=== PATIENT | female | born 1970 | race African-American/Black ===

== ENCOUNTER → 2016-10-05 | Outpatient (CLI) | payer MEDICAID ==
[~2016-10-05] MED LIST: ADENOSINE INJ 60 MG/20 ML VIAL IV ONE; REGADENOSON INJ 0.4 MG/5 ML DISP.SYRIN IV ONE
--- NOTE | 2016-10-06 15:03 | RADIOLOGY REPORT ---
STRESS TEST REPORT PAT[facility] NAME[id number] ROOM#: DATE OF SERVICE: 10/05/2016 AGE: 46Y ORDER#: [id number] REFERRING MD: DEA RUBIO M.D. INDICATION: For assessment of chest pains. PROCEDURE PERFORMED: REST/STRESS SINGLE ISOTOPE CARDIOLITE SPECT IMAGING WITH IV LEXISCAN STRES AND GATED SPECT IMAGING CLINICAL HISTORY This is a 46-year-old female with no known coronary artery disease but has two coronary artery risk factors of tobacco use and hypertension. Current symptomatology includes chest pains. PROCEDURE The patient received IV Lexiscan 0.4 mg infused over ten seconds and flushed. The resting heart rate was 77 bpm and increased to 86 bpm at end infusion. The resting BP was 127/71 and increased to 143/88 at end infusion. The patient had symptoms of mild dizziness, no chest pains, some shortness of breath. Resting 12 lead EKG showed normal sinus rhythm at 77 bpm. Anterolateral STT changes were seen. At end infusion, no additional changes were seen in the ST segments in the anterolateral leads. Myocardial perfusion imaging was performed at rest 60 minutes following injection of 13.03 mCi Cardiolite. Ten seconds after the IV Lexiscan injection, patient was injected with 43.0 mCi Cardiolite and flushed. Gated post stress tomographic imaging was performed 60 minutes after stress. FINDINGS The overall quality of the study is fair. The left ventricular cavity was noted to be normal in size on both the rest and stress studies. There was no evidence of abnormal transient ischemic dilatation of the left ventricle. The TID ratio was abnormal at 1.09 and normal. The SPECT images showed no evidence of any IV Lexiscan induced reversible ischemic defect and there was no fixed perfusion defects. The gated SPECT imaging showed no wall motion abnormality in any of the LV segments. The left ventricular ejection fraction was calculated to be 52%. IMPRESSION: 1. MYOCARDIAL PERFUSION IMAGING IS NORMAL. THERE IS NO EVIDENCE OF IV LEXISCAN INDUCED REVERSIBLE ISCHEMIA AND THERE IS NO FIXED PERFUSION DEFECT. OVERALL LEFT VENTRICULAR SYSTOLIC FUNCTION WAS NORMAL WITH NO REGIONAL WALL MOTION ABNORMALITY. LVEF WAS 52% NO PRIOR STUDIES FOR COMPARISON. INTERPRETING PHYSICIAN: DEA RUBIO M.D. /: ANGELA TT: [id number] ID: [id number] /: [id number] TD: [id number] JOB: [id number] cc:DEA RUBIO M.D. [facility]
== END ==
LOC: RAD 07:13
PROVIDERS: ATTEND Internal Medicine Cardiovascular Disease
DX: R07.89 Other chest pain (principal); I10 Essential (primary) hypertension; Z72.0 Tobacco use
CPT/HCPCS: 93017; 78452; A9500; J2785; J0153; Q9969

== ENCOUNTER → 2016-10-11 | Outpatient (CLI) | payer MEDICAID ==
[~2016-10-11] MED LIST changes: -ADENOSINE INJ 60 MG/20 ML VIAL IV ONE; +DIAZEPAM INJ 10 MG/2 ML DISP.SYRIN IV ONE; +HYDROMORPHONE HCL INJ/PF 2 MG/ML AMPULE IV ONE; -REGADENOSON INJ 0.4 MG/5 ML DISP.SYRIN IV ONE
[2016-10-11 12:08] LABS: HEMATOCRIT 35.2 % (36.0-47.0); HEMOGLOBIN 11.5 g/dL (12.0-15.5); HGB HCT DIFFERENCE -0.7; MEAN CORPUSCULAR HEMOGLOBIN 28.3 pg (27.0-33.4); MEAN CORPUSCULAR HGB CONC 32.7 g/dL (32.0-36.0); MEAN CORPUSCULAR VOLUME 87 fl (80-97); RED BLOOD COUNT 4.06 10^6/uL (3.72-5.28); RED CELL DISTRIBUTION WIDTH 14.1 % (11.5-14.0); WHITE BLOOD COUNT 3.9 10^3/uL (4.0-10.5)
[2016-10-11 12:33] LABS: ALANINE AMINOTRANSFERASE 35 U/L (9-52); ALBUMIN 4.4 g/dL (3.5-5.0); ALKALINE PHOSPHATASE 70 U/L (38-126); ANION GAP 14 (5-19); ASPARTATE AMINO TRANSFERASE 30 U/L (14-36); BILIRUBIN,TOTAL 0.7 mg/dL (0.2-1.3); BLOOD UREA NITROGEN 17 mg/dL (7-20); CALCIUM 10.1 mg/dL (8.4-10.2); CARBON DIOXIDE 25 mmol/L (22-30); CHLORIDE 101 mmol/L (98-107); CREATININE RESULT 1.22 mg/dL (0.52-1.25); Direct HDL 56 mg/dL (>40); GLUCOSE 82 mg/dL (75-110); POTASSIUM 4.6 mmol/L (3.6-5.0); SODIUM 140.3 mmol/L (137-145); TOTAL PROTEIN 7.9 g/dL (6.3-8.2); TRIGLYCERIDES 95 mg/dL (<150)
[2016-10-11 12:45] LABS: DIRECT LDL 224 mg/dL (<100)
[2016-10-11 12:46] LABS: CHOLESTEROL 341.43 mg/dL (0-200)
== END ==
LOC: OD 10:27
PROVIDERS: ATTEND Internal Medicine Cardiovascular Disease
DX: Z79.899 Other long term (current) drug therapy (principal); E66.9 Obesity, unspecified
CPT/HCPCS: 36415; 80048; 80061; 80076; 83036; 84443; 85027

== ENCOUNTER 2016-10-12 19:54 | Emergency (ER) | payer MEDICAID ==
--- NOTE | 2016-10-12 21:02 | ER Document Report ---
ED General - General Chief Complaint: Fall Injury Stated Complaint: FALL/BACK PAIN Mode of Arrival: Medic Information source: Patient Notes: 46-year-old female presents with complaints of left shoulder left hip pain. Patient notes she has a history of chronic intermittent numbness. States she was going to take a step and discharged her step. Patient fell on the left side. Patient admits to pain with ambulation movement of the left shoulder. Denies any loss of bowel or bladder function denies any cauda equina concerns TRAVEL OUTSIDE OF THE [place] IN LAST 30 DAYS: No - HPI Onset: Just prior to arrival Onset/Duration: Sudden Quality of pain: Achy Severity: Mild Pain Level: 1 Associated symptoms: Body/muscle aches Exacerbated by: Movement Relieved by: Denies Similar symptoms previously: Yes Recently seen / treated by doctor: Yes - Related Data Allergies/Adverse Reactions: aspirin [Aspirin] Allergy (Intermediate, Verified 02/10/16 21:44) rash strawberry [[place]] Allergy (Mild, Verified 02/10/16 21:44) Hives Past Medical History - Social History Smoking Status: Never Smoker Cigarette use (# per day): No Chew tobacco use (# tins/day): No Smoking Education Provided: No Family History: Reviewed & Not Pertinent Patient has suicidal ideation: No Patient has homicidal ideation: No - Past Medical History Cardiac Medical History: Reports: Hx Hypertension Pulmonary Medical History: Reports: Hx Asthma Neurological Medical History: Reports: Hx Cerebrovascular Accident - mild 2009, Hx Seizures Endocrine Medical History: Reports: Hx Hypothyroidism Renal/ Medical History: Denies: Hx Peritoneal Dialysis Musculoskeltal Medical History: Denies Hx Arthritis Past Surgical History: Reports: Hx Orthopedic Surgery - back; March 15 2016. Denies: Hx Hysterectomy - Immunizations Hx Diphtheria, Pertussis, Tetanus Vaccination: No Review of Systems - Review of Systems Notes: REVIEW OF SYSTEMS: CONSTITUTIONAL : Denies fever, chills, or sweats. Denies recent illness. EENT: Denies eye, ear, throat, or mouth pain or symptoms. Denies nasal or sinus congestion or discharge. Denies throat, tongue, or mouth swelling or difficulty swallowing. CARDIOVASCULAR: Denies chest pain. Denies palpitations or racing or irregular heart beat. Denies ankle edema. RESPIRATORY: Denies cough, cold, or chest congestion. Denies shortness of breath, difficulty breathing, or wheezing. GASTROINTESTINAL: Denies abdominal pain or distention. Denies nausea, vomiting , or diarrhea. Denies blood in vomitus, stools, or per rectum. Denies black, tarry stools. Denies constipation. GENITOURINARY: Denies difficulty urinating, painful urination, burning, frequency, blood in urine, or discharge. FEMALE GENITOURINARY: Denies vaginal bleeding, heavy or abnormal periods, irregular periods. Denies vaginal discharge or odor. MUSCULOSKELETAL: Admits to left shoulder left hip pain SKIN: Denies rash, lesions or sores. HEMATOLOGIC : Denies easy bruising or bleeding. LYMPHATIC: Denies swollen, enlarged glands. NEUROLOGICAL: Denies confusion or altered mental status. Denies passing out or loss of consciousness. Denies dizziness or lightheadedness. Denies headache. Denies weakness or paralysis or loss of use of either side. Denies problems with gait or speech. Denies sensory loss, numbness, or tingling. Denies seizures. PSYCHIATRIC: Denies anxiety or stress. Denies depression, suicidal ideation, or homicidal ideation. ALL OTHER SYSTEMS REVIEWED AND NEGATIVE. Dictation was performed using [employer] voice recognition software PHYSICAL EXAMINATION: GENERAL: Well-appearing, well-nourished and in no acute distress. HEAD: Atraumatic, normocephalic. EYES: Pupils equal round and reactive to light, extraocular movements intact, conjunctiva are normal. ENT: Nares patent, oropharynx clear without exudates. Moist mucous membranes. NECK: Normal range of motion, supple without lymphadenopathy LUNGS: Breath sounds clear to auscultation bilaterally and equal. No wheezes rales or rhonchi. HEART: Regular rate and rhythm without murmurs ABDOMEN: Soft, nontender, nondistended abdomen. No guarding, no rebound. No masses appreciated. Female : deferred Musculoskeletal: Normal range of motion, no pitting or edema. No cyanosis. NEUROLOGICAL: Cranial nerves grossly intact. Normal speech, normal gait. Normal sensory, motor exams pulses are intact PSYCH: Normal mood, normal affect. SKIN: Warm, Dry, normal turgor, no rashes or lesions noted. Course - Re-evaluation Re-evalutation: 10/12/16 21:46 Patient does have tenderness of the left shoulder and left hip. X-rays noted no significant abnormality and I expect any traumatic injuries. Patient notes she takes 15 of oxycodone for her chronic back pain. Is noted in multiple previous charts the patient has numbness of the left lower extremity Patient has no cauda equina concerns 10/12/16 22:09 Patient requests a sling for comfort this will be provided to her. Family member wish to take patient home I will discharge at this time After performing a Medical Screening Examination, I estimate there is LOW risk for EXPANDING OR RUPTURED ABDOMINAL AORTIC ANEURYSM, CAUDA EQUINA SYNDROME, EPIDURAL MASS LESION, or HERNIATED DISK CAUSING SEVERE SPINAL STENOSIS, thus I consider the discharge disposition reasonable. The patient and I have discussed the diagnosis and risks, and we agree with discharging home and close follow-up. We also discussed returning to the Emergency Department immediately if new or worsening symptoms occur with the understanding that symptoms and presentations can change. We have discussed the symptoms which are most concerning (e.g., saddle anesthesia, urinary or bowel incontinence or retention , changing or worsening pain) that necessitate immediate return. - Diagnostic Test Radiology reviewed: Image reviewed, Reports reviewed - Reports and images given to family Discharge - Discharge Clinical Impression: Left hip pain Left shoulder pain Qualifiers: Chronicity: acute Qualified Code(s): M25.512 - Pain in left shoulder Fall Qualifiers: Encounter type: initial encounter Qualified Code(s): W19.XXXA - Unspecified fall, initial encounter Condition: Stable Disposition: HOME, SELF-CARE Instructions: Contusion ([facility]), Shoulder Injury ([facility]) Prescriptions: Morphine Sulfate [Morphine Ir 15 Mg Tablet] 15 mg PO Q8 #10 tablet Referrals: DONNA SCHREIBER MD [Primary Care Provider] - Follow up as needed JONATHAN HINSON MD [ACTIVE STAFF] - Follow up tomorrow
[2016-10-12] MEDS ORDERED: DIAZEPAM INJ 10 MG/2 ML DISP.SYRIN IV ONE (21:43)
[2016-10-12] MEDS ORDERED: HYDROMORPHONE HCL INJ/PF 2 MG/ML AMPULE IV ONE (21:43)
[2016-10-12 22:42] VITALS: BP 143/85
== END 2016-10-12 22:42 | disposition home or self-care (01) ==
LOC: ER 19:54
DX: M25.512 Pain in left shoulder (principal); M25.552 Pain in left hip; W10.9XXA Fall (on) (from) unspecified stairs and steps, initial encounter; R20.0 Anesthesia of skin; M54.9 Dorsalgia, unspecified; G89.29 Other chronic pain; J45.909 Unspecified asthma, uncomplicated; I10 Essential (primary) hypertension; Z79.891 Long term (current) use of opiate analgesic; Z86.73 Personal history of transient ischemic attack (TIA), and cerebral infarction without residual deficits; Z88.6 Allergy status to analgesic agent; Z91.018 Allergy to other foods
CPT/HCPCS: 99283; 96374; 96375; 73502; 73030; J3360; J1170

== ENCOUNTER → 2016-10-20 | Outpatient (CLI) | payer MEDICAID | LOC: RAD 12:57 | PROVIDERS: ATTEND Family Medicine | DX: S20.212A Contusion of left front wall of thorax, initial encounter (principal); Z98.1 Arthrodesis status | CPT/HCPCS: 72110 ==

== ENCOUNTER 2016-12-22 16:15 | Emergency (ER) | payer MEDICAID ==
[2016-12-23 11:03] LABS: ABSOLUTE BASOPHILS # (AUTO) 0.1 10^3/uL (0.0-0.2); ABSOLUTE EOSINOPHILS # (AUTO) 0.1 10^3/uL (0.0-0.6); ABSOLUTE MONOCYTES (AUTO) 0.4 10^3/uL (0.1-1.4); ABSOLUTE NEUT (AUTO) 2.7 10^3/uL (1.7-8.2); BASOPHILS % (AUTO) 1.1 % (0-2); EOSINOPHILS % (AUTO) 1.7 % (0-6); HEMATOCRIT 39.5 % (36.0-47.0); HEMOGLOBIN 12.9 g/dL (12.0-15.5); HGB HCT DIFFERENCE -0.8; LYMPHOCYTES % (AUTO) 38.5 % (13-45); MEAN CORPUSCULAR HEMOGLOBIN 28.8 pg (27.0-33.4); MEAN CORPUSCULAR HGB CONC 32.7 g/dL (32.0-36.0); MEAN CORPUSCULAR VOLUME 88 fl (80-97); MONOCYTES % (AUTO) 7.3 % (3-13); RED CELL DISTRIBUTION WIDTH 15.8 % (11.5-14.0); SEGMENTED NEUTROPHILS % (AUTO) 51.4 % (42-78); WHITE BLOOD COUNT 5.3 10^3/uL (4.0-10.5)
[2016-12-23 11:45] LABS: CALCIUM 10.1 mg/dL (8.4-10.2); GLUCOSE 102 mg/dL (75-110)
[2016-12-23 11:46] LABS: ANION GAP 12 (5-19); BLOOD UREA NITROGEN 24 mg/dL (7-20); CARBON DIOXIDE 26 mmol/L (22-30); CHLORIDE 104 mmol/L (98-107); CREATININE RESULT 1.35 mg/dL (0.52-1.25); POTASSIUM 4.4 mmol/L (3.6-5.0); SODIUM 142.2 mmol/L (137-145)
[2016-12-23 11:47] LABS: ALANINE AMINOTRANSFERASE 26 U/L (9-52); ALBUMIN 4.3 g/dL (3.5-5.0); ALKALINE PHOSPHATASE 65 U/L (38-126); ASPARTATE AMINO TRANSFERASE 42 U/L (14-36); BILIRUBIN,DIRECT 0.3 mg/dL (0.0-0.4); BILIRUBIN,TOTAL 0.3 mg/dL (0.2-1.3); TOTAL PROTEIN 8.4 g/dL (6.3-8.2)
[2016-12-23 14:12] LABS: APPEARANCE,URINE CLEAR; BILIRUBIN,URINE NEGATIVE (NEGATIVE); GLUCOSE, URINE NEGATIVE (NEGATIVE); KETONES,URINE NEGATIVE (NEGATIVE); LEUKOCYTE ESTERASE,URINE NEGATIVE (NEGATIVE); NITRITE,URINE NEGATIVE (NEGATIVE); PROTEIN,URINE NEGATIVE (NEGATIVE); URINE SPECIFIC GRAVITY 1.011; UROBILINOGEN,URINE NEGATIVE mg/dL (<2.0)
== END 2016-12-22 19:30 | disposition left against medical advice (07) ==
LOC: ER 16:15
DX: Z53.9 Procedure and treatment not carried out, unspecified reason (principal)
CPT/HCPCS: 36415; 80053; 81001; 84703; 85025

== ENCOUNTER → 2016-12-27 | Outpatient (CLI) | payer MEDICARE, MEDICAID ==
--- NOTE | 2016-12-28 11:11 | RADIOLOGY REPORT (SQ) ---
EXAM DESCRIPTION: MRI HEAD COMBO COMPLETED DATE/TIME: 12/27/2016 5:09 pm REASON FOR STUDY: SEIZURES G40.89 OTHER SEIZURES COMPARISON: None. TECHNIQUE: Multiplanar imaging includes noncontrasted T1, T2, FLAIR, diffusion with ADC map and post gadolinium contrast T1 sequences. Images stored on PACS. CONTRAST TYPE AND DOSE: 20 mL Multihance. RENAL FUNCTION: GFR 51 LIMITATIONS: Motion. FINDINGS: ANATOMY: No anomalies. Normal vascular flow voids. Pituitary fossa normal. CSF SPACES: Normal in size and contour. No hemorrhage. CEREBRUM: Sulci and gyri normal in size and contour. Normal white matter signal on FLAIR imaging. No evidence of hemorrhage, mass, or extraaxial fluid collection. No abnormal enhancement post contrast. POSTERIOR FOSSA: No signal alteration. No hemorrhage. No edema, masses, or mass effect. Internal tiffanie tory canals, cerebellopontine angles, mastoids normal. No enhancing lesions. No abnormal enhancement post contrast. DIFFUSION IMAGING: Negative for acute or subacute infarction. ORBITS: No masses. Globes normal. PARANASAL SINUSES: No fluid levels. Mucosa normal. OTHER: No other significant finding. IMPRESSION: Normal brain. TECHNICAL DOCUMENTATION: JOB ID: [id number] [employer]- All Rights Reserved
== END ==
LOC: RAD 13:52
PROVIDERS: ATTEND Specialist
DX: G40.89 Other seizures (principal)
CPT/HCPCS: 70553; A9577

== ENCOUNTER 2017-01-25 16:04 | Emergency (ER) | payer MEDICARE, MEDICAID ==
--- NOTE | 2017-01-25 16:34 | ER Document Report ---
ED Seizure - General Chief Complaint: Probable Seizure Stated Complaint: POSSIBLE SEIZURE Time Seen by Provider: 01/25/17 16:21 Information source: Patient Notes: 47-year-old female who presents today with EMS from her pain management physician's office at the patient supposedly had a witnessed tonic-clonic seizure. Patient states she has had a history of seizure disorders since she was 14[address] seals of the neurologist. Patient supposedly had a recent change of medications, being taken off Topamax and started on Zonegran. Patient states she normally has around 1-2 seizures a month. Patient denied any symptoms prior to or after the seizure other than just feeling "tired now". It was a witnessed seizure with no head trauma. Patient denies any headache, neck pain, chest pain, abdominal pain, or weakness or numbness. Patient takes seizure medication, oxycodone 10 mg, Valium 5 mg, and alprazolam. Patient states she does not drive a car. Patient denies missing any seizure medications. Patient's last seizure she states was 3 weeks ago. TRAVEL OUTSIDE OF THE [place] IN LAST 30 DAYS: No - HPI Patient complains to provider of: History of seizures Quality of pain: No pain Severity: Moderate Pain Level: Denies Continued on arrival to ED: No Can details of seizure be obtained/verified: Yes Episode witnessed (by whom): Yes Current seizure medications: Other - See above Preceding symptoms/context: Changed meds or dosage - See above. denies: Recent illness/fever, Sleep deprivation, Missed dose of meds Character of seizure: Complete loss/conscious, Generalized shaking Post-ictal symptoms: Confusion, Other - See above Injuries: None - Related Data Allergies/Adverse Reactions: aspirin [Aspirin] Allergy (Intermediate, Verified 02/10/16 21:44) rash strawberry [[place]] Allergy (Mild, Verified 02/10/16 21:44) Hives Home Medications: Current Home Medications Citalopram Hydrobromide [Celexa] 1 tab PO DAILY 01/25/17 [History] Diazepam 5 mg PO DAILY 01/25/17 [History] Levothyroxine Sodium 100 mcg PO DAILY 01/25/17 [History] Metoprolol Tartrate 100 mg PO BID 01/25/17 [History] Oxycodone HCl 15 mg PO DAILY PRN 01/25/17 [History] Zonisamide 100 mg PO DAILY 01/25/17 [History] Past Medical History - General Information source: Patient - Social History Smoking Status: Unknown if Ever Smoked Cigarette use (# per day): No Chew tobacco use (# tins/day): No Smoking Education Provided: No Frequency of alcohol use: None Drug Abuse: None Family History: Reviewed & Not Pertinent - Past Medical History Cardiac Medical History: Reports: Hx Hypertension Pulmonary Medical History: Reports: Hx Asthma Neurological Medical History: Reports: Hx Cerebrovascular Accident - mild 2009, Hx Seizures Endocrine Medical History: Reports: Hx Hypothyroidism Renal/ Medical History: Denies: Hx Peritoneal Dialysis Musculoskeltal Medical History: Denies Hx Arthritis Past Surgical History: Reports: Hx Orthopedic Surgery - back; March 15 2016. Denies: Hx Hysterectomy - Immunizations Hx Diphtheria, Pertussis, Tetanus Vaccination: No Review of Systems - Review of Systems Constitutional: denies: Fever EENT: denies: Eye discharge, Nose discharge Cardiovascular: denies: Chest pain, Palpitations Respiratory: denies: Short of breath Gastrointestinal: denies: Vomiting Genitourinary: denies: Dysuria Musculoskeletal: denies: Leg swelling Skin: Other - no hives. denies: Rash Neurological/Psychological: Other - no slurred speech -: Yes All other systems reviewed and negative Physical Exam - Vital signs Vitals: Temp Resp 98.1 F 20 01/25/17 16:05 01/25/17 16:05 Notes: Reviewed vital signs and nursing note as charted by RN. CONSTITUTIONAL: Alert and oriented and responds appropriately to questions. Well -appearing; well-nourished HEAD: Normocephalic; atraumatic EYES: PERRL; no nystagmus NECK: Supple without meningismus; no carotid bruits; non-tender; no cervical lymphadenopathy, no masses CARD: Regular rate and rhythm; no murmurs, no clicks, no rubs, no gallops; symmetric distal pulses RESP: Normal chest excursion without splinting or tachypnea; breath sounds clear and equal bilaterally ABD/GI: Normal bowel sounds; non-distended; soft, non-tender BACK: The back appears normal and is non-tender to palpation EXT: Normal ROM in all joints; non-tender to palpation; no cyanosis, no effusions, no edema SKIN: Normal color for age and race; warm; dry; good turgor; capillary refill < 2 seconds; no acute lesions noted NEURO: CN II through XII are intact. Patient has 5 out of 5 bilateral upper and lower extremity strength or sensation intact to light touch PSYCH: The patient's mood and manner are appropriate. Grooming and personal hygiene are appropriate. Course - Re-evaluation Re-evalutation: 01/25/17 16:37 Given the above history and physical examination, with stable vital signs, witnessed seizure with no trauma, history of seizures as well as being on multiple other medications including pain medication and antianxiety medications , I do not believe that a CT scan of the head is necessary. Given that the patient normally has around one seizure per month, with this being the first seizure after 3 weeks, I do not believe we need to adjust medications at this time. 01/25/17 18:28 Chemistry as recorded. Creatinine is baseline. Patient is tolerating p.o. fluids. Patient still has no headache or focal neurological deficits. - Vital Signs Vital signs: Temp Pulse Resp BP Pulse Ox 98.1 F 16 134/74 H 100 01/25/17 16:05 01/25/17 16:18 01/25/17 16:18 01/25/17 16:18 - Laboratory Result Diagrams: 01/25/17 16:50 01/25/17 16:50 Laboratory results interpreted by me: 01/25/17 16:50 BUN 22 H Creatinine 1.32 H Est GFR ( Amer) 52 L Est GFR (Non-Af Amer) 43 L Discharge - Discharge Clinical Impression: Seizure Condition: Good Disposition: HOME, SELF-CARE Additional Instructions: Come back immediately with any weakness or numbness, fever, pain, repeat seizures, or any other acute problems. Please do not drive a car, take a bath, go swimming, or engage in any other activities that may cause serious harm or if you should have a repeat seizure episode. Please follow-up with your neurologist
[2017-01-25 17:36] LABS: ALANINE AMINOTRANSFERASE 27 U/L (9-52); ALBUMIN 4.2 g/dL (3.5-5.0); ALKALINE PHOSPHATASE 57 U/L (38-126); ANION GAP 11 (5-19); ASPARTATE AMINO TRANSFERASE 30 U/L (14-36); BILIRUBIN,DIRECT 0.3 mg/dL (0.0-0.4); BILIRUBIN,TOTAL 0.3 mg/dL (0.2-1.3); BLOOD UREA NITROGEN 22 mg/dL (7-20); CALCIUM 9.9 mg/dL (8.4-10.2); CARBON DIOXIDE 22 mmol/L (22-30); CHLORIDE 105 mmol/L (98-107); CREATININE RESULT 1.32 mg/dL (0.52-1.25); GLUCOSE 89 mg/dL (75-110); POTASSIUM 4.1 mmol/L (3.6-5.0); SODIUM 137.5 mmol/L (137-145); TOTAL PROTEIN 7.8 g/dL (6.3-8.2)
[2017-01-25] MEDS ORDERED: NORMAL SALINE 1000 ML 1,000 ML IV ONE (18:27)
[2017-01-25 18:36] LABS: ABSOLUTE EOSINOPHILS # (AUTO) 0.2 10^3/uL (0.0-0.6); ABSOLUTE LYMPHOCYTES (AUTO) 1.6 10^3/uL (0.5-4.7); ABSOLUTE MONOCYTES (AUTO) 0.4 10^3/uL (0.1-1.4); ABSOLUTE NEUT (AUTO) 2.3 10^3/uL (1.7-8.2); BASOPHILS % (AUTO) 0.9 % (0-2); EOSINOPHILS % (AUTO) 3.6 % (0-6); HEMATOCRIT 36.5 % (36.0-47.0); HEMOGLOBIN 11.9 g/dL (12.0-15.5); HGB HCT DIFFERENCE -0.8; LYMPHOCYTES % (AUTO) 35.1 % (13-45); MEAN CORPUSCULAR HEMOGLOBIN 29.2 pg (27.0-33.4); MEAN CORPUSCULAR HGB CONC 32.6 g/dL (32.0-36.0); MEAN CORPUSCULAR VOLUME 90 fl (80-97); MONOCYTES % (AUTO) 9.7 % (3-13); RED BLOOD COUNT 4.07 10^6/uL (3.72-5.28); SEGMENTED NEUTROPHILS % (AUTO) 50.7 % (42-78); WHITE BLOOD COUNT 4.5 10^3/uL (4.0-10.5)
[2017-01-25 18:48] VITALS: BP 126/87
== END 2017-01-25 18:57 | disposition home or self-care (01) ==
LOC: ER 16:04
DX: G40.909 Epilepsy, unspecified, not intractable, without status epilepticus (principal); I10 Essential (primary) hypertension; J45.909 Unspecified asthma, uncomplicated; Z79.899 Other long term (current) drug therapy; Z79.891 Long term (current) use of opiate analgesic; Z88.6 Allergy status to analgesic agent; Z91.013 Allergy to seafood; Z86.73 Personal history of transient ischemic attack (TIA), and cerebral infarction without residual deficits
CPT/HCPCS: 36415; 80053; 84703; 85025; 99284

== ENCOUNTER 2017-02-23 19:34 | Emergency (ER) | payer MEDICARE, MEDICAID ==
--- NOTE | 2017-02-23 21:05 | ER Document Report ---
ED Dizziness/Weakness - General Chief Complaint: Dizziness Stated Complaint: DIZZY, HEAD PAIN, METALLIC TASTE IN MOUTH Time Seen by Provider: 02/23/17 20:36 Mode of Arrival: Ambulatory Information source: Patient Notes: No female presents to ED for dizziness headaches since Tuesday. She states she was diagnosed by Dr. Sauceda with vertigo 3 months ago and she has a history of seizures and is on diazepam for my Vimpat seizures she was started on a vertigo medicine today but she did not pick it up Komal's office today for an hour and he agreed to increase her zonisamide 200 mg twice daily but the prescription was not at the pharmacy. Also hypothyroid high blood pressure anxiety depression arthritis and herniated and shattered disc. TRAVEL OUTSIDE OF THE [place] IN LAST 30 DAYS: No - HPI Patient complains to provider of: Dizziness, Vertigo Onset: Last week Onset/Duration: Intermittent Quality of pain: Achy Severity: Moderate Pain Level: 3 Associated symptoms: Dizzy, Vertigo Exacerbated by: Change in position Baseline gait: Walks w/o assistance - Related Data Allergies/Adverse Reactions: aspirin [Aspirin] Allergy (Intermediate, Verified 02/23/17 19:56) rash strawberry [[place]] Allergy (Mild, Verified 02/23/17 19:56) Hives Past Medical History - General Information source: Patient - Social History Smoking Status: Never Smoker Cigarette use (# per day): No Chew tobacco use (# tins/day): No Smoking Education Provided: No Frequency of alcohol use: None Drug Abuse: None Lives with: Parents Family History: Arthritis, DM, Hyperlipidemia. denies: CAD, COPD, CVA, Hypertension, Malignancy, Thyroid Disfunction Patient has suicidal ideation: No Patient has homicidal ideation: No - Past Medical History Cardiac Medical History: Reports: Hx Hypertension Pulmonary Medical History: Reports: Hx Asthma EENT Medical History: Reports: None Neurological Medical History: Reports: Hx Cerebrovascular Accident - mild 2009, Hx Seizures Endocrine Medical History: Reports: Hx Hypothyroidism Renal/ Medical History: Reports: None Malignancy Medical History: Reports: None GI Medical History: Reports: None Musculoskeltal Medical History: Reports Hx Arthritis, Reports Hx Musculoskeletal Deformity, Reports Hx Musculoskeletal Trauma Skin Medical History: Reports None Psychiatric Medical History: Reports: Hx Anxiety, Hx Depression Traumatic Medical History: Reports: None Infectious Medical History: Reports: None Past Surgical History: Reports: Hx Orthopedic Surgery - back; March 15 2016 - Immunizations Immunizations up to date: No Hx Diphtheria, Pertussis, Tetanus Vaccination: No Review of Systems - Review of Systems Constitutional: No symptoms reported EENT: No symptoms reported Cardiovascular: Dizziness Respiratory: No symptoms reported Gastrointestinal: No symptoms reported Genitourinary: No symptoms reported Female Genitourinary: No symptoms reported Musculoskeletal: No symptoms reported Skin: No symptoms reported Hematologic/Lymphatic: No symptoms reported Neurological/Psychological: Headaches -: Yes All other systems reviewed and negative Physical Exam - Vital signs Vitals: Temp Pulse Resp BP Pulse Ox 98.6 F 65 16 148/83 H 100 02/23/17 19:47 02/23/17 19:47 02/23/17 19:47 02/23/17 19:47 02/23/17 19:47 Interpretation: Normal - General General appearance: Appears well, Alert - HEENT Head: Normocephalic, Atraumatic Eyes: Normal Pupils: PERRL - Respiratory Respiratory status: No respiratory distress Chest status: Nontender Breath sounds: Normal Chest palpation: Normal - Cardiovascular Rhythm: Regular Heart sounds: Normal auscultation Murmur: No - Abdominal Inspection: Normal Distension: No distension Bowel sounds: Normal Tenderness: Nontender Organomegaly: No organomegaly - Back Back: Normal, Nontender - Extremities General upper extremity: Normal inspection, Nontender, Normal color, Normal ROM , Normal temperature General lower extremity: Normal inspection, Nontender, Normal color, Normal ROM , Normal temperature, Normal weight bearing. No: Teri's sign - Neurological Neuro grossly intact: Yes Cognition: Normal Orientation: AAOx4 Nely Coma Scale Eye Opening: Spontaneous Nely Coma Scale Verbal: Oriented Nely Coma Scale Motor: Obeys Commands Nely Coma Scale Total: 15 Speech: Normal Motor strength normal: LUE, RUE, LLE, RLE Sensory: Normal - Psychological Associated symptoms: Normal affect, Normal mood - Skin Skin Temperature: Warm Skin Moisture: Dry Skin Color: Normal Course - Re-evaluation Re-evalutation: 02/23/17 23:47 Dr. Sauceda earlier this evening and spoke with his who stated that she will be prescribed a prescription for this patient's zonisamide she was given a dose tonight. The patient is now stable she is able to get up and down she has had no seizures during her stay here in the emergency room. Her labs are stable and I have given her copy of the labs to follow-up with her primary doctor. To continue all medications as prescribed. - Vital Signs Vital signs: Temp Pulse Resp BP Pulse Ox 98.6 F 69 16 161/95 H 100 02/23/17 19:47 02/23/17 23:42 02/23/17 23:42 02/23/17 23:42 02/23/17 23:01 - Laboratory Result Diagrams: 02/23/17 21:49 02/23/17 21:49 Laboratory results interpreted by me: 02/23/17 02/23/17 02/23/17 21:49 21:49 21:49 RDW 15.6 H Creatinine 1.44 H Est GFR ( Amer) 47 L Est GFR (Non-Af Amer) 39 L Total Protein 8.3 H Ur Leukocyte Esterase TRACE H Discharge - Discharge Clinical Impression: Dizziness, Vertigo Condition: Stable Disposition: HOME, SELF-CARE Additional Instructions: DIZZINESS: Under normal circumstances, your sense of balance is controlled by a number of signals that your brain receives from several locations: Eyes. No matter what your position, visual signals help you determine where your body is in space and how it's moving. Sensory nerves. These are in your skin, muscles and joints. Sensory nerves send messages to your brain about body movements and positions. Inner ear. The organ of balance in your inner ear is the vestibular labyrinth. It includes loop-shaped structures (semicircular canals) that contain fluid and fine, hair-like sensors that monitor the rotation of your head. Near the semicircular canals are the utricle and saccule, which contain tiny particles called otoconia (o-nci-KAW-nee-uh). These particles are attached to sensors that help detect gravity and gsay-ygp-cdngm motion. Good balance depends on at least two of these three sensory systems working well. For instance, closing your eyes while washing your hair in the shower doesn't mean you'll lose your balance. Signals from your inner ear and sensory nerves help keep you upright. However, if your central nervous system can't process signals from all of these locations, if the messages are contradictory, or if the sensory systems aren't functioning properly, you may experience loss of balance. Dizziness may have a number of potential causes. These may include: Vertigo Vertigo - the false sense of motion or spinning - is the most common symptom of dizziness. Sitting up or moving around may make it worse. Sometimes vertigo is severe enough to cause nausea and vomiting. Vertigo usually results from a problem with the nerves and the structures of the balance mechanism in your inner ear (vestibular system), which sense movement and changes in your head position. Abnormal rhythmic eye movements ( nystagmus) almost always accompany vertigo. Causes of vertigo may include: Benign paroxysmal positional vertigo (BPPV). BPPV involves intense, brief episodes of vertigo associated with a change in the position of your head, often when you turn over in bed or sit up in the morning. It occurs when normal calcium carbonate crystals (otoconia) break loose and fall into the wrong part of the canals in your inner ear. When these particles shift, they stimulate sensors in your ear, producing an episode of vertigo. Doctors don't know what causes BPPV, but it may be a natural result of aging. Trauma to your head also may lead to BPPV. Inflammation in the inner ear. Signs and symptoms of inflammation of the inner ear (acute vestibular neuronitis or labyrinthitis) include sudden, intense vertigo that may persist for several days, with nausea and vomiting. It can be incapacitating, requiring bed rest to minimize the signs and symptoms. Fortunately, vestibular neuronitis generally subsides and clears up on its own. Recovery time may be shorter with vestibular rehabilitation exercises. Although the cause of this condition is unknown, it may be a viral infection. Meniere's disease. This disease involves the excessive buildup of fluid in your inner ear. It may affect adults at any age and is characterized by sudden episodes of vertigo lasting 30 minutes to an hour or longer. Other signs and symptoms include the feeling of fullness in your ear, buzzing or ringing in your ear (tinnitus), and fluctuating hearing loss. The cause of Meniere's disease is unknown. Vestibular migraine. People who experience a vestibular migraine are very sensitive to motion. Dizziness and vertigo caused by a vestibular migraine may be triggered by turning your head quickly, being in a crowded or confusing place , driving or riding in a vehicle, or even watching movement on TV. A vestibular migraine may cause feelings of imbalance or unsteadiness, hearing loss, "muffled " hearing, or ringing in your ears (tinnitus). For most people with a vestibular migraine, vertigo doesn't necessarily happen at the same time as the headache. Instead, typical migraine triggers may lead to vertigo without an actual migraine. Attacks of migrainous vertigo can last from a few minutes to several days. Acoustic neuroma. An acoustic neuroma (schwannoma) is a noncancerous (benign ) growth on the acoustic nerve, which connects the inner ear to your brain. Signs and symptoms of an acoustic neuroma may include dizziness, loss of balance , hearing loss and tinnitus. Rapid changes in motion. Riding on roller coasters or in boats, cars or even airplanes may on occasion make you dizzy. Other causes. Rarely, vertigo can be a symptom of a more serious neurological problem such as a stroke, brain hemorrhage or multiple sclerosis. Feeling of faintness (presyncope) "Presyncope" is the medical term for feeling faint and lightheaded without losing consciousness. Sometimes nausea, pale skin and a sense of dizziness accompany a feeling of faintness. Causes of presyncope include: Drop in blood pressure (orthostatic hypotension). A dramatic drop in your systolic blood pressure - the higher number in your blood pressure reading - may result in lightheadedness or a feeling of faintness. It can occur after sitting up or standing too quickly. Inadequate output of blood from the heart. Conditions such as partially blocked arteries (atherosclerosis), disease of the heart muscle (cardiomyopathy) , abnormal heart rhythm (arrhythmia) or a decrease in blood volume may cause inadequate blood flow from your heart. Loss of balance (disequilibrium) Disequilibrium is the loss of balance or the feeling of unsteadiness when you walk. Causes may include: Inner ear (vestibular) problems. Abnormalities with your inner ear can cause you to feel like you are floating, have a heavy head or are unsteady in the dark. Sensory disorders. Failing vision and nerve damage in your legs (peripheral neuropathy) are common in older adultsand may result in difficulty maintaining your balance. Joint and muscle problems. Muscle weakness and osteoarthritis - the type of arthritis that involves wear and tear of your joints - can contribute to loss of balance when it involves your weight-bearing joints. Medications. Loss of balance can be a side effect of certain medications, such as anti-seizure drugs, sedatives and tranquilizers. Lightheadedness and other kinds of dizziness Feeling lightheaded is the feeling of being "spaced out" or having the sensation of spinning inside your head. It can also give you the sensation that if your lightheadedness worsens, you might lose consciousness. Causes may include: Inner ear disorders. These abnormalities of your inner ear can lead to illusions of motion and make you feel like you're floating. Anxiety disorders. Certain anxiety disorders, such as panic attacks and a fear of leaving home or being in large, open spaces (agoraphobia), may cause lightheadedness. Hyperventilation. Abnormally rapid breathing that often accompanies anxiety disorders may make you feel lightheaded. NORMAL EXAM AND WORKUP: At this time, your examination and workup show no significant abnormality. No significant abnormal physical findings were noted. All laboratory, EKG, and imaging (x-ray, CT scans, ultrasound) studies that were ordered show no significant abnormality. Although your examination and all studies that were ordered showed no significant abnormal finding, there are no examinations and no studies that are 100% accurate. There is always the possibility that some abnormality could exist and not be detected with physical examination or within the limits and capabilities of laboratory and other studies. You should return or follow up as you were instructed on your visit today for further evaluation if your symptoms do not resolve. ANTINAUSEA MEDICATION: You have been given a medication to suppress nausea and vomiting. This type of medication can be given as a shot, pill, or suppository. It will usually last for many hours. Pills and shots usually last six to eight hours, suppositories last about 12 hours. For the typical illness, only one or two doses of the medication may be necessary. Mild lightheadedness may occur. This type of medicine can cause drowsiness. Do not drive or operate dangerous machinery while under its influence. Do not mix with alcohol. See your doctor at once if you have muscle spasms or tightness, or uncontrollable motions (particularly of the neck, mouth, or jaw). Persistent vomiting or severe lightheadedness should also be evaluated by the physician. FOLLOW-UP CARE: If you have been referred to a physician for follow-up care, call the physician s office for an appointment as you were instructed or within the next two days. If you experience worsening or a significant change in your symptoms, notify the physician immediately or return to the Emergency Department at any time for re-evaluation. Your labs have been provided to you to follow-up with your primary doctor. Please make take medications as prescribed. Your prescription for zonisamide been E prescribed by Dr. Sauceda. Forms: Elevated Blood Pressure Referrals: DONNA SCHREIBER MD [Primary Care Provider] - Follow up as needed VIVIANE SAUCEDA MD [EMERITUS] - Follow up as needed
[2017-02-23] MEDS ORDERED: ZONISAMIDE 100 MG CAPSULE PO ONE (21:11)
[2017-02-23 21:58] LABS: ABSOLUTE EOSINOPHILS # (AUTO) 0.1 10^3/uL (0.0-0.6); ABSOLUTE LYMPHOCYTES (AUTO) 1.8 10^3/uL (0.5-4.7); ABSOLUTE MONOCYTES (AUTO) 0.3 10^3/uL (0.1-1.4); ABSOLUTE NEUT (AUTO) 2.3 10^3/uL (1.7-8.2); BASOPHILS % (AUTO) 0.9 % (0-2); EOSINOPHILS % (AUTO) 2.8 % (0-6); HEMATOCRIT 40.8 % (36.0-47.0); HEMOGLOBIN 13.3 g/dL (12.0-15.5); HGB HCT DIFFERENCE -0.9; LYMPHOCYTES % (AUTO) 38.7 % (13-45); MEAN CORPUSCULAR HEMOGLOBIN 29.9 pg (27.0-33.4); MEAN CORPUSCULAR HGB CONC 32.6 g/dL (32.0-36.0); MEAN CORPUSCULAR VOLUME 92 fl (80-97); MONOCYTES % (AUTO) 7.3 % (3-13); RED BLOOD COUNT 4.45 10^6/uL (3.72-5.28); RED CELL DISTRIBUTION WIDTH 15.6 % (11.5-14.0); SEGMENTED NEUTROPHILS % (AUTO) 50.3 % (42-78); WHITE BLOOD COUNT 4.7 10^3/uL (4.0-10.5)
[2017-02-23 22:13] LABS: ALANINE AMINOTRANSFERASE 39 U/L (9-52); ALBUMIN 4.6 g/dL (3.5-5.0); ALKALINE PHOSPHATASE 61 U/L (38-126); ANION GAP 11 (5-19); ASPARTATE AMINO TRANSFERASE 26 U/L (14-36); BILIRUBIN,DIRECT 0.3 mg/dL (0.0-0.4); BILIRUBIN,TOTAL 0.4 mg/dL (0.2-1.3); BLOOD UREA NITROGEN 18 mg/dL (7-20); CALCIUM 9.8 mg/dL (8.4-10.2); CARBON DIOXIDE 24 mmol/L (22-30); CHLORIDE 106 mmol/L (98-107); CREATININE RESULT 1.44 mg/dL (0.52-1.25); GLUCOSE 91 mg/dL (75-110); POTASSIUM 4.4 mmol/L (3.6-5.0); SODIUM 140.6 mmol/L (137-145); TOTAL PROTEIN 8.3 g/dL (6.3-8.2)
[2017-02-23 22:40] LABS: APPEARANCE,URINE SLIGHTLY-CLOUDY; BILIRUBIN,URINE NEGATIVE (NEGATIVE); GLUCOSE, URINE NEGATIVE (NEGATIVE); KETONES,URINE NEGATIVE (NEGATIVE); LEUKOCYTE ESTERASE,URINE TRACE (NEGATIVE); NITRITE,URINE NEGATIVE (NEGATIVE); PROTEIN,URINE NEGATIVE (NEGATIVE); URINE SPECIFIC GRAVITY 1.024; UROBILINOGEN,URINE NEGATIVE mg/dL (<2.0)
[2017-02-23 23:43] VITALS: BP 161/95
== END 2017-02-23 23:59 | disposition home or self-care (01) ==
LOC: ER 19:34
DX: R42 Dizziness and giddiness (principal); R51 Headache; R43.9 Unspecified disturbances of smell and taste; Z79.899 Other long term (current) drug therapy
CPT/HCPCS: 99284; 36415; 85025; 80053; 81001; A9270; J3490

== ENCOUNTER → 2017-06-24 | Outpatient (CLI) | payer MEDICARE, MEDICAID ==
--- NOTE | 2017-06-27 09:03 | RADIOLOGY REPORT (SQ) ---
EXAM DESCRIPTION: MRI LUMBAR SPINE COMBO COMPLETED DATE/TIME: 06/24/2017 6:13 pm REASON FOR STUDY: SCIATICA LEFT SIDE M54.32 SCIATICA, LEFT SIDE COMPARISON: MRI lumbar spine 03/06/2012, 02/10/2016, 02/27/2016 TECHNIQUE: Sagittal and Axial imaging includes T1, T1 post gadolinium, T2, STIR and gradient echo se quences. Coronal T2/HASTE imaging. CONTRAST TYPE AND DOSE: 15 mL Prohance. RENAL FUNCTION: Estimated GFR 57 LIMITATIONS: Mild metallic artifact from lower lumbar fusion FINDINGS: VISUALIZED UPPER ABDOMEN: Limited evaluation. No acute or suspicious findings suggested. SEGMENTATION: No transitional anatomy. The lowest well-developed disc space is labeled L5-S1. ALIGNMENT: Anatomic. VERTEBRAE: Intact. No fractures. BONE MARROW: Normal. No marrow replacement or reactive changes. DISC SIGNAL: Normal. No significant abnormal signal or loss of height. POSTERIOR ELEMENTS: Old left micro laminectomy at L5 HARDWARE: Anterior and posterior fusion hardware L4 through S1 CORD AND CONUS: Normal in size and signal intensity. Conus at the L1-2 level. SOFT TISSUES: No aortic aneurysm seen. No bulky retroperitoneal adenopathy or mass. No paraspinal mas s or fluid. T11-12: Mild bilateral facet hypertrophy. No significant central or foraminal encroachment T12-L1: Mild bilateral facet hypertrophy. No significant central or foraminal encroachment L1-L2: Moderate bilateral facet hypertrophy. No posterior disc bulging. No significant central or f oraminal encroachment. L2-L3: Moderate bilateral facet hypertrophy. No posterior disc bulging. No significant central or f oraminal encroachment. L3-L4: Moderate bilateral facet hypertrophy. No posterior disc bulging. No significant central or f oraminal encroachment. L4-L5: Post anterior and posterior fusion. There is an ossified or calcified central annular tear an d bone spur. Mild bilateral facet hypertrophy. No central stenosis. Mild right foraminal narrowing without exiting L4 nerve root impingement or abnormal nerve root enhancement. On the left side, the re is mild left foraminal narrowing without definite exiting left L4 nerve root impingement or abnorm al nerve root enhancement. L5-S1: Post anterior and posterior fusion. Old calcified/ossified central annular tear and small grayson tral disc protrusion. Moderate bilateral facet hypertrophy. No central stenosis. Although there is moderate right foraminal narrowing, there is no definite right exiting L5 nerve root impingement or abnormal enhancement. On the left side, there is moderate foraminal narrowing without definite exiti ng left L5 nerve root impingement or abnormal enhancement SACRUM: Visualized upper sacrum intact. ENHANCEMENT: No abnormal conus or nerve root enhancement. OTHER: No other significant findings. IMPRESSION: Post fusion at L4-5 and L5-S1 without significant central canal stenosis. No gross MR e vidence of exiting nerve root impingement. TECHNICAL DOCUMENTATION: JOB ID: [id number] [employer]- All Rights Reserved
== END ==
LOC: RAD 16:12
PROVIDERS: ATTEND Orthopaedic Surgery
DX: M54.32 Sciatica, left side (principal)
CPT/HCPCS: 72158; A9576; 82565

== ENCOUNTER → 2017-06-24 | Outpatient (CLI) | payer MEDICARE, MEDICAID | LOC: OD 16:43 | PROVIDERS: ATTEND Orthopaedic Surgery | DX: M54.32 Sciatica, left side (principal) ==

== ENCOUNTER → 2017-08-05 | Outpatient (CLI) | payer MEDICARE, MEDICAID ==
[2017-08-05 11:34] LABS: TRIGLYCERIDES 251 mg/dL (<150)
[2017-08-05 11:45] LABS: DIRECT LDL 236 mg/dL (<100)
[2017-08-05 11:53] LABS: CHOLESTEROL 338.13 mg/dL (0-200); VLDL CHOLESTEROL 50.2 mg/dL (10-31)
== END ==
LOC: OD 10:15
PROVIDERS: ATTEND Internal Medicine Cardiovascular Disease
DX: E78.5 Hyperlipidemia, unspecified (principal)
CPT/HCPCS: 36415; 80061

== ENCOUNTER → 2017-09-22 | Outpatient (CLI) | payer MEDICARE, MEDICAID ==
[2017-09-22 16:48] LABS: ALANINE AMINOTRANSFERASE 52 U/L (9-52); ALBUMIN 4.5 g/dL (3.5-5.0); ALKALINE PHOSPHATASE 59 U/L (38-126); ANION GAP 10 (5-19); ASPARTATE AMINO TRANSFERASE 43 U/L (14-36); BILIRUBIN,DIRECT 0.4 mg/dL (0.0-0.4); BILIRUBIN,TOTAL 0.4 mg/dL (0.2-1.3); BLOOD UREA NITROGEN 19 mg/dL (7-20); CALCIUM 10.6 mg/dL (8.4-10.2); CARBON DIOXIDE 28 mmol/L (22-30); CHLORIDE 101 mmol/L (98-107); GLUCOSE 95 mg/dL (75-110); POTASSIUM 4.5 mmol/L (3.6-5.0); SODIUM 138.8 mmol/L (137-145); TOTAL PROTEIN 7.7 g/dL (6.3-8.2)
== END ==
LOC: OD 15:25
PROVIDERS: ATTEND Physician Assistant Medical
DX: R06.02 Shortness of breath (principal); R53.83 Other fatigue
CPT/HCPCS: 36415; 80053; 83880; 84443

== ENCOUNTER → 2017-10-11 | Outpatient (CLI) | payer MEDICARE, MEDICAID ==
[2017-10-11 13:20] LABS: HEMATOCRIT 37.9 % (36.0-47.0); HEMOGLOBIN 12.6 g/dL (12.0-15.5); MEAN CORPUSCULAR HEMOGLOBIN 32.1 pg (27.0-33.4); MEAN CORPUSCULAR HGB CONC 33.3 g/dL (32.0-36.0); MEAN CORPUSCULAR VOLUME 96 fl (80-97); RED BLOOD COUNT 3.93 10^6/uL (3.72-5.28); RED CELL DISTRIBUTION WIDTH 16.3 % (11.5-14.0); WHITE BLOOD COUNT 5.9 10^3/uL (4.0-10.5)
[2017-10-11 13:41] LABS: ALANINE AMINOTRANSFERASE 42 U/L (9-52); ALBUMIN 4.1 g/dL (3.5-5.0); ALKALINE PHOSPHATASE 61 U/L (38-126); ANION GAP 7 (5-19); ASPARTATE AMINO TRANSFERASE 34 U/L (14-36); BILIRUBIN,DIRECT 0.3 mg/dL (0.0-0.4); BILIRUBIN,TOTAL 0.3 mg/dL (0.2-1.3); BLOOD UREA NITROGEN 16 mg/dL (7-20); CALCIUM 9.4 mg/dL (8.4-10.2); CARBON DIOXIDE 27 mmol/L (22-30); CHLORIDE 106 mmol/L (98-107); GLUCOSE 99 mg/dL (75-110); POTASSIUM 4.2 mmol/L (3.6-5.0); SODIUM 140.4 mmol/L (137-145); TOTAL PROTEIN 7.3 g/dL (6.3-8.2)
[2017-10-11 13:53] LABS: FREE T3 3.6 pg/mL (2.77-5.27); FREE T4 (FREE THYROXINE) 0.85 ng/dL (0.78-2.19)
[2017-10-11 14:07] LABS: THYROID STIMULATING HORMONE 1.01 uIU/mL (0.47-4.68)
[2017-10-11 14:17] LABS: PLATELET COUNT 145 10^3/uL (150-450)
== END ==
LOC: OD 12:32
PROVIDERS: ATTEND Physician Assistant Medical
DX: R06.02 Shortness of breath (principal); R53.83 Other fatigue; R60.0 Localized edema
CPT/HCPCS: 36415; 80053; 82024; 82533; 83880; 84439; 84443; 84481; 85027

== ENCOUNTER 2017-11-04 15:30 | Emergency (ER) | payer MEDICARE, MEDICAID ==
[2017-11-04] MEDS ORDERED: OXYCODONE-ACETAMINOPHEN 5-325 MG TABLET PO ONE (17:22)
--- NOTE | 2017-11-04 17:26 | ER Document Report ---
ED Medical Screen (RME) - General Chief Complaint: Seizure Stated Complaint: HEAD INJURY Time Seen by Provider: 11/04/17 17:09 Mode of Arrival: Wheelchair Information source: Patient Notes: 47-year-old female history of seizures presents with family with concerns of 3 seizures in the past 24 hours. Patient admits to right shoulder pain neck back pain and headache I have greeted and performed a rapid initial assessment of this patient. A comprehensive ED assessment and evaluation of the patient, analysis of test results and completion of the medical decision making process will be conducted by additional ED providers. PHYSICAL EXAMINATION: GENERAL: Well-appearing, well-nourished and in no acute distress. HEAD: Atraumatic, normocephalic. EYES: Pupils equal round extraocular movements intact, conjunctiva are normal. ENT: Nares patent NECK: Normal range of motion LUNGS: No respiratory distress Musculoskeletal: Normal range of motion NEUROLOGICAL: Normal speech, normal gait. PSYCH: Normal mood, normal affect. SKIN: Warm, Dry, normal turgor, no rashes or lesions noted. TRAVEL OUTSIDE OF THE [place] IN LAST 30 DAYS: No - Related Data Allergies/Adverse Reactions: aspirin [Aspirin] Allergy (Intermediate, Verified 02/23/17 19:56) rash strawberry [[place]] Allergy (Mild, Verified 02/23/17 19:56) Hives Past Medical History - Social History Chew tobacco use (# tins/day): No Family history: DM, Hypertension - Past Medical History Cardiac Medical History: Reports: Hx Hypertension Pulmonary Medical History: Reports: Hx Asthma Neurological Medical History: Reports: Hx Cerebrovascular Accident - mild 2009, Hx Seizures Endocrine Medical History: Reports: Hx Hypothyroidism Renal/ Medical History: Denies: Hx Peritoneal Dialysis Musculoskeltal Medical History: Reports Hx Arthritis, Reports Hx Musculoskeletal Deformity, Reports Hx Musculoskeletal Trauma Psychiatric Medical History: Reports: Hx Anxiety, Hx Depression Past Surgical History: Reports: Hx Orthopedic Surgery - back; March 15 2016. Denies: Hx Hysterectomy - Immunizations Immunizations up to date: No Hx Diphtheria, Pertussis, Tetanus Vaccination: No Physical Exam - Vital signs Vitals: Temp Pulse Resp BP Pulse Ox 98.6 F 74 18 128/80 H 95 11/04/17 16:00 11/04/17 16:00 11/04/17 16:00 11/04/17 16:00 11/04/17 16:00 Course - Vital Signs Vital signs: Temp Pulse Resp BP Pulse Ox 98.6 F 74 18 128/80 H 95 11/04/17 16:00 11/04/17 16:00 11/04/17 16:00 11/04/17 16:00 11/04/17 16:00
[2017-11-04 17:50] LABS: ABSOLUTE EOSINOPHILS # (AUTO) 0.1 10^3/uL (0.0-0.6); ABSOLUTE LYMPHOCYTES (AUTO) 1.4 10^3/uL (0.5-4.7); ABSOLUTE MONOCYTES (AUTO) 0.4 10^3/uL (0.1-1.4); BASOPHILS % (AUTO) 1.1 % (0-2); EOSINOPHILS % (AUTO) 3.1 % (0-6); HEMATOCRIT 37.8 % (36.0-47.0); HEMOGLOBIN 12.5 g/dL (12.0-15.5); LYMPHOCYTES % (AUTO) 35.6 % (13-45); MEAN CORPUSCULAR HEMOGLOBIN 32.1 pg (27.0-33.4); MEAN CORPUSCULAR VOLUME 97 fl (80-97); MONOCYTES % (AUTO) 9.1 % (3-13); PLATELET COUNT 204 10^3/uL (150-450); RED BLOOD COUNT 3.89 10^6/uL (3.72-5.28); RED CELL DISTRIBUTION WIDTH 15.9 % (11.5-14.0); SEGMENTED NEUTROPHILS % (AUTO) 51.1 % (42-78); TOTAL CELLS COUNTED % (AUTO) 100 %
[2017-11-04 18:07] LABS: ALANINE AMINOTRANSFERASE 55 U/L (9-52); ALBUMIN 4.1 g/dL (3.5-5.0); ALKALINE PHOSPHATASE 56 U/L (38-126); ANION GAP 8 (5-19); ASPARTATE AMINO TRANSFERASE 51 U/L (14-36); BILIRUBIN,DIRECT 0.1 mg/dL (0.0-0.4); BILIRUBIN,TOTAL 0.2 mg/dL (0.2-1.3); BLOOD UREA NITROGEN 15 mg/dL (7-20); CALCIUM 10.1 mg/dL (8.4-10.2); CARBON DIOXIDE 33 mmol/L (22-30); CHLORIDE 97 mmol/L (98-107); GLUCOSE 86 mg/dL (75-110); POTASSIUM 4.4 mmol/L (3.6-5.0); SODIUM 137.8 mmol/L (137-145); TOTAL PROTEIN 7.1 g/dL (6.3-8.2)
--- NOTE | 2017-11-04 18:11 | RADIOLOGY REPORT (SQ) ---
EXAM DESCRIPTION: CT HEAD WITHOUT COMPLETED DATE/TIME: 11/04/2017 5:57 pm REASON FOR STUDY: seizure COMPARISON: MR 12/27/2016 CT 03/16/2011 TECHNIQUE: Axial images acquired through the brain without intravenous contrast. Images reviewed wi th bone, brain and subdural windows. Additional sagittal and coronal reconstructions were generated. Images stored on PACS. All CT scanners at this facility use dose modulation, iterative reconstruction, and/or weight based d osing when appropriate to reduce radiation dose to as low as reasonably achievable (ALARA). [facility]: Dose Right [facility]: CareDose [facility]: Dose Right [facility]: Teradose 4D [facility]: [employer] RADIATION DOSE: CT Rad equipment meets quality standard of care and radiation dose reduction techniq ues were employed. CTDIvol: 53.2 mGy. DLP: 991 mGy-cm. mGy. LIMITATIONS: None. FINDINGS: VENTRICLES: Normal size and contour. CEREBRUM: No masses. No hemorrhage. No midline shift. No evidence for acute infarction. Normal gra y/white matter differentiation. No areas of low density in the white matter. CEREBELLUM: No masses. No hemorrhage. No alteration of density. No evidence for acute infarction. EXTRAAXIAL SPACES: No fluid collections. No masses. ORBITS AND GLOBE: No intra- or extraconal masses. Normal contour of globe without masses. CALVARIUM: No fracture. PARANASAL SINUSES: No fluid or mucosal thickening. SOFT TISSUES: No mass or hematoma. OTHER: No other significant finding. IMPRESSION: NORMAL BRAIN CT WITHOUT CONTRAST. EVIDENCE OF ACUTE STROKE: NO. COMMENT: Quality ID # [id number]: Final reports with documentation of one or more dose reduction techniques (e.g., Automated exposure control, adjustment of the mA and/or kV according to patient size, use of iterative reconstruction technique) TECHNICAL DOCUMENTATION: JOB ID: [id number] [employer]- All Rights Reserved Reading location - IP/workstation name: [email or web address]
--- NOTE | 2017-11-04 18:17 | RADIOLOGY REPORT (SQ) ---
EXAM DESCRIPTION: SHOULDER RIGHT 2 OR MORE VIEWS COMPLETED DATE/TIME: 11/04/2017 6:04 pm REASON FOR STUDY: shoulder pain COMPARISON: None. NUMBER OF VIEWS: Three views. TECHNIQUE: Internal rotation, external rotation, and Y view images acquired of the right shoulder. LIMITATIONS: None. FINDINGS: MINERALIZATION: Normal. BONES: No acute fracture or dislocation. No worrisome bone lesions. JOINTS: No dislocation. VISUALIZED LUNGS AND RIBS: No pneumothorax. No rib fracture. SOFT TISSUES: No radiopaque foreign body. OTHER: No other significant finding. IMPRESSION: NEGATIVE STUDY OF THE RIGHT SHOULDER. NO RADIOGRAPHIC EVIDENCE OF ACUTE INJURY. TECHNICAL DOCUMENTATION: JOB ID: [id number] [employer]- All Rights Reserved Reading location - IP/workstation name: [email or web address]
--- NOTE | 2017-11-04 18:39 | RADIOLOGY REPORT (SQ) ---
EXAM DESCRIPTION: L SPINE WHOLE COMPLETED DATE/TIME: 11/04/2017 6:22 pm REASON FOR STUDY: post seizure pain COMPARISON: 10/20/2016 NUMBER OF VIEWS: Five views including obliques. TECHNIQUE: AP, lateral, oblique, and sacral radiographic images acquired of the lumbar spine. LIMITATIONS: None. FINDINGS: MINERALIZATION: Normal. SEGMENTATION: Normal. No transitional anatomy. ALIGNMENT: Normal. VERTEBRAE: Maintained height. No fracture or worrisome bone lesion. DISCS: Surgical changes L4-S1 with disc implants and anterior and posterior hardware. POSTERIOR ELEMENTS: Pedicles and facets are intact. No pars defect or posterior arch defects. HARDWARE: None in the spine. PARASPINAL SOFT TISSUES: Normal. PELVIS: Intact as visualized. No fractures or worrisome bone lesions. SI joints intact. OTHER: No other significant finding. IMPRESSION: Surgical changes with no acute abnormality. TECHNICAL DOCUMENTATION: JOB ID: [id number] [employer]- All Rights Reserved Reading location - IP/workstation name: [email or web address]
--- NOTE | 2017-11-04 18:40 | RADIOLOGY REPORT (SQ) ---
EXAM DESCRIPTION: T SPINE AP/LAT COMPLETED DATE/TIME: 11/04/2017 6:22 pm REASON FOR STUDY: post seizure pain COMPARISON: 09/04/2015 NUMBER OF VIEWS: Two views. TECHNIQUE: AP and lateral radiographic images acquired of the thoracic spine. LIMITATIONS: None. FINDINGS: MINERALIZATION: Normal. ALIGNMENT: Normal. No scoliosis. VERTEBRAE: No fracture or bone lesion. Maintained height, normal segmentation. DISCS: Disc spaces are maintained. There are bridging osteophytes at multiple levels and smaller mar ginal osteophytes. HARDWARE: None in the spine. MEDIASTINUM AND SOFT TISSUES: Normal heart size and aortic contour. No soft tissue abnormality. VISUALIZED LUNG CURTIS: Clear. OTHER: No other significant finding. IMPRESSION: Thoracic spondylosis with no acute abnormality. TECHNICAL DOCUMENTATION: JOB ID: [id number] [employer]- All Rights Reserved Reading location - IP/workstation name: [email or web address]
[2017-11-04] MEDS ORDERED: LEVETIRACETAM 1000 MG/NACL-ISO 1,000 MG/100 ML RTUPB IV ONE (19:18)
--- NOTE | 2017-11-04 19:26 | ER Document Report ---
ED Seizure - General Chief Complaint: Seizure Stated Complaint: POSSIBLE SEIZURE Time Seen by Provider: 11/04/17 17:09 Mode of Arrival: Wheelchair Notes: History of present illness-47 years old female with a history of seizure disorder, hypertension CHF, presents today with 3 episodes of seizures. She has been taking her seizure medication according to her. To apparently last night point this morning. She fell off the bed and hurt her right shoulder during that time. It was witnessed seizure according to the mother. Mother noticed the grand mal type of seizure activity. She is very compliant with medication. Currently having right shoulder pain. No headache no focal weakness numbness tingling sensation. REVIEW OF SYSTEMS: CONSTITUTIONAL : Denies fever, chills, or sweats. Denies recent illness. EENT: Denies eye, ear, throat, or mouth pain or symptoms. Denies nasal or sinus congestion or discharge. Denies throat, tongue, or mouth swelling or difficulty swallowing. CARDIOVASCULAR: Denies chest pain. Denies palpitations or racing or irregular heart beat. Denies ankle edema. RESPIRATORY: Denies cough, cold, or chest congestion. Denies shortness of breath, difficulty breathing, or wheezing. GASTROINTESTINAL: Denies abdominal pain or distention. Denies nausea, vomiting , or diarrhea. Denies blood in vomitus, stools, or per rectum. Denies black, tarry stools. Denies constipation. GENITOURINARY: Denies difficulty urinating, painful urination, burning, frequency, blood in urine, or discharge. FEMALE GENITOURINARY: Denies vaginal bleeding, heavy or abnormal periods, irregular periods. Denies vaginal discharge or odor. MUSCULOSKELETAL: Denies back or neck pain or stiffness. Denies joint pain or swelling. SKIN: Denies rash, lesions or sores. HEMATOLOGIC : Denies easy bruising or bleeding. LYMPHATIC: Denies swollen, enlarged glands. NEUROLOGICAL: Denies confusion or altered mental status. Denies passing out or loss of consciousness. Denies dizziness or lightheadedness. Denies headache. Denies weakness or paralysis or loss of use of either side. Denies problems with gait or speech. Denies sensory loss, numbness, or tingling. Denies seizures. PSYCHIATRIC: Denies anxiety or stress. Denies depression, suicidal ideation, or homicidal ideation. ALL OTHER SYSTEMS REVIEWED AND NEGATIVE. PHYSICAL EXAMINATION: GENERAL: Well-appearing, well-nourished and in no acute distress. Morbidly obese HEAD: Atraumatic, normocephalic. EYES: Pupils equal round and reactive to light, extraocular movements intact, conjunctiva are normal. ENT: Nares patent, oropharynx clear without exudates. Moist mucous membranes. NECK: Normal range of motion, supple without lymphadenopathy LUNGS: Breath sounds clear to auscultation bilaterally and equal. No wheezes rales or rhonchi. HEART: Regular rate and rhythm without murmurs ABDOMEN: Soft, nontender, nondistended abdomen. No guarding, no rebound. No masses appreciated. Female : deferred Musculoskeletal: Normal range of motion, no pitting or edema. No cyanosis. NEUROLOGICAL: Cranial nerves grossly intact. Normal speech, normal gait. Normal sensory, motor exams PSYCH: Normal mood, normal affect. SKIN: Warm, Dry, normal turgor, no rashes or lesions noted. Dictation was performed using [employer] voice recognition software - Related Data Allergies/Adverse Reactions: aspirin [Aspirin] Allergy (Intermediate, Verified 02/23/17 19:56) rash strawberry [[place]] Allergy (Mild, Verified 02/23/17 19:56) Hives Past Medical History - General Information source: Patient - Social History Smoking Status: Unknown if Ever Smoked Chew tobacco use (# tins/day): No Family History: Reviewed & Not Pertinent, Arthritis, DM, Hyperlipidemia. denies : CAD, COPD, CVA, Hypertension, Malignancy, Thyroid Disfunction Patient has suicidal ideation: No Patient has homicidal ideation: No - Past Medical History Cardiac Medical History: Reports: Hx Hypertension Pulmonary Medical History: Reports: Hx Asthma Neurological Medical History: Reports: Hx Cerebrovascular Accident - mild 2009, Hx Seizures Endocrine Medical History: Reports: Hx Hypothyroidism Renal/ Medical History: Denies: Hx Peritoneal Dialysis Musculoskeltal Medical History: Reports Hx Arthritis, Reports Hx Musculoskeletal Deformity, Reports Hx Musculoskeletal Trauma Psychiatric Medical History: Reports: Hx Anxiety, Hx Depression Past Surgical History: Reports: Hx Orthopedic Surgery - back; March 15 2016. Denies: Hx Hysterectomy - Immunizations Immunizations up to date: No Hx Diphtheria, Pertussis, Tetanus Vaccination: No Review of Systems - Review of Systems Notes: As per history of complain Physical Exam - Vital signs Vitals: Temp Pulse Resp BP Pulse Ox 98.6 F 74 18 128/80 H 95 11/04/17 16:00 11/04/17 16:00 11/04/17 16:00 11/04/17 16:00 11/04/17 16:00 Course - Re-evaluation Re-evalutation: 11/05/17 00:15 Give was given Keppra IV 11/05/17 00:15 No further seizure activity noted - Vital Signs Vital signs: Temp Pulse Resp BP Pulse Ox 98.7 F 70 14 119/64 97 11/04/17 21:13 11/04/17 21:13 11/04/17 21:13 11/04/17 21:13 11/04/17 21:13 - Laboratory Result Diagrams: 11/04/17 17:34 11/04/17 17:34 Laboratory results interpreted by me: 11/04/17 11/04/17 17:34 17:34 RDW 15.9 H Chloride 97 L Carbon Dioxide 33 H Creatinine 1.28 H Est GFR ( Amer) 54 L Est GFR (Non-Af Amer) 45 L AST 51 H ALT 55 H - Diagnostic Test Radiology reviewed: Reports reviewed - CT of the head reported by radiologist as normal 2. X-ray of the thoracolumbar region reported by radiologist as no fractures 3. X-ray of the elbow reported by radiologist as no fracture Discharge - Discharge Clinical Impression: Seizure disorder Condition: Fair Disposition: HOME, SELF-CARE Instructions: Seizure, Known Epileptic ([facility]) Prescriptions: Levetiracetam [Keppra 500 mg Tablet] 1,000 mg PO Q12 #120 tablet
[2017-11-05 00:55] VITALS: BP 115/70
== END 2017-11-05 01:08 | disposition home or self-care (01) ==
LOC: ER 15:30
DX: G40.909 Epilepsy, unspecified, not intractable, without status epilepticus (principal); I10 Essential (primary) hypertension; Z79.899 Other long term (current) drug therapy; J45.909 Unspecified asthma, uncomplicated
CPT/HCPCS: 99285; 96374; 36415; 83735; 85025; 80053; 72110; 73030; 72070; 70450; J1953

== ENCOUNTER 2017-11-08 15:41 | Emergency (ER) | payer MEDICARE, MEDICAID ==
--- NOTE | 2017-11-08 16:12 | ER Document Report ---
ED Seizure - General Stated Complaint: SEIZURE Time Seen by Provider: 11/08/17 15:44 Mode of Arrival: Medic Information source: Patient, [facility] Records Notes: 47-year-old female to emergency department chief complaint of seizure. Patient was at the sleep lab getting a sleep study when she had a seizure. On multiple medications. Has not stopped any of her medications for the sleep study. States that she does have a previous history of seizures since the age of 14. Followed by neurologist. On medications for his seizures. No recent changes in medication. No fever, chills, sweats. Patient does state she has a headache at this time but denies any other symptoms. States that she is a little sleepy. Not fall and did not have any other injuries. [place] like she was about to have a seizure and so they advised her to lay down on the floor which she did. Had a witnessed seizure at that time. - Related Data Allergies/Adverse Reactions: aspirin [Aspirin] Allergy (Intermediate, Verified 02/23/17 19:56) rash strawberry [[place]] Allergy (Mild, Verified 02/23/17 19:56) Hives Past Medical History - General Information source: Patient, Emergency Med Personnel, [facility] Records - Social History Smoking Status: Never Smoker Frequency of alcohol use: None Drug Abuse: None Lives with: Family Family History: Reviewed & Not Pertinent, Arthritis, DM, Hyperlipidemia. denies : CAD, COPD, CVA, Hypertension, Malignancy, Thyroid Disfunction - Past Medical History Cardiac Medical History: Reports: Hx Hypertension Pulmonary Medical History: Reports: Hx Asthma Neurological Medical History: Reports: Hx Cerebrovascular Accident - mild 2009, Hx Seizures Endocrine Medical History: Reports: Hx Hypothyroidism Renal/ Medical History: Denies: Hx Peritoneal Dialysis Musculoskeltal Medical History: Reports Hx Arthritis, Reports Hx Musculoskeletal Deformity, Reports Hx Musculoskeletal Trauma Psychiatric Medical History: Reports: Hx Anxiety, Hx Depression Past Surgical History: Reports: Hx Orthopedic Surgery - back; March 15 2016. Denies: Hx Hysterectomy - Immunizations Immunizations up to date: No Hx Diphtheria, Pertussis, Tetanus Vaccination: No Review of Systems - Review of Systems Constitutional: No symptoms reported EENT: No symptoms reported Cardiovascular: No symptoms reported Respiratory: No symptoms reported Gastrointestinal: No symptoms reported Genitourinary: No symptoms reported Female Genitourinary: No symptoms reported Musculoskeletal: No symptoms reported Skin: No symptoms reported Hematologic/Lymphatic: No symptoms reported Neurological/Psychological: Seizure, Headaches. denies: Confusion, Weakness, Speech impairment, Numbness Physical Exam - Vital signs Vitals: Resp BP Pulse Ox 13 131/91 H 99 11/08/17 15:52 11/08/17 15:52 11/08/17 15:52 Interpretation: Hypertensive - General General appearance: Appears well, Alert - HEENT Head: Normocephalic, Atraumatic Eyes: Normal Pupils: PERRL - Respiratory Respiratory status: No respiratory distress Chest status: Nontender Breath sounds: Normal Chest palpation: Normal - Cardiovascular Rhythm: Regular Heart sounds: Normal auscultation Murmur: No - Abdominal Inspection: Normal Distension: No distension Bowel sounds: Normal Tenderness: Nontender Organomegaly: No organomegaly - Back Back: Normal, Nontender - Extremities General upper extremity: Normal inspection, Nontender, Normal color, Normal ROM , Normal temperature General lower extremity: Normal inspection, Nontender, Normal color, Normal ROM , Normal temperature. No: Teri's sign - Neurological Neuro grossly intact: Yes Cognition: Normal Orientation: AAOx4 Nely Coma Scale Eye Opening: Spontaneous [place] Coma Scale Verbal: Oriented N[place] Coma Scale Motor: Obeys Commands [place] Coma Scale Total: 15 Speech: Normal Motor strength normal: LUE, RUE, LLE, RLE Sensory: Normal - Psychological Associated symptoms: Normal affect, Normal mood - Skin Skin Temperature: Warm Skin Moisture: Dry Skin Color: Normal Course - Re-evaluation Re-evalutation: 11/08/17 19:15 Laboratory 11/08/17 11/08/17 11/08/17 16:35 16:35 16:35 WBC 4.8 RBC 3.92 Hgb 12.4 Hct 38.0 MCV 97 MCH 31.6 MCHC 32.6 RDW 15.9 H Plt Count 193 Seg Neutrophils % 56.7 Lymphocytes % 31.6 Monocytes % 7.6 Eosinophils % 3.1 Basophils % 1.0 Absolute Neutrophils 2.7 Absolute Lymphocytes 1.5 Absolute Monocytes 0.4 Absolute Eosinophils 0.1 Absolute Basophils 0.0 Sodium 137.5 Potassium 4.6 Chloride 98 Carbon Dioxide 34 H Anion Gap 6 BUN 18 Creatinine 1.32 H Est GFR ( Amer) 52 L Est GFR (Non-Af Amer) 43 L Glucose 98 Calcium 9.9 Total Bilirubin 0.2 Direct Bilirubin 0.1 Neonat Total Bilirubin Not Reportable Neonat Direct Bilirubin Not Reportable Neonat Indirect Bili Not Reportable AST 37 H ALT 42 Alkaline Phosphatase 52 Total Protein 6.9 Albumin 4.1 Serum HCG, Qual NEGATIVE Urine Color Urine Appearance Urine pH Ur Specific [place] Urine Protein Urine Glucose (UA) Urine Ketones Urine Blood Urine Nitrite Urine Bilirubin Urine Urobilinogen Ur Leukocyte Esterase Urine WBC (Auto) Squamous Epi Cells Auto Urine Mucus (Auto) Urine Ascorbic Acid 11/08/17 17:15 WBC RBC Hgb Hct MCV MCH MCHC RDW Plt Count Seg Neutrophils % Lymphocytes % Monocytes % Eosinophils % Basophils % Absolute Neutrophils Absolute Lymphocytes Absolute Monocytes Absolute Eosinophils Absolute Basophils Sodium Potassium Chloride Carbon Dioxide Anion Gap BUN Creatinine Est GFR ( Amer) Est GFR (Non-Af Amer) Glucose Calcium Total Bilirubin Direct Bilirubin Neonat Total Bilirubin Neonat Direct Bilirubin Neonat Indirect Bili AST ALT Alkaline Phosphatase Total Protein Albumin Serum HCG, Qual Urine Color YELLOW Urine Appearance CLEAR Urine pH 7.0 Ur Specific [place] 1.012 Urine Protein NEGATIVE Urine Glucose (UA) NEGATIVE Urine Ketones NEGATIVE Urine Blood NEGATIVE Urine Nitrite NEGATIVE Urine Bilirubin NEGATIVE Urine Urobilinogen NEGATIVE Ur Leukocyte Esterase NEGATIVE Urine WBC (Auto) 0 Squamous Epi Cells Auto <1 Urine Mucus (Auto) RARE Urine Ascorbic Acid NEGATIVE Head CT 11/08/17 17:59 IMPRESSION: NORMAL BRAIN CT WITHOUT CONTRAST. EVIDENCE OF ACUTE STROKE: NO. Patient with no acute laboratory abnormalities. CT head negative. Feeling better. Comfortable discharging shortly if she continues to have no further seizures. - Vital Signs Vital signs: Temp Pulse Resp BP Pulse Ox 97.9 F 76 10 L 110/67 98 11/08/17 16:25 11/08/17 16:25 11/08/17 19:01 11/08/17 19:00 11/08/17 19:01 - Laboratory Result Diagrams: 11/08/17 16:35 11/08/17 16:35 Laboratory results interpreted by me: 11/08/17 11/08/17 16:35 16:35 RDW 15.9 H Carbon Dioxide 34 H Creatinine 1.32 H Est GFR ( Amer) 52 L Est GFR (Non-Af Amer) 43 L AST 37 H Discharge - Discharge Clinical Impression: Seizures Condition: Good Disposition: HOME, SELF-CARE Instructions: Seizure, Known Epileptic ([facility])
[2017-11-08 16:54] LABS: ABSOLUTE EOSINOPHILS # (AUTO) 0.1 10^3/uL (0.0-0.6); ABSOLUTE LYMPHOCYTES (AUTO) 1.5 10^3/uL (0.5-4.7); ABSOLUTE MONOCYTES (AUTO) 0.4 10^3/uL (0.1-1.4); ABSOLUTE NEUT (AUTO) 2.7 10^3/uL (1.7-8.2); EOSINOPHILS % (AUTO) 3.1 % (0-6); HEMOGLOBIN 12.4 g/dL (12.0-15.5); LYMPHOCYTES % (AUTO) 31.6 % (13-45); MEAN CORPUSCULAR HEMOGLOBIN 31.6 pg (27.0-33.4); MEAN CORPUSCULAR HGB CONC 32.6 g/dL (32.0-36.0); MEAN CORPUSCULAR VOLUME 97 fl (80-97); MONOCYTES % (AUTO) 7.6 % (3-13); PLATELET COUNT 193 10^3/uL (150-450); RED BLOOD COUNT 3.92 10^6/uL (3.72-5.28); RED CELL DISTRIBUTION WIDTH 15.9 % (11.5-14.0); SEGMENTED NEUTROPHILS % (AUTO) 56.7 % (42-78); TOTAL CELLS COUNTED % (AUTO) 100 %; WHITE BLOOD COUNT 4.8 10^3/uL (4.0-10.5)
[2017-11-08 17:19] LABS: ALANINE AMINOTRANSFERASE 42 U/L (9-52); ALBUMIN 4.1 g/dL (3.5-5.0); ALKALINE PHOSPHATASE 52 U/L (38-126); ANION GAP 6 (5-19); ASPARTATE AMINO TRANSFERASE 37 U/L (14-36); BILIRUBIN,DIRECT 0.1 mg/dL (0.0-0.4); BILIRUBIN,TOTAL 0.2 mg/dL (0.2-1.3); BLOOD UREA NITROGEN 18 mg/dL (7-20); CALCIUM 9.9 mg/dL (8.4-10.2); CARBON DIOXIDE 34 mmol/L (22-30); CHLORIDE 98 mmol/L (98-107); GLUCOSE 98 mg/dL (75-110); POTASSIUM 4.6 mmol/L (3.6-5.0); SODIUM 137.5 mmol/L (137-145); TOTAL PROTEIN 6.9 g/dL (6.3-8.2)
[2017-11-08 17:36] LABS: APPEARANCE,URINE CLEAR; BILIRUBIN,URINE NEGATIVE (NEGATIVE); COLOR,URINE YELLOW; GLUCOSE, URINE NEGATIVE (NEGATIVE); KETONES,URINE NEGATIVE (NEGATIVE); LEUKOCYTE ESTERASE,URINE NEGATIVE (NEGATIVE); NITRITE,URINE NEGATIVE (NEGATIVE); PROTEIN,URINE NEGATIVE (NEGATIVE); URINE SPECIFIC GRAVITY 1.012; UROBILINOGEN,URINE NEGATIVE mg/dL (<2.0)
--- NOTE | 2017-11-08 18:32 | RADIOLOGY REPORT (SQ) ---
EXAM DESCRIPTION: CT HEAD WITHOUT COMPLETED DATE/TIME: 11/08/2017 6:22 pm REASON FOR STUDY: Headache and seizure COMPARISON: 11/04/2017 TECHNIQUE: Axial images acquired through the brain without intravenous contrast. Images reviewed wi th bone, brain and subdural windows. Additional sagittal and coronal reconstructions were generated. Images stored on PACS. All CT scanners at this facility use dose modulation, iterative reconstruction, and/or weight based d osing when appropriate to reduce radiation dose to as low as reasonably achievable (ALARA). [facility]: Dose Right [facility]: CareDose [facility]: Dose Right [facility]: Teradose 4D [facility]: [employer] RADIATION DOSE: CT Rad equipment meets quality standard of care and radiation dose reduction techniq ues were employed. CTDIvol: 53.2 mGy. DLP: 1017 mGy-cm. mGy. LIMITATIONS: None. FINDINGS: VENTRICLES: Normal size and contour. CEREBRUM: No masses. No hemorrhage. No midline shift. No evidence for acute infarction. Normal gra y/white matter differentiation. No areas of low density in the white matter. CEREBELLUM: No masses. No hemorrhage. No alteration of density. No evidence for acute infarction. EXTRAAXIAL SPACES: No fluid collections. No masses. ORBITS AND GLOBE: No intra- or extraconal masses. Normal contour of globe without masses. CALVARIUM: No fracture. PARANASAL SINUSES: No fluid or mucosal thickening. SOFT TISSUES: No mass or hematoma. OTHER: No other significant finding. IMPRESSION: NORMAL BRAIN CT WITHOUT CONTRAST. EVIDENCE OF ACUTE STROKE: NO. COMMENT: Quality ID # [id number]: Final reports with documentation of one or more dose reduction techniques (e.g., Automated exposure control, adjustment of the mA and/or kV according to patient size, use of iterative reconstruction technique) TECHNICAL DOCUMENTATION: JOB ID: [id number] [facility]- All Rights Reserved Reading location - IP/workstation name: [email or web address]
[2017-11-08] MEDS ORDERED: KETOROLAC TROMETHAMINE INJ/PF 30 MG/1 ML SDV IV ONE (19:14)
[2017-11-08] MEDS ORDERED: LORAZEPAM 1 MG TABLET PO ONE (19:14)
[2017-11-08 20:16] VITALS: BP 126/84
--- NOTE | 2017-11-08 22:34 | EKG REPORT ---
SEVERITY:- BORDERLINE ECG - SINUS RHYTHM BORDERLINE T ABNORMALITIES, DIFFUSE LEADS BORDERLINE PROLONGED QT INTERVAL : Confirmed by: Pascual Balderas 08-Nov-2017 22:34:12
== END 2017-11-08 20:17 | disposition home or self-care (01) ==
LOC: ER 15:41
DX: R56.9 Unspecified convulsions (principal); Z79.899 Other long term (current) drug therapy; I10 Essential (primary) hypertension; J45.909 Unspecified asthma, uncomplicated
CPT/HCPCS: 93005; 99285; 96374; 36415; 84703; 85025; 80053; 81001; 70450; 93010; J1885; A9270

== ENCOUNTER 2017-12-01 17:19 | Emergency (ER) | payer MEDICARE, MEDICAID ==
[2017-12-01] MEDS ORDERED: HYDROMORPHONE HCL INJ/PF 2 MG/ML AMPULE IM ONE (17:29)
--- NOTE | 2017-12-01 18:48 | RADIOLOGY REPORT (SQ) ---
EXAM DESCRIPTION: ANKLE LEFT COMPLETE COMPLETED DATE/TIME: 12/01/2017 6:16 pm REASON FOR STUDY: ER HASSAN 3 FALL COMPARISON: None. NUMBER OF VIEWS: Three views. TECHNIQUE: AP, lateral, and oblique radiographic images acquired of the left ankle. LIMITATIONS: None. FINDINGS: MINERALIZATION: Normal. BONES: No acute fracture or dislocation. No worrisome bone lesions. JOINTS: No effusions. SOFT TISSUES: No soft tissue swelling. No foreign body. OTHER: No other significant finding. IMPRESSION: NEGATIVE STUDY OF THE LEFT ANKLE. NO RADIOGRAPHIC EVIDENCE OF ACUTE INJURY. TECHNICAL DOCUMENTATION: JOB ID: [id number] [employer] All Rights Reserved Reading location - IP/workstation name: [email or web address]
--- NOTE | 2017-12-01 18:56 | RADIOLOGY REPORT (SQ) ---
EXAM DESCRIPTION: CT CERVICAL SPINE WITHOUT COMPLETED DATE/TIME: 12/01/2017 6:20 pm REASON FOR STUDY: fall COMPARISON: None. TECHNIQUE: Axial images acquired through the cervical spine without intravenous contrast. Images re viewed with lung, soft tissue and bone windows. Reconstructed coronal and sagittal MPR images review ed. Images stored on PACS. All CT scanners at this facility use dose modulation, iterative reconstruction, and/or weight based d osing when appropriate to reduce radiation dose to as low as reasonably achievable (ALARA). [facility]: Dose Right [facility]: CareDose [facility]: Dose Right [facility]: Teradose 4D [facility]: [employer] RADIATION DOSE: CT Rad equipment meets quality standard of care and radiation dose reduction techniq ues were employed. CTDIvol: 26.8 mGy. DLP: 576 mGy-cm. mGy. LIMITATIONS: None. FINDINGS: ALIGNMENT: Anatomic. MINERALIZATION: Normal. VERTEBRAL BODIES: No fractures or dislocation. DISCS: No significant disc disease. FACETS, LATERAL MASSES, POSTERIOR ELEMENTS: No fractures. No dislocation. No acute findings. HARDWARE: None in the spine. VISUALIZED RIBS: No fractures. LUNG APICES AND SOFT TISSUES: No significant or acute findings. OTHER: No other significant finding. IMPRESSION: NO ACUTE OR SIGNIFICANT FINDINGS IN THE CERVICAL SPINE. TECHNICAL DOCUMENTATION: JOB ID: [id number] Quality ID # [id number]: Final reports with documentation of one or more dose reduction techniques (e.g., Au tomated exposure control, adjustment of the mA and/or kV according to patient size, use of iterative reconstruction technique) 2010 [employer]- All Rights Reserved Reading location - IP/workstation name: [email or web address]
--- NOTE | 2017-12-01 18:59 | RADIOLOGY REPORT (SQ) ---
EXAM DESCRIPTION: CT THORACIC SPINE WITHOUT COMPLETED DATE/TIME: 12/01/2017 6:20 pm REASON FOR STUDY: fall COMPARISON: None. TECHNIQUE: Axial images acquired through the thoracic spine without intravenous contrast. Images re viewed with lung, soft tissue and bone windows. Reconstructed coronal and sagittal MPR images review ed. Images stored on PACS. All CT scanners at this facility use dose modulation, iterative reconstruction, and/or weight based d osing when appropriate to reduce radiation dose to as low as reasonably achievable (ALARA). [facility]: Dose Right [facility]: CareDose [facility]: Dose Right [facility]: Teradose 4D [facility]: [employer] RADIATION DOSE: CT Rad equipment meets quality standard of care and radiation dose reduction techniq ues were employed. CTDIvol: 100.9 mGy. DLP: 3215 mGy-cm. mGy. LIMITATIONS: None. FINDINGS: VISUALIZED LUNGS: No acute opacities. No pneumothorax. SOFT TISSUES: No soft tissue swelling. No masses. VERTEBRAL BODIES: No fractures. No dislocation. No acute findings. DISCS: No significant disc space narrowing. ALIGNMENT: Normal. TRANSVERSE PROCESSES, POSTERIOR ELEMENTS: No fractures. No dislocation. No acute findings. HARDWARE: Neurostimulator electrodes. VISUALIZED RIBS: No fractures. OTHER: No other significant finding. IMPRESSION: NORMAL CT OF THE THORACIC SPINE. TECHNICAL DOCUMENTATION: JOB ID: [id number] Quality ID # [id number]: Final reports with documentation of one or more dose reduction techniques (e.g., Au tomated exposure control, adjustment of the mA and/or kV according to patient size, use of iterative reconstruction technique) 2010 [employer]- All Rights Reserved Reading location - IP/workstation name: [email or web address]
--- NOTE | 2017-12-01 19:18 | RADIOLOGY REPORT (SQ) ---
EXAM DESCRIPTION: CT LUMBAR SPINE WITHOUT COMPLETED DATE/TIME: 12/01/2017 6:20 pm REASON FOR STUDY: fall COMPARISON: Radiograph 11/04/2017 TECHNIQUE: Axial images acquired through the lumbar spine without intravenous contrast. Images revi ewed with lung, soft tissue and bone windows. Reconstructed coronal and sagittal MPR images reviewed . All images stored on PACS. All CT scanners at this facility use dose modulation, iterative reconstruction, and/or weight based d osing when appropriate to reduce radiation dose to as low as reasonably achievable (ALARA). [facility]: Dose Right [facility]: CareDose [facility]: Dose Right [facility]: Teradose 4D [facility]: [employer] RADIATION DOSE: mGy. LIMITATIONS: None. FINDINGS: SEGMENTATION: Normal. No transitional anatomy. ALIGNMENT: Normal. VERTEBRAL BODIES: No fractures. No dislocation. No acute findings. DISCS: Disc implants are present at L4-5 and L5-S1. Mild concentric disc bulging is present at L3-4. There is no central canal or foraminal stenosis. Evaluation L4-5 and L5-S1 is very limited because of artifact. PEDICLES, TRANSVERSE PROCESSES: No fractures. No dislocation. No acute findings. FACETS, POSTERIOR ELEMENTS: No fractures. No dislocation. No spinal stenosis. HARDWARE: Anterior and posterior hardware is present from L4-S1. VISUALIZED RIBS: No fractures. SOFT TISSUES: No significant or acute finding in adjacent soft tissues. OTHER: No other significant finding. IMPRESSION: Surgical changes. No acute findings are seen in the lumbar spine. TECHNICAL DOCUMENTATION: JOB ID: [id number] Quality ID # [id number]: Final reports with documentation of one or more dose reduction techniques (e.g., Au tomated exposure control, adjustment of the mA and/or kV according to patient size, use of iterative reconstruction technique) 2010 [employer]- All Rights Reserved Reading location - IP/workstation name: [email or web address]
[2017-12-01] MEDS ORDERED: ONDANSETRON 4 MG TAB.RAPDIS PO ONE (20:12)
[2017-12-01] MEDS ORDERED: DIAZEPAM 2 MG TABLET PO ONE (20:28)
[2017-12-01] MEDS ORDERED: HYDROMORPHONE HCL INJ/PF 2 MG/ML AMPULE IV ONE (22:42)
[2017-12-01 23:35] LABS: HEMATOCRIT 34.7 % (36.0-47.0); HEMOGLOBIN 11.8 g/dL (12.0-15.5); MEAN CORPUSCULAR HEMOGLOBIN 32.2 pg (27.0-33.4); MEAN CORPUSCULAR HGB CONC 33.9 g/dL (32.0-36.0); MEAN CORPUSCULAR VOLUME 95 fl (80-97); PLATELET COUNT 337 10^3/uL (150-450); RED BLOOD COUNT 3.66 10^6/uL (3.72-5.28); RED CELL DISTRIBUTION WIDTH 16.1 % (11.5-14.0); WHITE BLOOD COUNT 5.3 10^3/uL (4.0-10.5)
[2017-12-02 00:02] LABS: ABSOLUTE LYMPHOCYTES# (MANUAL) 2.2 10^3/uL (0.5-4.7); ABSOLUTE MONOCYTES # (MANUAL) 0.4 10^3/uL (0.1-1.4); ABSOLUTE NEUTROPHILS# (MANUAL) 2.6 10^3/uL (1.7-8.2); BAND NEUTROPHILS % (MANUAL) 1 % (3-5); BASOPHILS % (MANUAL) 0 % (0-2); EOSINOPHILS % (MANUAL) 2 % (0-6); LYMPHOCYTES % (MANUAL) 41 % (13-45); MONOCYTES % (MANUAL) 8 % (3-13); SEGMENTED NEUTROPHILS % (MAN) 48 % (42-78); TOTAL CELLS COUNTED 100
--- NOTE | 2017-12-02 00:02 | ER Document Report ---
ED Fall - General Chief Complaint: Fall Stated Complaint: FALL,BACK PAIN Time Seen by Provider: 12/01/17 17:30 Mode of Arrival: Stretcher Notes: Patient is a 47-year-old female who comes in complaining of back pain after a fall. Received signout on this patient from Dr. Hopson. There is no chart available to addend. Patient apparently fell today. States that she had a neurostimulator placed in [place] on 11/[address] Enriquez. States that since she had a neurostimulator placed she has been having paresthesias and also feeling of weakness in the leg. She was instructed to set it off. Patient states that today it felt like her right leg went weak and gave out and she fell. She is complaining of back pain and left ankle pain and swelling. States that her feet are numb at the bottom. States that she has called her doctor's office but has not been seen in follow-up yet. Denies any fever. Denies incontinence of bowel or bladder. TRAVEL OUTSIDE OF THE [place] IN LAST 30 DAYS: No - HPI Occurred: Just prior to arrival Where: Home Quality of pain: Throbbing Severity: Severe - Related data Allergies/Adverse Reactions: aspirin [Aspirin] Allergy (Intermediate, Verified 02/23/17 19:56) rash strawberry [[place]] Allergy (Mild, Verified 02/23/17 19:56) Hives Past Medical History - General Information source: Patient - Social History Smoking Status: Unknown if Ever Smoked Family History: Reviewed & Not Pertinent, Arthritis, DM, Hyperlipidemia. denies : CAD, COPD, CVA, Hypertension, Malignancy, Thyroid Disfunction Patient has suicidal ideation: No Patient has homicidal ideation: No - Past Medical History Cardiac Medical History: Reports: Hx Hypertension Pulmonary Medical History: Reports: Hx Asthma Neurological Medical History: Reports: Hx Cerebrovascular Accident - mild 2009, Hx Seizures Endocrine Medical History: Reports: Hx Hypothyroidism Renal/ Medical History: Denies: Hx Peritoneal Dialysis Musculoskeltal Medical History: Reports Hx Arthritis, Reports Hx Musculoskeletal Deformity, Reports Hx Musculoskeletal Trauma Psychiatric Medical History: Reports: Hx Anxiety, Hx Depression Past Surgical History: Reports: Hx Orthopedic Surgery - back; March 15 2016. Denies: Hx Hysterectomy - Immunizations Immunizations up to date: No Hx Diphtheria, Pertussis, Tetanus Vaccination: No Review of Systems - Review of Systems Constitutional: No symptoms reported EENT: No symptoms reported Cardiovascular: No symptoms reported Respiratory: No symptoms reported Gastrointestinal: No symptoms reported Genitourinary: No symptoms reported Female Genitourinary: No symptoms reported Musculoskeletal: See HPI Skin: No symptoms reported Hematologic/Lymphatic: No symptoms reported Neurological/Psychological: No symptoms reported Physical Exam - Vital signs Vitals: Temp Pulse Resp BP Pulse Ox 98 F 72 16 137/77 H 100 12/01/17 17:33 12/01/17 17:33 12/01/17 17:33 12/01/17 17:33 12/01/17 17:33 Interpretation: Normal - General General appearance: Appears well, Alert - HEENT Head: Normocephalic, Atraumatic Eyes: Normal Pupils: PERRL - Respiratory Respiratory status: No respiratory distress Chest status: Nontender Breath sounds: Normal Chest palpation: Normal - Cardiovascular Rhythm: Regular Heart sounds: Normal auscultation Murmur: No - Abdominal Inspection: Normal Distension: No distension Bowel sounds: Normal Tenderness: Nontender Organomegaly: No organomegaly - Back Back: Normal, Tender - Diffuse tenderness to palpation - Extremities General upper extremity: Normal inspection, Nontender, Normal color, Normal ROM , Normal temperature General lower extremity: Normal inspection, Tender, Normal color, Normal temperature. No: Teri's sign Shoulder: Normal Arm: Normal Elbow: Normal Forearm: Normal Wrist: Normal Hand: Normal Calf: Normal Ankle: Tender - L Foot: Other - Neurological Neuro grossly intact: Yes Cognition: Normal Orientation: AAOx4 Mcintosh Coma Scale Eye Opening: Spontaneous Nely Coma Scale Verbal: Oriented Mcintosh Coma Scale Motor: Obeys Commands Nely Coma Scale Total: 15 Speech: Normal Motor strength normal: LUE, RUE, LLE - Patient states pain with movement, RLE - Patient states pain with movement Sensory: Altered light touch - b/l plantar aspect of feet - Psychological Associated symptoms: Normal affect, Normal mood - Skin Skin Temperature: Warm Skin Moisture: Dry Skin Color: Normal Course - Re-evaluation Re-evalutation: 12/01/17 23:00 Patient is a 47-year-old female who had a fall today and a recent neurostimulator implanted. Initially was going to do MRI but technical support technician is uncomfortable because the patient is concerned that the stimulator has moved. Patient was discussed with Dr. Silverman at [facility]. Patient states that her legs feel weak and she has had paresthesias. No bowel or bladder incontinence. Patient has had these symptoms since the neurostimulator was placed on November 21. He will accept her to the emergency department at [facility] for further evaluation. Patient is requesting transfer and agreeable to this plan. 12/02/17 00:01 Transport is here for patient. Stable for transport. - Vital Signs Vital signs: Temp Pulse Resp BP Pulse Ox 99.0 F 68 20 126/69 H 97 12/01/17 23:53 12/01/17 23:53 12/01/17 23:53 12/01/17 23:53 12/01/17 23:53 - Laboratory Result Diagrams: 12/01/17 23:25 12/01/17 21:00 Laboratory results interpreted by me: 12/01/17 23:25 RBC 3.66 L Hgb 11.8 L Hct 34.7 L RDW 16.1 H Band Neutrophils % 1 L Critical Care Note - Critical Care Note Total time excluding time spent on procedures (mins): 35 - Evaluation and management of fall, back pain, multiple re-evaluations, coordination of transfer , counseling of patient and family Discharge - Discharge Clinical Impression: Back injury Qualifiers: Encounter type: initial encounter Qualified Code(s): S39.92XA - Unspecified injury of lower back, initial encounter Complication of implanted electronic neurostimulator of spinal cord Qualifiers: Encounter type: initial encounter Qualified Code(s): T85.9XXA - Unspecified complication of internal prosthetic device, implant and graft, initial encounter Condition: Stable Disposition: [facility] Referrals: DONNA SCHREIBER MD [Primary Care Provider] - Follow up as needed Scribe Attestation: 12/02/17 02:33 I personally performed the services described in the documentation, reviewed and edited the documentation which was dictated to the scribe in my presence, and it accurately records my words and actions.
[2017-12-02 00:03] VITALS: BP 126/69
[2017-12-02 00:05] LABS: ANISOCYTOSIS 1+; PLATELET COMMENT ADEQUATE; PLATELET LARGE PRESENT; POIKILOCYTOSIS SLIGHT; SCHISTOCYTES SLIGHT; TEAR DROP CELLS SLIGHT; TOXIC GRANULATION SLIGHT
== END 2017-12-02 00:10 | disposition short-term general hospital (02) ==
LOC: ER 17:19
DX: S39.92XA Unspecified injury of lower back, initial encounter (principal); T85.9XXA Unspecified complication of internal prosthetic device, implant and graft, initial encounter; M54.9 Dorsalgia, unspecified; M25.572 Pain in left ankle and joints of left foot; M79.89 Other specified soft tissue disorders; M62.81 Muscle weakness (generalized); R20.0 Anesthesia of skin; W19.XXXA Unspecified fall, initial encounter; I10 Essential (primary) hypertension; J45.909 Unspecified asthma, uncomplicated
CPT/HCPCS: 99291; 96372; 96374; 36415; 84702; 85025; 73610; 72125; 72128; 72131; A9270 ×2; J1170; J3490; S0119

== ENCOUNTER 2017-12-31 20:31 | Emergency (ER) | payer MEDICARE, MEDICAID ==
--- NOTE | 2017-12-31 21:32 | ER Document Report ---
ED General - General Chief Complaint: Back Pain Stated Complaint: POSSIBLE SEIZURES Time Seen by Provider: 12/31/17 20:34 Mode of Arrival: Medic Information source: Patient Notes: Patient is a 47-year-old female patient who presents with chief complaint of seizure via EMS. Patient is a known epileptic. EMS reports the patient was alert and oriented on their arrival. Patient was not incontinent of urine. Patient is complaining of back pain which is chronic for her as well as low abdominal pain that she states has been present for 1 day. Patient denies any nausea, vomiting, fever or diarrhea. Patient denies any urinary frequency or dysuria. TRAVEL OUTSIDE OF THE [place] IN LAST 30 DAYS: No - Related Data Allergies/Adverse Reactions: aspirin [Aspirin] Allergy (Intermediate, Verified 02/23/17 19:56) rash strawberry [[place]] Allergy (Mild, Verified 02/23/17 19:56) Hives Past Medical History - General Information source: Patient - Social History Smoking Status: Current Every Day Smoker Cigarette use (# per day): No Chew tobacco use (# tins/day): No Smoking Education Provided: No Frequency of alcohol use: None Drug Abuse: None Family History: Reviewed & Not Pertinent, Arthritis, DM, Hyperlipidemia. denies : CAD, COPD, CVA, Hypertension, Malignancy, Thyroid Disfunction Patient has suicidal ideation: No Patient has homicidal ideation: No - Past Medical History Cardiac Medical History: Reports: Hx Hypertension Pulmonary Medical History: Reports: Hx Asthma Neurological Medical History: Reports: Hx Cerebrovascular Accident - mild 2009, Hx Seizures Endocrine Medical History: Reports: Hx Hypothyroidism Renal/ Medical History: Denies: Hx Peritoneal Dialysis Musculoskeltal Medical History: Reports Hx Arthritis, Reports Hx Musculoskeletal Deformity, Reports Hx Musculoskeletal Trauma Psychiatric Medical History: Reports: Hx Anxiety, Hx Depression Past Surgical History: Reports: Hx Orthopedic Surgery - back; March 15 2016. Denies: Hx Hysterectomy - Immunizations Immunizations up to date: No Hx Diphtheria, Pertussis, Tetanus Vaccination: No Review of Systems - Review of Systems Constitutional: No symptoms reported EENT: No symptoms reported Cardiovascular: No symptoms reported Respiratory: No symptoms reported Gastrointestinal: See HPI Genitourinary: No symptoms reported Female Genitourinary: No symptoms reported Musculoskeletal: No symptoms reported Skin: No symptoms reported Hematologic/Lymphatic: No symptoms reported Neurological/Psychological: See HPI Physical Exam - Vital signs Vitals: Temp Pulse Resp BP Pulse Ox 98.2 F 74 16 127/70 H 100 12/31/17 20:44 12/31/17 20:44 12/31/17 20:44 12/31/17 20:44 12/31/17 20:44 - Notes Notes: PHYSICAL EXAMINATION: GENERAL: Well-appearing, well-nourished and in no acute distress. HEAD: Atraumatic, normocephalic. EYES: Pupils equal round and reactive to light, extraocular movements intact, conjunctiva are normal. ENT: Nares patent, oropharynx clear without exudates. Moist mucous membranes. NECK: Normal range of motion, supple without lymphadenopathy LUNGS: Breath sounds clear to auscultation bilaterally and equal. No wheezes rales or rhonchi. HEART: Regular rate and rhythm without murmurs ABDOMEN: Soft, nondistended with mild tenderness on palpation to low abdomen. Pain with palpation to RUQ that radiates to patients right thoracic back. No guarding, no rebound. No peritoneal signs. No masses appreciated. Female : deferred Musculoskeletal: Normal range of motion, no pitting or edema. No cyanosis. NEUROLOGICAL: Cranial nerves grossly intact. Normal speech. Normal sensory, motor exams PSYCH: Normal mood, normal affect. SKIN: Warm, Dry, normal turgor, no rashes or lesions noted. Course - Re-evaluation Re-evalutation: 47-year-old female, known epileptic who presents with complaint of seizure. Patient is completely alert and oriented on arrival. Patient and family member report that she is compliant with her antiseizure medications. Patient is also complaining of low abdominal pain as well as right upper quadrant pain that wraps around her side right under her rib cage and into her upper back 1 month since they removed her spinal stimulator for pain. Comprehensive metabolic panel and lipase are both unremarkable. A urine was sent down to the lab however it was apparently misplaced. Patient did not complain of any urinary symptoms. Patient was offered to send another sample down however patient states that she does not have any symptoms and she does not want to wait for a urinalysis. Patient reports that her all of her pain has resolved after administration of the muscle relaxer. Patient reports that she has an appointment already set up with [facility] for Tuesday for a women routine women's health appointment so she will follow-up with them if symptoms persist. - Vital Signs Vital signs: Temp Pulse Resp BP Pulse Ox 98.2 F 74 17 134/87 H 99 12/31/17 20:44 12/31/17 20:44 01/01/18 00:02 01/01/18 00:02 01/01/18 00:02 - Laboratory Result Diagrams: 12/31/17 21:51 Laboratory results interpreted by me: 12/31/17 21:51 Creatinine 1.28 H Est GFR ( Amer) 54 L Est GFR (Non-Af Amer) 45 L Glucose 114 H AST 68 H ALT 62 H Discharge - Discharge Clinical Impression: Seizure, epileptic Qualifiers: Epilepsy type: unspecified Intractability: not intractable Status epilepticus: without status epilepticus Qualified Code(s): G40.909 - Epilepsy, unspecified, not intractable, without status epilepticus Back pain Qualifiers: Back pain location: thoracic back pain Chronicity: unspecified Back pain laterality: right Qualified Code(s): M54.6 - Pain in thoracic spine Condition: Stable Disposition: HOME, SELF-CARE Additional Instructions: Seizure, Known Epileptic You have had a seizure. Seizures may "break through" in an epileptic due to stress of infection or injury, a change in blood chemistry, or drug and alcohol use. Another common cause is failure to take medication as prescribed. Your doctor has evaluated your situation for the likely cause of this seizure. It is important that you follow his advice concerning any medication changes and follow-up care. Further testing of anti-seizure medication levels in your blood may be necessary. If you have a drive away driver's license, it's important that you DO NOT DRIVE until given permission by your physician. This seizure must be reported to the drive away driver 's license bureau. Call the doctor or return if seizures recur, or if new or unusual symptoms arise -- such as severe headache, confusion, excessive sleepiness, local weakness or numbness, neck stiffness, or fever. Muscle Strain You have strained a muscle -- torn the fibers within the muscle. This often occurs with strenuous exertion, or during an injury that suddenly stretches the muscle. The seriousness of a strain varies. Some strains heal within days, others cause problems for months. X-rays cannot show a muscle strain. X-rays are taken only if symptoms suggest that a fracture could be present. The usual treatment of a muscle strain is rest and ice packs. Sometimes, a sling, splint, or crutches may be necessary to rest the muscle. The muscle can be used again once pain subsides. Severe strains require a special exercise and stretching program to prevent permanent stiffness and disability. Your doctor will advise you if this will be necessary. Call the doctor immediately if pain or swelling becomes severe, or if numbness or discoloration develop. Prescriptions: Methocarbamol [Robaxin 750 mg Tablet] 750 mg PO ASDIR PRN #40 tablet PRN Reason:
--- NOTE | 2017-12-31 22:29 | RADIOLOGY REPORT (SQ) ---
EXAM DESCRIPTION: CHEST SINGLE VIEW COMPLETED DATE/TIME: 12/31/2017 10:12 pm REASON FOR STUDY: SOB COMPARISON: None. EXAM PARAMETERS: NUMBER OF VIEWS: One view. TECHNIQUE: Single frontal radiographic view of the chest acquired. RADIATION DOSE: NA LIMITATIONS: None. FINDINGS: LUNGS AND PLEURA: Low lung volumes results in bronchovascular crowding. No opacities, mas ses or pneumothorax. No pleural effusion. MEDIASTINUM AND HILAR STRUCTURES: No masses. Contour normal. HEART AND VASCULAR STRUCTURES: Heart normal in size. Normal vasculature. BONES: No acute findings. HARDWARE: None in the chest. OTHER: No other significant finding. IMPRESSION: NO ACUTE RADIOGRAPHIC FINDING IN THE CHEST. TECHNICAL DOCUMENTATION: JOB ID: [id number] [employer]- All Rights Reserved Reading location - IP/workstation name: [email or web address]
[2017-12-31 22:52] LABS: ALANINE AMINOTRANSFERASE 62 U/L (9-52); ALBUMIN 4.4 g/dL (3.5-5.0); ALKALINE PHOSPHATASE 77 U/L (38-126); ANION GAP 11 (5-19); ASPARTATE AMINO TRANSFERASE 68 U/L (14-36); BILIRUBIN,DIRECT 0.4 mg/dL (0.0-0.4); BILIRUBIN,TOTAL 0.4 mg/dL (0.2-1.3); BLOOD UREA NITROGEN 20 mg/dL (7-20); CALCIUM 9.8 mg/dL (8.4-10.2); CARBON DIOXIDE 30 mmol/L (22-30); CHLORIDE 101 mmol/L (98-107); GLUCOSE 114 mg/dL (75-110); LIPASE 253.7 U/L (23-300); POTASSIUM 4.3 mmol/L (3.6-5.0); SODIUM 142.2 mmol/L (137-145); TOTAL PROTEIN 7.9 g/dL (6.3-8.2)
[2017-12-31] MEDS ORDERED: METHOCARBAMOL 750 MG TABLET PO ONE (23:21)
[2018-01-01 00:55] VITALS: BP 134/87
== END 2018-01-01 00:52 | disposition home or self-care (01) ==
LOC: ER 20:31
DX: G40.909 Epilepsy, unspecified, not intractable, without status epilepticus (principal); Z79.899 Other long term (current) drug therapy; R10.30 Lower abdominal pain, unspecified; R10.11 Right upper quadrant pain; M54.6 Pain in thoracic spine; G89.29 Other chronic pain; Z98.890 Other specified postprocedural states; F17.200 Nicotine dependence, unspecified, uncomplicated; I10 Essential (primary) hypertension; J45.909 Unspecified asthma, uncomplicated; Z88.6 Allergy status to analgesic agent; Z91.018 Allergy to other foods
CPT/HCPCS: 99284; 51701; 36415; 83690; 80053; 71045; A9270; J3490

== ENCOUNTER 2018-02-23 20:28 | Emergency (ER) | payer MEDICARE, MEDICAID ==
--- NOTE | 2018-02-23 21:21 | RADIOLOGY REPORT (SQ) ---
EXAM DESCRIPTION: ANKLE LEFT AP/LATERAL COMPLETED DATE/TIME: 02/23/2018 9:07 pm REASON FOR STUDY: fall COMPARISON: 12/01/2017 NUMBER OF VIEWS: Two views. TECHNIQUE: AP and lateral radiographic images acquired of the left ankle. LIMITATIONS: None. FINDINGS: MINERALIZATION: Normal. BONES: No acute fracture or dislocation. No worrisome bone lesions. JOINTS: No effusions. SOFT TISSUES: No soft tissue swelling. No foreign body. OTHER: No other significant finding. IMPRESSION: No fracture. TECHNICAL DOCUMENTATION: JOB ID: [id number] [place]-72 2010 [employer]- All Rights Reserved Reading location - IP/workstation name: [email or web address]
--- NOTE | 2018-02-23 21:50 | RADIOLOGY REPORT (SQ) ---
EXAM DESCRIPTION: CT HEAD WITHOUT COMPLETED DATE/TIME: 02/23/2018 9:26 pm REASON FOR STUDY: fall COMPARISON: 11/08/2017 TECHNIQUE: Axial images acquired through the brain without intravenous contrast. Images reviewed wi th bone, brain and subdural windows. Images stored on PACS. All CT scanners at this facility use dose modulation, iterative reconstruction, and/or weight based d osing when appropriate to reduce radiation dose to as low as reasonably achievable (ALARA). [facility]: Dose Right [facility]: CareDose [facility]: Dose Right [facility]: Teradose 4D [facility]: Smart [employer] RADIATION DOSE: CT Rad equipment meets quality standard of care and radiation dose reduction techniq ues were employed. CTDIvol: 53.2 mGy. DLP: 991 mGy-cm. mGy. LIMITATIONS: None. FINDINGS: VENTRICLES: Normal size and contour. CEREBRUM: No masses. No hemorrhage. No midline shift. No evidence for acute infarction. Normal gra y/white matter differentiation. No areas of low density in the white matter. CEREBELLUM: No masses. No hemorrhage. No alteration of density. No evidence for acute infarction. EXTRAAXIAL SPACES: No fluid collections. No masses. ORBITS AND GLOBE: No intra- or extraconal masses. Normal contour of globe without masses. CALVARIUM: No fracture. PARANASAL SINUSES: No fluid or mucosal thickening. SOFT TISSUES: No mass or hematoma. OTHER: No other significant finding. IMPRESSION: No acute intracranial findings. EVIDENCE OF ACUTE STROKE: NO. COMMENT: Quality ID # [id number]: Final reports with documentation of one or more dose reduction techniques (e.g., Automated exposure control, adjustment of the mA and/or kV according to patient size, use of iterative reconstruction technique) TECHNICAL DOCUMENTATION: JOB ID: [id number] [place]-72 2010 [employer]- All Rights Reserved Reading location - IP/workstation name: [email or web address]
--- NOTE | 2018-02-23 21:52 | RADIOLOGY REPORT (SQ) ---
EXAM DESCRIPTION: CT CERVICAL SPINE WITHOUT COMPLETED DATE/TIME: 02/23/2018 9:26 pm REASON FOR STUDY: fall COMPARISON: None. TECHNIQUE: Axial images acquired through the cervical spine without intravenous contrast. Images re viewed with lung, soft tissue and bone windows. Reconstructed coronal and sagittal MPR images review ed. Images stored on PACS. All CT scanners at this facility use dose modulation, iterative reconstruction, and/or weight based d osing when appropriate to reduce radiation dose to as low as reasonably achievable (ALARA). [facility]: Dose Right [facility]: CareDose [facility]: Dose Right [facility]: Teradose 4D [facility]: [email or web address] RADIATION DOSE: CT Rad equipment meets quality standard of care and radiation dose reduction techniq ues were employed. CTDIvol: 32.0 mGy. DLP: 651 mGy-cm. mGy. LIMITATIONS: None. FINDINGS: ALIGNMENT: Anatomic. MINERALIZATION: Normal. VERTEBRAL BODIES: No fractures or dislocation. DISCS: No significant disc disease. FACETS, LATERAL MASSES, POSTERIOR ELEMENTS: No fractures. No dislocation. No acute findings. HARDWARE: None in the spine. VISUALIZED RIBS: No fractures. LUNG APICES AND SOFT TISSUES: No significant or acute findings. OTHER: No other significant finding. IMPRESSION: NO ACUTE FINDINGS IN THE CERVICAL SPINE. TECHNICAL DOCUMENTATION: JOB ID: [id number] [place]-72 Quality ID # [id number]: Final reports with documentation of one or more dose reduction techniques (e.g., Au tomated exposure control, adjustment of the mA and/or kV according to patient size, use of iterative reconstruction technique) 2010 [employer]- All Rights Reserved Reading location - IP/workstation name: [employer]
[2018-02-23] MEDS ORDERED: MORPHINE SULFATE 10 MG/ML INJ IV ONE (21:59)
[2018-02-23] MEDS ORDERED: METOCLOPRAMIDE HCL INJ/PF 10 MG/2 ML SDV IV ONE (21:59)
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
[2018-02-23 22:40] LABS: ABSOLUTE EOSINOPHILS # (AUTO) 0.2 10^3/uL (0.0-0.6); ABSOLUTE LYMPHOCYTES (AUTO) 1.6 10^3/uL (0.5-4.7); ABSOLUTE MONOCYTES (AUTO) 0.3 10^3/uL (0.1-1.4); ABSOLUTE NEUT (AUTO) 2.1 10^3/uL (1.7-8.2); BASOPHILS % (AUTO) 0.5 % (0-2); EOSINOPHILS % (AUTO) 3.8 % (0-6); HEMOGLOBIN 13.1 g/dL (12.0-15.5); LYMPHOCYTES % (AUTO) 38.6 % (13-45); MEAN CORPUSCULAR HEMOGLOBIN 31.8 pg (27.0-33.4); MEAN CORPUSCULAR HGB CONC 33.6 g/dL (32.0-36.0); MEAN CORPUSCULAR VOLUME 95 fl (80-97); MONOCYTES % (AUTO) 7.2 % (3-13); PLATELET COUNT 231 10^3/uL (150-450); RED BLOOD COUNT 4.12 10^6/uL (3.72-5.28); RED CELL DISTRIBUTION WIDTH 14.9 % (11.5-14.0); SEGMENTED NEUTROPHILS % (AUTO) 49.9 % (42-78); TOTAL CELLS COUNTED % (AUTO) 100 %; WHITE BLOOD COUNT 4.2 10^3/uL (4.0-10.5)
[2018-02-23 22:55] LABS: ANION GAP 11 (5-19); BLOOD UREA NITROGEN 17 mg/dL (7-20); CALCIUM 9.6 mg/dL (8.4-10.2); CARBON DIOXIDE 28 mmol/L (22-30); CHLORIDE 102 mmol/L (98-107); GLUCOSE 109 mg/dL (75-110); POTASSIUM 4.2 mmol/L (3.6-5.0); SODIUM 141.1 mmol/L (137-145)
[2018-02-23 22:57] LABS: ALCOHOL < 10 mg/dL (NONE DETECTED)
[2018-02-23] MEDS ORDERED: HYDROCODONE/ACETAMINOPHEN 5-325 MG (6 TAB/ER DISP) PO PRN (23:22)
[2018-02-23 23:35] VITALS: BP 143/81
--- NOTE | 2018-02-23 23:58 | RADIOLOGY REPORT (SQ) ---
EXAM DESCRIPTION: XR KNEE 4 OR MORE VIEWS COMPLETED DATE/TME: 02/23/2018 22:00 CLINICAL HISTORY: 48 years, Female, fall, pain COMPARISON: None. NUMBER OF VIEWS: 4 TECHNIQUE: Four views of the LEFT knee were obtained in AP, bilateral oblique and crosstable lateral projection. LIMITATIONS: None. FINDINGS: Mild degenerative changes are noted with sharpening of the tibial spines and tricompartmental osteophytes. The joint spaces are within normal limits. No fracture or dislocation. The soft tissues are within normal limits. IMPRESSION: No acute radiographic abnormality. 2011 [employer]- All Rights Reserved
== END 2018-02-23 23:54 | disposition home or self-care (01) ==
LOC: ER 20:28
DX: S09.90XA Unspecified injury of head, initial encounter (principal); S99.912A Unspecified injury of left ankle, initial encounter; M25.572 Pain in left ankle and joints of left foot; M25.562 Pain in left knee; M54.2 Cervicalgia; R51 Headache; W10.9XXA Fall (on) (from) unspecified stairs and steps, initial encounter; Y92.009 Unspecified place in unspecified non-institutional (private) residence as the place of occurrence of the external cause; G40.909 Epilepsy, unspecified, not intractable, without status epilepticus; Z79.899 Other long term (current) drug therapy; I10 Essential (primary) hypertension; J45.909 Unspecified asthma, uncomplicated; Z88.6 Allergy status to analgesic agent; Z91.018 Allergy to other foods
CPT/HCPCS: 99285; 96374; 96375; 36415; 80307; 83735; 84703; 85025; 80048; 73600; 73564; 70450; 72125; L1902; L0120; J2765; J2270; A9270

== ENCOUNTER 2018-04-25 13:54 | Emergency (ER) | payer MEDICARE, MEDICAID ==
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
--- NOTE | 2018-04-25 18:33 | RADIOLOGY REPORT (SQ) ---
EXAM DESCRIPTION: KUB/ABDOMEN (SINGLE VIEW) COMPLETED DATE/TIME: 04/25/2018 6:23 pm REASON FOR STUDY: low back pain, eval pre MRI for stim removal COMPARISON: None. NUMBER OF VIEWS: One view. TECHNIQUE: Supine radiographic image of the abdomen acquired. LIMITATIONS: None. FINDINGS: BOWEL GAS PATTERN: Normal bowel gas pattern. No dilated loops. CALCIFICATIONS: No suspicious calcifications. SOFT TISSUES: No gross mass or suggestion of organomegaly. HARDWARE: Hardware in the lumbar spine. BONES: No acute fracture. No worrisome bone lesions. OTHER: No other significant finding. IMPRESSION: HARDWARE IN THE LUMBAR SPINE. NO RADIOGRAPHIC EVIDENCE FOR ACUTE ABDOMINAL DISEASE. TECHNICAL DOCUMENTATION: JOB ID: [id number]- All Rights Reserved Reading location - IP/workstation name: [email or web address]
--- NOTE | 2018-04-25 19:21 | RADIOLOGY REPORT (SQ) ---
EXAM DESCRIPTION: MRI LUMBAR SPINE WITHOUT COMPLETED DATE/TIME: 04/25/2018 6:54 pm REASON FOR STUDY: back pain, loss of sensation, paralysis COMPARISON: MR 06/19/2017 CT 12/01/2017 TECHNIQUE: Sagittal and Axial imaging includes T1, T2, STIR and gradient echo sequences. Coronal T2/ HASTE imaging. LIMITATIONS: None. FINDINGS: VISUALIZED UPPER ABDOMEN: Limited evaluation. No acute or suspicious findings suggested. SEGMENTATION: No transitional anatomy. The lowest well-developed disc space is labeled L5-S1. ALIGNMENT: Anatomic. VERTEBRAE: Intact. BONE MARROW: Normal. No marrow replacement or reactive changes. DISC SIGNAL: Disc implants are present at L4-5 and L5-S1. POSTERIOR ELEMENTS: Generally intact. No pars defect evident. HARDWARE: Anterior and posterior fusion from L4-S1. There appears to be an anterior plate with screw s into the vertebral bodies. Posterior rods are present with screws through the pedicles. CORD AND CONUS: Normal in size and signal intensity. Conus at the L1 level. SOFT TISSUES: No aortic aneurysm seen. No bulky retroperitoneal adenopathy or mass. No paraspinal mas s or fluid. L1-L2: Mild facet hypertrophy. No central canal or foraminal stenosis. L2-L3: Mild facet hypertrophy. No central canal or foraminal stenosis. L3-L4: Mild facet hypertrophy. No central canal or foraminal stenosis. L4-L5: Central disc/ osteophyte complex. No central canal or foraminal stenosis. Surgical changes. Annular tear. L5-S1: Disc/osteophyte complex. No central canal stenosis. Mild right foraminal narrowing without n erve root entrapment. Moderate left foraminal narrowing. Surgical changes. Annular tear. LOWER THORACIC: Incompletely imaged. No stenosis seen. SACRUM: Visualized upper sacrum intact. OTHER: No other significant findings. IMPRESSION: 1. Mild facet arthropathy throughout the lumbosacral spine. 2. Surgical changes L4-S1. 3. Central disc/ osteophyte complex at L4-5 with no significant central canal or foraminal stenosis. Annular tear. 4. Disc/osteophyte complex. No central canal stenosis. Mild right foraminal narrowing without nerv e root entrapment. Moderate left foraminal narrowing may impinge upon the exiting nerve root. Yue cobb tear. TECHNICAL DOCUMENTATION: JOB ID: [id number]- All Rights Reserved Reading location - IP/workstation name: [email or web address]
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
[2018-04-25 21:58] LABS: APPEARANCE,URINE SLIGHTLY-CLOUDY; BILIRUBIN,URINE NEGATIVE (NEGATIVE); COLOR,URINE YELLOW; GLUCOSE, URINE NEGATIVE (NEGATIVE); KETONES,URINE NEGATIVE (NEGATIVE); LEUKOCYTE ESTERASE,URINE SMALL (NEGATIVE); NITRITE,URINE NEGATIVE (NEGATIVE); PROTEIN,URINE NEGATIVE (NEGATIVE); URINE SPECIFIC GRAVITY 1.021; UROBILINOGEN,URINE NEGATIVE mg/dL (<2.0)
[2018-04-25 22:51] LABS: ABSOLUTE EOSINOPHILS # (AUTO) 0.1 10^3/uL (0.0-0.6); ABSOLUTE LYMPHOCYTES (AUTO) 1.7 10^3/uL (0.5-4.7); ABSOLUTE MONOCYTES (AUTO) 0.3 10^3/uL (0.1-1.4); ABSOLUTE NEUT (AUTO) 2.1 10^3/uL (1.7-8.2); BASOPHILS % (AUTO) 1.1 % (0-2); EOSINOPHILS % (AUTO) 2.6 % (0-6); HEMATOCRIT 38.4 % (36.0-47.0); LYMPHOCYTES % (AUTO) 39.9 % (13-45); MEAN CORPUSCULAR HEMOGLOBIN 31.4 pg (27.0-33.4); MEAN CORPUSCULAR HGB CONC 33.8 g/dL (32.0-36.0); MEAN CORPUSCULAR VOLUME 93 fl (80-97); MONOCYTES % (AUTO) 7.2 % (3-13); PLATELET COUNT 235 10^3/uL (150-450); RED BLOOD COUNT 4.13 10^6/uL (3.72-5.28); RED CELL DISTRIBUTION WIDTH 15.3 % (11.5-14.0); SEGMENTED NEUTROPHILS % (AUTO) 49.2 % (42-78); TOTAL CELLS COUNTED % (AUTO) 100 %; WHITE BLOOD COUNT 4.3 10^3/uL (4.0-10.5)
[2018-04-25 23:10] LABS: ALANINE AMINOTRANSFERASE 48 U/L (9-52); ALBUMIN 4.3 g/dL (3.5-5.0); ALKALINE PHOSPHATASE 58 U/L (38-126); ANION GAP 7 (5-19); ASPARTATE AMINO TRANSFERASE 39 U/L (14-36); BILIRUBIN,DIRECT 0.4 mg/dL (0.0-0.4); BILIRUBIN,TOTAL 0.5 mg/dL (0.2-1.3); BLOOD UREA NITROGEN 19 mg/dL (7-20); CARBON DIOXIDE 29 mmol/L (22-30); CHLORIDE 104 mmol/L (98-107); GLUCOSE 96 mg/dL (75-110); POTASSIUM 3.8 mmol/L (3.6-5.0); SODIUM 139.5 mmol/L (137-145); TOTAL PROTEIN 7.7 g/dL (6.3-8.2)
[2018-04-25 23:12] LABS: C-REACTIVE PROTEIN < 5.0 mg/L (<10.0)
[2018-04-25 23:25] LABS: ERYTHROCYTE SEDIMENTATION RATE 20 mm/hr (0-20)
[2018-04-25 23:33] VITALS: BP 146/88
== END 2018-04-25 23:45 | disposition short-term general hospital (02) ==
LOC: ER 13:54
DX: G83.9 Paralytic syndrome, unspecified (principal); M25.78 Osteophyte, vertebrae; M12.9 Arthropathy, unspecified; M54.5 Low back pain; G89.29 Other chronic pain; I10 Essential (primary) hypertension; J45.909 Unspecified asthma, uncomplicated; Z98.1 Arthrodesis status; Z88.6 Allergy status to analgesic agent; Z91.018 Allergy to other foods; Z86.73 Personal history of transient ischemic attack (TIA), and cerebral infarction without residual deficits; Z87.898 Personal history of other specified conditions
CPT/HCPCS: 36415; 72148; 74018; 80053; 81001; 84702; 85025; 85652; 86140; 99291

== ENCOUNTER 2018-05-17 17:42 | Emergency (ER) | payer MEDICARE, MEDICAID ==
[2018-05-17] MEDS ORDERED: DIAZEPAM 5 MG TABLET PO ONE (18:32)
[2018-05-17 18:53] LABS: ABSOLUTE EOSINOPHILS # (AUTO) 0.1 10^3/uL (0.0-0.6); ABSOLUTE LYMPHOCYTES (AUTO) 1.4 10^3/uL (0.5-4.7); ABSOLUTE MONOCYTES (AUTO) 0.4 10^3/uL (0.1-1.4); ABSOLUTE NEUT (AUTO) 2.2 10^3/uL (1.7-8.2); EOSINOPHILS % (AUTO) 2.5 % (0-6); HEMATOCRIT 36.5 % (36.0-47.0); HEMOGLOBIN 12.5 g/dL (12.0-15.5); LYMPHOCYTES % (AUTO) 34.4 % (13-45); MEAN CORPUSCULAR HEMOGLOBIN 31.8 pg (27.0-33.4); MEAN CORPUSCULAR HGB CONC 34.3 g/dL (32.0-36.0); MEAN CORPUSCULAR VOLUME 93 fl (80-97); MONOCYTES % (AUTO) 8.6 % (3-13); PLATELET COUNT 230 10^3/uL (150-450); RED BLOOD COUNT 3.94 10^6/uL (3.72-5.28); RED CELL DISTRIBUTION WIDTH 14.4 % (11.5-14.0); SEGMENTED NEUTROPHILS % (AUTO) 53.5 % (42-78); TOTAL CELLS COUNTED % (AUTO) 100 %; WHITE BLOOD COUNT 4.1 10^3/uL (4.0-10.5)
[2018-05-17 19:07] LABS: ANION GAP 9 (5-19); BLOOD UREA NITROGEN 12 mg/dL (7-20); CALCIUM 9.7 mg/dL (8.4-10.2); CARBON DIOXIDE 27 mmol/L (22-30); CHLORIDE 100 mmol/L (98-107); GLUCOSE 109 mg/dL (75-110); POTASSIUM 4.4 mmol/L (3.6-5.0); SODIUM 135.5 mmol/L (137-145)
--- NOTE | 2018-05-17 20:09 | ER Document Report ---
ED General - General Chief Complaint: Tremor Stated Complaint: WEAKNESS Time Seen by Provider: 05/17/18 18:19 TRAVEL OUTSIDE OF THE [place] IN LAST 30 DAYS: No - HPI Patient complains to provider of: Tremor Notes: Patient coming in today for evaluation of tremor. Patient states initially tremor started in her left leg down her foot and then proceeded to go to her right leg. Prior to my evaluation patient is lying in stretcher comfortably on her cell phone. no movement of the lower extremities. Upon entrance into the examination room and reduction of myself patient lower extremities to start to shake. Patient was recently seen and evaluated for new onset of lower extremity paralysis. 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 She was seen by neurosurgery did not believe the cord compression was enough to require surgical decompression patient was transferred to local [facility] facility where the patient currently resides at for rehabilitation. Denies any trauma or falls denies any fevers chills nausea vomiting patient is now moving bilateral lower extremities rocking back and forth - Related Data Allergies/Adverse Reactions: aspirin [Aspirin] Allergy (Intermediate, Verified 02/23/17 19:56) rash strawberry [Amoret] Allergy (Mild, Verified 02/23/17 19:56) Hives Past Medical History - Social History Smoking Status: Unknown if Ever Smoked Family History: Reviewed & Not Pertinent, Arthritis, DM, Hyperlipidemia. denies : CAD, COPD, CVA, Hypertension, Malignancy, Thyroid Disfunction Patient has suicidal ideation: No Patient has homicidal ideation: No - Past Medical History Cardiac Medical History: Reports: Hx Hypertension Pulmonary Medical History: Reports: Hx Asthma Neurological Medical History: Reports: Hx Cerebrovascular Accident - mild 2009, Hx Seizures Endocrine Medical History: Reports: Hx Hypothyroidism Renal/ Medical History: Denies: Hx Peritoneal Dialysis Musculoskeletal Medical History: Reports Hx Arthritis, Reports Hx Musculoskeletal Deformity, Reports Hx Musculoskeletal Trauma Psychiatric Medical History: Reports: Hx Anxiety, Hx Depression Past Surgical History: Reports: Hx Orthopedic Surgery - back; March 15 2016. Denies: Hx Hysterectomy - Immunizations Immunizations up to date: No Hx Diphtheria, Pertussis, Tetanus Vaccination: No Review of Systems - Review of Systems Constitutional: No symptoms reported EENT: No symptoms reported Cardiovascular: No symptoms reported Respiratory: No symptoms reported Gastrointestinal: No symptoms reported Genitourinary: No symptoms reported Female Genitourinary: No symptoms reported Musculoskeletal: Muscle pain Skin: No symptoms reported Hematologic/Lymphatic: No symptoms reported Neurological/Psychological: No symptoms reported -: Yes All other systems reviewed and negative Physical Exam - Vital signs Vitals: Temp Pulse Resp BP Pulse Ox 98.3 F 74 16 141/79 H 96 05/17/18 19:27 05/17/18 19:27 05/17/18 19:27 05/17/18 19:27 05/17/18 19:27 Interpretation: Normal - General General appearance: Appears well, Alert - HEENT Head: Normocephalic, Atraumatic Eyes: Normal Pupils: PERRL - Respiratory Respiratory status: No respiratory distress Chest status: Nontender Breath sounds: Normal Chest palpation: Normal - Cardiovascular Rhythm: Regular Heart sounds: Normal auscultation Murmur: No - Abdominal Inspection: Normal Distension: No distension Bowel sounds: Normal Tenderness: Nontender Organomegaly: No organomegaly - Back Back: Normal, Nontender - Extremities General upper extremity: Normal inspection, Nontender, Normal color, Normal ROM , Normal temperature General lower extremity: Normal inspection, Nontender, Normal color, Normal ROM , Normal temperature, Normal weight bearing. No: Teri's sign - Neurological Neuro grossly intact: Yes Cognition: Normal Orientation: AAOx4 [place] Coma Scale Eye Opening: Spontaneous Nely Coma Scale Verbal: Oriented [place] Coma Scale Motor: Obeys Commands Nely Coma Scale Total: 15 Speech: Normal Motor strength normal: LUE, RUE Sensory: Normal Notes: Sensation and distal feet are intact when testing Babinski. Patient does move her legs. Patient while in the room continues to have a tremor rocking her legs back and forth. Patient states feels like spasming patient however with no one in the room is observed at the nurses station with no movement no spasming no rocking back and forth of her lower extremities. Again upon entering the room in a rocking [id number] movement return - Psychological Associated symptoms: Normal affect, Normal mood - Skin Skin Temperature: Warm Skin Moisture: Dry Skin Color: Normal Course - Re-evaluation Re-evalutation: 05/18/18 02:13 Initially thought due to muscle spasm Valium was given to the patient patient upon reevaluation again started having a slight tremor upon entering the room however explained to the patient mitral abnormalities were not seen in her laboratory studies recommend increasing her Valium at the nursing facility 3 times daily for the next few days patient agrees with this plan at this time agrees to be discharged back to nursing her care facility. - Vital Signs Vital signs: Temp Pulse Resp BP Pulse Ox 98.8 F 78 16 113/58 L 95 05/17/18 23:38 05/17/18 23:38 05/17/18 23:38 05/17/18 23:38 05/17/18 23:38 - Laboratory Result Diagrams: 05/17/18 18:40 05/17/18 18:40 Laboratory results interpreted by me: 05/17/18 05/17/18 18:40 18:40 RDW 14.4 H Sodium 135.5 L Est GFR (Non-Af Amer) 54 L Discharge - Discharge Clinical Impression: Tremor Condition: Good Disposition: HOME-SNF (ED ONLY) Additional Instructions: Evaluation today shows signs of a slight tremor. I recommend that she continue with the volume is already prescribed I recommend possibly increasing this to 3 times a day to help out with your symptoms. However recommend the patient follows up with primary care provider basic laboratory studies today do not show any electrolyte abnormalities patient is to see her specialist as well. Return to ER symptoms worsen. Prescriptions: Diazepam [Valium 5 mg Tablet] 5 mg PO TID PRN #9 tablet PRN Reason: Referrals: TAYLOR GUILLERMO MD [Primary Care Provider] - Follow up tomorrow
[2018-05-17 23:42] VITALS: BP 113/58
== END 2018-05-17 23:15 ==
LOC: ER 17:42
DX: R25.1 Tremor, unspecified (principal); R53.83 Other fatigue; I10 Essential (primary) hypertension; Z88.6 Allergy status to analgesic agent
CPT/HCPCS: 99285; 36415; 83735; 85025; 80048; A9270

== ENCOUNTER 2018-05-30 15:28 | Emergency (ER) | payer MEDICARE, MEDICAID ==
--- NOTE | 2018-05-30 15:45 | ER Document Report ---
ED General - General Stated Complaint: POSSIBLE SEIZURE Time Seen by Provider: 05/30/18 15:37 Mode of Arrival: Medic Information source: Patient TRAVEL OUTSIDE OF THE [place] IN LAST 30 DAYS: No - HPI Notes: Patient is a 48-year-old female history of CVA 2009 with seizures since age 14, hypothyroidism, anxiety, depression, back surgery March 2016 with loss of sensation and motor strength in both lower extremities. Patient now presents with report of a seizure witnessed at the assisted living facility where she currently resides. The patient was observed with tonic-clonic activity that subsided and she arrives alert and conversant. The patient did not bite her tongue or lose continence. She reports chronic lower back pain but states that the seizure occurred while she was laying in bed and did not fall and hit the floor or sustain any other injury. She reports no change in her chronic lower extremity weakness and subjective numbness. The patient reports no fever, chills, dysuria, constipation, diarrhea, chest pain, difficulty breathing. No recent changes in her medications. Patient was doing physical therapy earlier today and thinks this may have overworked her slightly leading to the muscle cramps which she describes as proceeding the reported seizure event. Lumbar Spine MRI 04/25/18 16:29 IMPRESSION: 1. Mild facet arthropathy throughout the lumbosacral spine. 2. Surgical changes L4-S1. 3. Central disc/ osteophyte complex at L4-5 with no significant central canal or foraminal stenosis. Annular tear. 4. Disc/osteophyte complex. No central canal stenosis. Mild right foraminal narrowing without nerve root entrapment. Moderate left foraminal narrowing may impinge upon the exiting nerve root. Annular tear. - Related Data Allergies/Adverse Reactions: aspirin [Aspirin] Allergy (Intermediate, Verified 02/23/17 19:56) rash strawberry [Bozrah] Allergy (Mild, Verified 02/23/17 19:56) Hives Past Medical History - General Information source: Patient - Social History Smoking Status: Never Smoker Frequency of alcohol use: None Drug Abuse: None Lives with: [facility] Family History: Reviewed & Not Pertinent, Arthritis, DM, Hyperlipidemia. denies : CAD, COPD, CVA, Hypertension, Malignancy, Thyroid Disfunction - Past Medical History Cardiac Medical History: Reports: Hx Hypertension Pulmonary Medical History: Reports: Hx Asthma Neurological Medical History: Reports: Hx Cerebrovascular Accident - mild 2009, Hx Seizures Endocrine Medical History: Reports: Hx Hypothyroidism Renal/ Medical History: Denies: Hx Peritoneal Dialysis Musculoskeletal Medical History: Reports Hx Arthritis, Reports Hx Musculoskeletal Deformity, Reports Hx Musculoskeletal Trauma Psychiatric Medical History: Reports: Hx Anxiety, Hx Depression Past Surgical History: Reports: Hx Orthopedic Surgery - back; March 15 2016. Denies: Hx Hysterectomy - Immunizations Immunizations up to date: No Hx Diphtheria, Pertussis, Tetanus Vaccination: No Review of Systems - Review of Systems -: Yes All other systems reviewed and negative Physical Exam - Vital signs Vitals: Resp Pulse Ox 21 H 100 05/30/18 16:00 05/30/18 16:00 - Notes Notes: PHYSICAL EXAMINATION: GENERal: no acute distress. Flat affect somewhat slow to respond. HEAD: Atraumatic, normocephalic. EYES: Pupils equal round and reactive to light, extraocular movements intact, conjunctiva are normal. ENT: Nares patent, oropharynx clear without exudates. Moist mucous membranes. NECK: Normal range of motion, supple without lymphadenopathy LUNGS: Breath sounds clear to auscultation bilaterally and equal. No wheezes rales or rhonchi. HEART: Regular rate and rhythm without murmurs ABDOMEN: Soft, nontender, nondistended abdomen. No guarding, no rebound. No masses appreciated. Obese. Female : deferred Musculoskeletal: Normal range of motion, no pitting or edema. No cyanosis. Pain appreciated paraspinal lower lumbar region and left greater than right. Question left CVA tenderness, although this is reproducible with motion and palpation. NEUROLOGICAL: Cranial nerves grossly intact. Normal speech. There is mild bilateral lower extremity weakness and subjective numbness, which is chronic according to the patient's history. The patient is usually wheelchair-bound by her report. No saddle anesthesia or incontinence. Normal to slightly hyperreflexic both lower extremities. PSYCH: Flat affect, somewhat slow to respond. SKIN: Warm, Dry, normal turgor, no rashes or lesions noted. Course - Re-evaluation Re-evalutation: 05/30/18 16:15 Old records were reviewed which included a thorough neurologic and neurosurgical evaluation pertaining to the chronic lower extremity weakness which is unchanged by report. Patient requesting medication for back pain and was given naproxen and was given Valium for muscle spasms. 05/30/18 19:59 Patient had adequate relief of her discomfort after receiving naproxen and Valium. Patient had no electrolyte imbalance or anemia or evidence for UTI. The patient was able to get up per her baseline and sit in a wheelchair which is how she usually gets around. Patient's seizure history is long-standing. A Keppra level is sent off for outpatient follow-up. Patient is stable for return back to the assisted living facility. No evidence for hypoglycemia. No clinical suggestion for significant back injury aunt, and her back pain is chronic and she was in the bed when the supposed seizure occurred. 05/30/18 20:01 - Vital Signs Vital signs: Temp Pulse Resp BP Pulse Ox 17 117/76 99 05/30/18 17:01 05/30/18 17:01 05/30/18 17:01 - Laboratory Result Diagrams: 05/30/18 15:20 05/30/18 15:20 Laboratory results interpreted by me: 05/30/18 05/30/18 15:20 15:20 WBC 3.6 L RDW 14.9 H Sodium 135.8 L Est GFR (Non-Af Amer) 51 L AST 61 H ALT 65 H Discharge - Discharge Clinical Impression: Seizure Back strain Qualifiers: Encounter type: initial encounter Qualified Code(s): S39.012A - Strain of muscle, fascia and tendon of lower back, initial encounter Condition: Stable Disposition: HOME, SELF-CARE Instructions: Low Back Pain ([facility]), Seizure, Known Epileptic ([facility]) Additional Instructions: Follow-up with your regular practitioner for the results of the Keppra level. Prescriptions: Naproxen 500 mg PO BIDP PRN #30 tablet PRN Reason: Referrals: TAYLOR GUILLERMO MD [ACTIVE STAFF] - Follow up as needed
[2018-05-30] MEDS ORDERED: DIAZEPAM 5 MG TABLET PO ONE (16:12)
[2018-05-30] MEDS ORDERED: NAPROXEN 250 MG TABLET PO ONE (16:12)
[2018-05-30 16:37] LABS: ABSOLUTE EOSINOPHILS # (AUTO) 0.1 10^3/uL (0.0-0.6); ABSOLUTE LYMPHOCYTES (AUTO) 1.4 10^3/uL (0.5-4.7); ABSOLUTE MONOCYTES (AUTO) 0.3 10^3/uL (0.1-1.4); ABSOLUTE NEUT (AUTO) 1.7 10^3/uL (1.7-8.2); BASOPHILS % (AUTO) 0.7 % (0-2); EOSINOPHILS % (AUTO) 3.7 % (0-6); HEMATOCRIT 37.3 % (36.0-47.0); HEMOGLOBIN 12.5 g/dL (12.0-15.5); LYMPHOCYTES % (AUTO) 39.8 % (13-45); MEAN CORPUSCULAR HEMOGLOBIN 31.2 pg (27.0-33.4); MEAN CORPUSCULAR HGB CONC 33.4 g/dL (32.0-36.0); MEAN CORPUSCULAR VOLUME 93 fl (80-97); MONOCYTES % (AUTO) 9.2 % (3-13); PLATELET COUNT 250 10^3/uL (150-450); RED CELL DISTRIBUTION WIDTH 14.9 % (11.5-14.0); SEGMENTED NEUTROPHILS % (AUTO) 46.6 % (42-78); TOTAL CELLS COUNTED % (AUTO) 100 %; WHITE BLOOD COUNT 3.6 10^3/uL (4.0-10.5)
[2018-05-30 16:51] LABS: ALANINE AMINOTRANSFERASE 65 U/L (9-52); ALBUMIN 4.3 g/dL (3.5-5.0); ALKALINE PHOSPHATASE 58 U/L (38-126); ANION GAP 11 (5-19); ASPARTATE AMINO TRANSFERASE 61 U/L (14-36); BILIRUBIN,DIRECT 0.1 mg/dL (0.0-0.4); BILIRUBIN,TOTAL 0.4 mg/dL (0.2-1.3); BLOOD UREA NITROGEN 15 mg/dL (7-20); CALCIUM 10.1 mg/dL (8.4-10.2); CARBON DIOXIDE 26 mmol/L (22-30); CHLORIDE 99 mmol/L (98-107); GLUCOSE 102 mg/dL (75-110); POTASSIUM 4.5 mmol/L (3.6-5.0); SODIUM 135.8 mmol/L (137-145); TOTAL PROTEIN 7.5 g/dL (6.3-8.2)
[2018-05-30 16:58] LABS: APPEARANCE,URINE CLEAR; BILIRUBIN,URINE NEGATIVE (NEGATIVE); COLOR,URINE STRAW; GLUCOSE, URINE NEGATIVE (NEGATIVE); KETONES,URINE NEGATIVE (NEGATIVE); LEUKOCYTE ESTERASE,URINE NEGATIVE (NEGATIVE); NITRITE,URINE NEGATIVE (NEGATIVE); PROTEIN,URINE NEGATIVE (NEGATIVE); URINE SPECIFIC GRAVITY 1.011; UROBILINOGEN,URINE NEGATIVE mg/dL (<2.0)
[2018-05-31 01:08] VITALS: BP 107/65
== END 2018-05-31 | disposition home or self-care (01) ==
LOC: ER 15:28
DX: R56.9 Unspecified convulsions (principal); S39.012A Strain of muscle, fascia and tendon of lower back, initial encounter; X58.XXXA Exposure to other specified factors, initial encounter; M25.78 Osteophyte, vertebrae; G89.29 Other chronic pain; R53.1 Weakness; M62.838 Other muscle spasm; J45.909 Unspecified asthma, uncomplicated; I10 Essential (primary) hypertension; Z86.73 Personal history of transient ischemic attack (TIA), and cerebral infarction without residual deficits; Z98.890 Other specified postprocedural states; Z88.6 Allergy status to analgesic agent; Z91.018 Allergy to other foods
CPT/HCPCS: 99284; 36415; 80177; 83735; 85025; 80053; 81001; A9270 ×2

== ENCOUNTER 2018-06-01 18:42 | Emergency (ER) | payer MEDICARE, MEDICAID ==
--- NOTE | 2018-06-01 18:58 | ER Document Report ---
ED Neuro Symptoms/Deficit - General Stated Complaint: ALTERED MENTAL STATUS Time Seen by Provider: 06/01/18 18:52 TRAVEL OUTSIDE OF THE [place] IN LAST 30 DAYS: No - HPI Notes: Patient is a 38-year-old female that presents to the emergency department for chief complaint of acute confusion. Patient presents from alf for acute confusion. Nurse taking care of her states that she was normal baseline ANO x4 at 1800. Patient's roommate heard her mumbling incoherently and making noises and called the nurse back at which time she was found to be only oriented to person. 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 She is usually oriented and conversational. She has not had any recent traumas. She denies being on blood thinners. She denies any pain or recent illness. Past Medical History: Hypertension, hyperlipidemia, spinal cord injury and paraplegia Past Surgical History: Reviewed in chart Social History: Denies drugs alcohol and tobacco Family History: Reviewed and noncontributory for presenting illness Allergies: Reviewed, see documented allergy list. REVIEW OF SYSTEMS: CONSTITUTIONAL : No fever No chills No diaphoresis No recent illness EENT: No vision changes No congestion No sore throat CARDIOVASCULAR: No chest pain No palpitations RESPIRATORY: No shortness of breath No cough No difficulty breathing GASTROINTESTINAL: No abdominal pain No nausea No vomiting No diarrhea GENITOURINARY: No dysuria No hematuria No difficulty urinating MUSCULOSKELETAL: No back pain No leg pain No arm pain SKIN: No rashes No lesions LYMPHATIC: No swollen, enlarged glands. NEUROLOGICAL: No lightheadedness No headache No weakness paresthesias PSYCHIATRIC: No anxiety No depression PHYSICAL EXAMINATION: Vital signs reviewed, nursing noted reviewed. GENERAL: Well-appearing, well-nourished and in no acute distress. HEAD: Atraumatic, normocephalic. EYES: Eyes appear normal, extraocular movements intact, sclera anicteric, conjunctiva are normal. ENT: nares patent, oropharynx clear without exudates. Moist mucous membranes. NECK: Normal range of motion, supple without lymphadenopathy LUNGS: Breath sounds clear to auscultation bilaterally and equal. No wheezes rales or rhonchi. HEART: Regular rate and rhythm without murmurs ABDOMEN: Soft, nontender, normoactive bowel sounds. No rebound, guarding, or rigidity. No masses appreciated. EXTREMITIES: Nontender, good range of motion, no pitting or edema. Neurologic: NIH=7 at 1850. Mild aphasia, mild dysarthria, bilateral lower extremity effort against gravity but legs fall to bed, mild left arm and leg numbness PSYCH: Normal mood, normal affect. SKIN: Warm, Dry, normal turgor, no rashes or lesions noted on exposed skin - Related Data Allergies/Adverse Reactions: aspirin [Aspirin] Allergy (Intermediate, Verified 02/23/17 19:56) rash strawberry [Marsing] Allergy (Mild, Verified 02/23/17 19:56) Hives Past Medical History - Social History Smoking Status: Never Smoker Family History: Reviewed & Not Pertinent, Arthritis, DM, Hyperlipidemia. denies : CAD, COPD, CVA, Hypertension, Malignancy, Thyroid Disfunction - Past Medical History Cardiac Medical History: Reports: Hx Hypertension Pulmonary Medical History: Reports: Hx Asthma Neurological Medical History: Reports: Hx Cerebrovascular Accident - mild 2009, Hx Seizures Endocrine Medical History: Reports: Hx Hypothyroidism Renal/ Medical History: Denies: Hx Peritoneal Dialysis Musculoskeletal Medical History: Reports Hx Arthritis, Reports Hx Musculoskeletal Deformity, Reports Hx Musculoskeletal Trauma Psychiatric Medical History: Reports: Hx Anxiety, Hx Depression Past Surgical History: Reports: Hx Orthopedic Surgery - back; March 15 2016. Denies: Hx Hysterectomy - Immunizations Immunizations up to date: No Hx Diphtheria, Pertussis, Tetanus Vaccination: No Review of Systems - Review of Systems Notes: Dictated Physical Exam - Notes Notes: Dictated Course - Re-evaluation Re-evalutation: 06/01/18 19:39 Vitals reviewed. Nursing notes reviewed. Initial NIH was 7. Repeat NIH at [address] brain is unchanged. Noncontrast CT brain is negative. CT Angio of head shows no acute stenosis or aneurysm. Laboratory 06/01/18 06/01/18 06/01/18 18:55 18:55 18:55 WBC 3.9 L RBC 3.76 Hgb 11.9 L Hct 35.2 L MCV 94 MCH 31.7 MCHC 33.9 RDW 14.7 H Plt Count 231 Seg Neutrophils % 38.7 L Lymphocytes % 46.0 H Monocytes % 11.2 Eosinophils % 2.9 Basophils % 1.2 Absolute Neutrophils 1.5 L Absolute Lymphocytes 1.8 Absolute Monocytes 0.4 Absolute Eosinophils 0.1 Absolute Basophils 0.0 PT 12.5 INR 0.89 APTT 27.7 Sodium 140.4 Potassium 4.8 Chloride 105 Carbon Dioxide 26 Anion Gap 9 BUN 14 Creatinine 1.10 Est GFR ( Amer) > 60 Est GFR (Non-Af Amer) 53 L Glucose 112 H Calcium 9.5 Total Bilirubin 0.4 Direct Bilirubin 0.2 Neonat Total Bilirubin Not Reportable Neonat Direct Bilirubin Not Reportable Neonat Indirect Bili Not Reportable AST 41 H ALT 47 Alkaline Phosphatase 55 Total Protein 7.0 Albumin 3.9 I discussed patient's case with Dr. Vance at [facility] neurology stroke team. Patient has chronic lower extremity weakness which is increasing her NIH. She has new aphasia, dysarthria, and left-sided numbness. Dr. Vance and myself feel that because she has no other contraindications to TPA and her speech and cognition are involved that TPA is appropriate for this patient. TPA will be given and patient will be transferred to [facility] for further neurologic evaluation. I did discuss the risks and benefits of TPA with the patient who seemed to understand and is in agreement with treatment plan. Head CT 06/01/18 18:47 IMPRESSION: NORMAL BRAIN CT WITHOUT CONTRAST. EVIDENCE OF ACUTE STROKE: NO. Head CTA 06/01/18 18:52 IMPRESSION: NO CTA EVIDENCE OF STENOSIS OR ANEURYSM OF THE [place]. 06/01/18 20:02 Patient reevaluated, NIH is unchanged and still 7. She is still hemodynamically stable for transportation - Laboratory Result Diagrams: 06/01/18 18:55 06/01/18 18:55 - EKG Interpretation by Me Additional EKG results interpreted by me: 06/01/18 19:44 Interpreted by myself 1857: Normal sinus rhythm, rate 74, normal axis, no ectopy, diffuse T wave flattening, borderline R wave progression Critical Care Note - Critical Care Note Total time excluding time spent on procedures (mins): 35 Comments: Acute stroke with TPA administration. Potential for neurologic decompensation and life-threatening bleeding. Discussion with medical policy specialist. Multiple repeat evaluations of neurologic status ED NIH Stroke Scale - NIH Stroke Scale When completed:: Before Alteplase *: 1. NIH scale should be completed with appropriate accompanying assessment tools. *: 2. The NIH should reflect what the patient is capable of doing and should not be coached by the clinician. 1a. Level of Consciousness: 0=Alert;keenly responsive -: 1=Drowsy -: 2=Obtunded -: 3=Coma/unresponsive or reflex to noxious stimuli. 1a. Responses: 0 1b. Orientation Questions: a. What month is it? -: b. How old are you? -: 0=Answers both questions correctly. -: 1=Answers one question correctly or patient is intubated or has orotracheal trauma. -: 2=Answers neither question correctly. 1b. Responses: 0 1c. Response to commands: a. Open and close eyes? -: b. Grain Commodity Manager and release hand? -: Credit is given despite weakness. Demonstration of task is permitted. Substitute command if hands cannot be used. -: 0=Performs both tasks correctly -: 1=Performs one task correctly -: 2=Performs neither task correctly 1c. Responses: 0 2. Gaze: Establish eye contact and instruct patient to "Follow my finger" -: 0=Normal -: 1=Partial gaze palsy. Gaze is abnormal in one or both eyes, but where forced deviation or total gaze paresis is not present. -: 2=Forced deviation or total gaze paresis. 2. Responses: 0 3. Visual Stokes: Sees fingers in all four quadrants. -: 0=No visual loss. -: 1=Partial hemianopsia. -: 2=Complete hemianopsia. -: 3=Bilateral hemianopsia (including Cortical blindness) 3. Responses: 0 4. Facial Movement: Instruct patient to: -: a. Show me your teeth -: b. Raise your eyebrows -: c. Close your eyes -: d. Smile -: 0=Normal symmetrical movement -: 1=Minor paralysis (flattened nasolabial fold, asymmetry on smiling). -: 2=Partial paralysis (total or near total paralysis of lower face). -: 3=Complete paralysis of upper and lower face 4. Responses: 0 5. Motor functions (left arm): Alternate sides and extend each arm with palms down (90 degrees if sitting or 45 degrees for supine). -: 0=No drift;limb holds for full 10 seconds. -: 1=Drift; limb holds but drifts down before full 10 seconds, but does not hit bed. -: 2=Some effort against gravity; limb cannot get to or maintain position. -: 3=No effort against gravity; limb falls. -: 4=No movement. -: UN=Amputation, joint fusion, explain in comments. 5. Responses (left arm): 0 5. Motor Functions (right arm): Alternate sides and extend each arm with palms down (90 degrees if sitting or 45 degrees for supine). -: 0=No drift;limb holds for full 10 seconds. -: 1=Drift; limb holds but drifts down before full 10 seconds, but does not hit bed. -: 2=Some effort against gravity; limb cannot get to or maintain position. -: 3=No effort against gravity; limb falls. -: 4=No movement. -: UN=Amputation, joint fusion, explain in comments. 5. Responses (right arm): 0 6. Motor Functions (left leg): With patient lying supine, alternate sides and extend each leg (30 degrees always while supine). -: 0=No drift, leg holds position for full 5 seconds -: 1=Drift; leg falls before full 5 seconds but does not hit bed. -: 2=Some effort against gravity, leg falls to bed but some effort against gravity. -: 3=No effort against gravity, leg falls to bed immediately. -: 4=No movement. -: UN=Amputation, joint fusion; explain in comments. 6. Responses (left leg): 2 6. Motor Functions (right leg): With patient lying supine, alternate sides and extend each leg (30 degrees always while supine). -: 0=No drift, leg holds position for full 5 seconds -: 1=Drift; leg falls before full 5 seconds but does not hit bed. -: 2=Some effort against gravity, leg falls to bed but some effort against gravity. -: 3=No effort against gravity, leg falls to bed immediately. -: 4=No movement. -: UN=Amputation, joint fusion; explain in comments. 6. Responses (right leg): 2 7. Limb Ataxia: With eyes open instruct patient to: -: a. "Touch your finger to your nose". -: b. "Touch your heel to your cote" -: 0=Absent -: 1=Present in one limb. -: 2=Present in two limbs. -: UN=Amputation or joint fusion; explain in comments. 7. Responses: 0 8. Sensory: Test sensation using pinprick or noxious stimuli. Test as many body parts as possible. -: 0=Normal;no sensory loss -: 1=Mile to moderate sensory loss (patient feels pin prick but is less sharp on affected side). -: 2=Severe or total sensory loss. 8. Responses: 1 9. Best Language: Instruct patient to: -: a. "Describe what you see in this picture." -: b. "Name the items in this picture." -: c. "Read these sentences." -: 0=No aphasia, normal -: 1=Mild to moderate aphasia. -: 2=Severe aphasia -: 3=Mute, global aphasia, no usable speech or auditory comprehension. 9. Responses: 1 10. Articulation, Dysarthia: Instruct patient to: -: "Read these words" or "Repeat these words" -: 0=Normal -: 1=Mild to moderate; patient may slur some words but can be understood without difficulty. -: 2=Severe; patients speech so slurred as to be unintelligible in the absence of dysphasia. -: UN=Intubated or other physical barrier, explain in comments. 10. Responses: 1 11. Extinction or inattention: 0=No abnormality -: 1= Visual, tactile, auditory, spatial, or personal inattention or extinction to bilateral simulation in one or the sensory modalities. -: 2=Profound rosa maria-inattention or rosa maria-inattention to more than one modality; does not recognize own hand. 11. Responses: 0 Total Score: 7 Discharge - Discharge Clinical Impression: Stroke Qualifiers: CVA mechanism: unspecified Qualified Code(s): I63.9 - Cerebral infarction, unspecified Condition: Stable Disposition: [facility]
[2018-06-01 19:11] LABS: ABSOLUTE EOSINOPHILS # (AUTO) 0.1 10^3/uL (0.0-0.6); ABSOLUTE LYMPHOCYTES (AUTO) 1.8 10^3/uL (0.5-4.7); ABSOLUTE MONOCYTES (AUTO) 0.4 10^3/uL (0.1-1.4); ABSOLUTE NEUT (AUTO) 1.5 10^3/uL (1.7-8.2); BASOPHILS % (AUTO) 1.2 % (0-2); EOSINOPHILS % (AUTO) 2.9 % (0-6); HEMATOCRIT 35.2 % (36.0-47.0); HEMOGLOBIN 11.9 g/dL (12.0-15.5); MEAN CORPUSCULAR HEMOGLOBIN 31.7 pg (27.0-33.4); MEAN CORPUSCULAR HGB CONC 33.9 g/dL (32.0-36.0); MEAN CORPUSCULAR VOLUME 94 fl (80-97); MONOCYTES % (AUTO) 11.2 % (3-13); PLATELET COUNT 231 10^3/uL (150-450); RED BLOOD COUNT 3.76 10^6/uL (3.72-5.28); RED CELL DISTRIBUTION WIDTH 14.7 % (11.5-14.0); SEGMENTED NEUTROPHILS % (AUTO) 38.7 % (42-78); TOTAL CELLS COUNTED % (AUTO) 100 %; WHITE BLOOD COUNT 3.9 10^3/uL (4.0-10.5)
[2018-06-01 19:16] LABS: INTERNATIONAL RATION (INR) 0.89; PROTHROMBIN TIME 12.5 SEC (11.4-15.4)
[2018-06-01 19:17] LABS: PARTIAL THROMBOPLASTIN TIME 27.7 SEC (23.5-35.8)
[2018-06-01 19:30] LABS: ALANINE AMINOTRANSFERASE 47 U/L (9-52); ALBUMIN 3.9 g/dL (3.5-5.0); ALKALINE PHOSPHATASE 55 U/L (38-126); ANION GAP 9 (5-19); ASPARTATE AMINO TRANSFERASE 41 U/L (14-36); BILIRUBIN,DIRECT 0.2 mg/dL (0.0-0.4); BILIRUBIN,TOTAL 0.4 mg/dL (0.2-1.3); BLOOD UREA NITROGEN 14 mg/dL (7-20); CALCIUM 9.5 mg/dL (8.4-10.2); CARBON DIOXIDE 26 mmol/L (22-30); CHLORIDE 105 mmol/L (98-107); GLUCOSE 112 mg/dL (75-110); POTASSIUM 4.8 mmol/L (3.6-5.0); SODIUM 140.4 mmol/L (137-145)
[2018-06-01] MEDS ORDERED: ALTEPLASE INJ 100 MG VIAL IV ONE (19:30)
--- NOTE | 2018-06-01 19:36 | RADIOLOGY REPORT (SQ) ---
EXAM DESCRIPTION: CT HEAD WITHOUT COMPLETED DATE/TIME: 06/01/2018 7:05 pm REASON FOR STUDY: bed 17 stroke alert COMPARISON: None. TECHNIQUE: Axial images acquired through the brain without intravenous contrast. Images reviewed wi th bone, brain and subdural windows. Additional sagittal and coronal reconstructions were generated. Images stored on PACS. All CT scanners at this facility use dose modulation, iterative reconstruction, and/or weight based d osing when appropriate to reduce radiation dose to as low as reasonably achievable (ALARA). [facility]: Dose Right [facility]: CareDose [facility]: Dose Right [facility]: Teradose 4D [facility]: Smart Virool RADIATION DOSE: CT Rad equipment meets quality standard of care and radiation dose reduction techniq ues were employed. CTDIvol: 53.2 mGy. DLP: 1124 mGy-cm. mGy. LIMITATIONS: None. FINDINGS: VENTRICLES: Normal size and contour. CEREBRUM: No masses. No hemorrhage. No midline shift. No evidence for acute infarction. Normal gra y/white matter differentiation. No areas of low density in the white matter. CEREBELLUM: No masses. No hemorrhage. No alteration of density. No evidence for acute infarction. EXTRAAXIAL SPACES: No fluid collections. No masses. ORBITS AND GLOBE: No intra- or extraconal masses. Normal contour of globe without masses. CALVARIUM: No fracture. PARANASAL SINUSES: No fluid or mucosal thickening. SOFT TISSUES: No mass or hematoma. OTHER: No other significant finding. IMPRESSION: NORMAL BRAIN CT WITHOUT CONTRAST. EVIDENCE OF ACUTE STROKE: NO. COMMENT: Findings were discussed with the ordering physician at 1930 hours on this date. Quality ID # [id number]: Final reports with documentation of one or more dose reduction techniques (e.g., Au tomated exposure control, adjustment of the mA and/or kV according to patient size, use of iterative reconstruction technique) TECHNICAL DOCUMENTATION: JOB ID: [id number] [employer]- All Rights Reserved Reading location - IP/workstation name: [email or web address]
--- NOTE | 2018-06-01 19:40 | RADIOLOGY REPORT (SQ) ---
EXAM DESCRIPTION: CTA HEAD COMPLETED DATE/TIME: 06/01/2018 7:10 pm REASON FOR STUDY: stroke COMPARISON: None. TECHNIQUE: Post IV contrast scanning, thin section axial imaging through the brain to evaluate the a rterial structures. Source and MIP images are saved and reviewed on PACS. Advanced 3D imaging as volume-rendering, MIPs, SSD performed? No All CT scanners at this facility use dose modulation, iterative reconstruction, and/or weight based d osing when appropriate to reduce radiation dose to as low as reasonably achievable (ALARA). [facility]: Dose Right [facility]: CareDose [facility]: Dose Right [facility]: Teradose 4D [facility]: [employer] CONTRAST TYPE AND DOSE: contrast/concentration: Isovue 350.00 mg/ml; Total Contrast Delivered: 70.0 ml; Total Saline Delivered: 75.0 ml RENAL FUNCTION: BUN 15 creatinine 1.14 LIMITATIONS: None. FINDINGS: [place]: The anterior, middle, posterior cerebral arteries are all patent. No ev idence of aneurysm or focal stenosis. POSTERIOR CIRCULATION: The distal vertebral arteries are patent as is the basilar artery. No aneurysm . BRAIN: No gross enhancing lesions as visualized. The superior cerebral hemispheres are not included in the field of view. BONES: Intact as visualized. SINUSES: No fluid or mucosal thickening. OTHER: No other significant finding. IMPRESSION: NO CTA EVIDENCE OF STENOSIS OR ANEURYSM OF THE [place]. TECHNICAL DOCUMENTATION: JOB ID: [id number] Quality ID # [id number]: Final reports with documentation of one or more dose reduction techniques (e.g., Au tomated exposure control, adjustment of the mA and/or kV according to patient size, use of iterative reconstruction technique) 2010 [employer]- All Rights Reserved Reading location - IP/workstation name: [email or web address]
[2018-06-01] MEDS ORDERED: ALTEPLASE INJ 100 MG VIAL ONE (19:43)
--- NOTE | 2018-06-01 19:44 | RADIOLOGY REPORT (SQ) ---
EXAM DESCRIPTION: CTA NECK COMPLETED DATE/TIME: 06/01/2018 7:10 pm REASON FOR STUDY: stroke COMPARISON: None. TECHNIQUE: Axial dynamic scanning technique with dynamic contrast enhancement through the extra-product craftsman nial carotid and vertebral arteries. Multiplanar reconstruction. 3-D MIPS and Volume-rendered imag es acquired at the workstation and saved to PACS. Images are reviewed in soft tissue, bone, lung w indows. All CT scanners at this facility use dose modulation, iterative reconstruction, and/or weight based d osing when appropriate to reduce radiation dose to as low as reasonably achievable (ALARA). [facility]: Dose Right [facility]: CareDose [facility]: Dose Right [facility]: Teradose 4D [facility]: DiscoveRX CONTRAST TYPE AND DOSE: 70 mL Omnipaque 350- low osmolar. RENAL FUNCTION: BUN 15 creatinine 1.14 LIMITATIONS: None. FINDINGS: AORTIC ARCH: Normal three-vessel origin. Bilateral subclavian arteries are patent. No d issection. RIGHT CAROTIDS: Patent common, internal and external carotid arteries without suggestion of significa nt stenosis or irregular plaque. No dissection. RIGHT VERTEBRAL: Patent. No dissection. LEFT CAROTIDS: Patent common, internal and external carotid arteries without suggestion of significan t stenosis or irregular plaque. No dissection. LEFT VERTEBRAL: Patent. No dissection. OTHER: No other significant finding. OTHER: 3-D reconstructions confirm findings. IMPRESSION: NORMAL CTA OF THE EXTRA-CRANIAL CAROTID AND VERTEBRAL ARTERIES. COMMENT: Quality ID #[id number]: Measurements of distal internal carotid diameter were used as the denomina tor for stenosis measurement. TECHNICAL DOCUMENTATION: JOB ID: [id number] Quality ID # [id number]: Final reports with documentation of one or more dose reduction techniques (e.g., Au tomated exposure control, adjustment of the mA and/or kV according to patient size, use of iterative reconstruction technique) 2010 [employer]- All Rights Reserved Reading location - IP/workstation name: [email or web address]
--- NOTE | 2018-06-01 19:59 | RADIOLOGY REPORT (SQ) ---
EXAM DESCRIPTION: CHEST SINGLE VIEW COMPLETED DATE/TIME: 06/01/2018 7:12 pm REASON FOR STUDY: bed 17 stroke alert COMPARISON: 09/17/2015 EXAM PARAMETERS: NUMBER OF VIEWS: One view. TECHNIQUE: Single frontal radiographic view of the chest acquired. RADIATION DOSE: NA LIMITATIONS: None. FINDINGS: LUNGS AND PLEURA: No opacities, masses or pneumothorax. No pleural effusion. MEDIASTINUM AND HILAR STRUCTURES: No masses. Contour normal. HEART AND VASCULAR STRUCTURES: Cardiac silhouette is enlarged. BONES: No acute findings. HARDWARE: None in the chest. OTHER: No other significant finding. IMPRESSION: Cardiomegaly. No pulmonary edema. TECHNICAL DOCUMENTATION: JOB ID: [id number] [employer]- All Rights Reserved Reading location - IP/workstation name: [email or web address]
[2018-06-01 20:53] VITALS: BP 146/88
--- NOTE | 2018-06-01 22:02 | EKG REPORT ---
SEVERITY:- BORDERLINE ECG - SINUS RHYTHM BORDERLINE R WAVE PROGRESSION, ANTERIOR LEADS BORDERLINE T ABNORMALITIES, ANTERIOR LEADS : Confirmed by: Pascual Balderas 01-Jun-2018 22:00:53
== END 2018-06-01 20:10 | disposition short-term general hospital (02) ==
LOC: ER 18:42
DX: I63.9 Cerebral infarction, unspecified (principal); R47.1 Dysarthria and anarthria; R20.0 Anesthesia of skin; R53.1 Weakness; R41.82 Altered mental status, unspecified; Z87.828 Personal history of other (healed) physical injury and trauma; G82.20 Paraplegia, unspecified; I10 Essential (primary) hypertension; E78.5 Hyperlipidemia, unspecified; F41.9 Anxiety disorder, unspecified; F32.9 Major depressive disorder, single episode, unspecified; Z88.6 Allergy status to analgesic agent; Z91.018 Allergy to other foods
CPT/HCPCS: 37212; 93005; 99291; 37195; 36415; 85025; 85610; 85730; 80053; 84484; 71045; 70450; 70496; 70498; 93010; J2997

== ENCOUNTER 2018-06-18 19:37 | Emergency (ER) | payer MEDICARE, MEDICAID ==
[2018-06-18] MEDS ORDERED: NORMAL SALINE 1000 ML 1,000 ML IV ONE (20:07)
--- NOTE | 2018-06-18 20:07 | ER Document Report ---
ED General - General Chief Complaint: Probable Seizure Stated Complaint: POSSIBLE SEIZURE Time Seen by Provider: 06/18/18 19:42 Notes: Patient is a 48-year-old female with seizure disorder that presents to the emergency department for chief complaint of seizure. Patient states she was at her rehab facility, and apparently she had a seizure, at this time she is mildly postictal, but able to answer questions. She only now is complaining of low back pain, which is chronic for her. Denies having any headache, lightheadedness, numbness, tingling or weakness. She did recently have a stroke , and was given TPA, and she has had improvement with therapy, from the left- sided deficit she had. She denies any new numbness or weakness today. Denies any facial droop or difficulty speaking. She just feels tired. She does not recall the medication she is on, but they are listed with her paperwork, she is currently on Vimpat, and Keppra. Past Medical History: Seizure disorder, CVA, hypothyroidism, hyperlipidemia, hypertension Past Surgical History: Reviewed and not pertinent for presentation Social History: Denies current tobacco, alcohol or drug use, she lives at a snf facility currently for rehab Family History: Reviewed and noncontributory for presenting illness Allergies: Reviewed, see documented allergy list. REVIEW OF SYSTEMS: Other than noted above, the 12 point review of systems was reviewed with the patient and were negative, all pertinent findings are included in the HPI. PHYSICAL EXAMINATION: Vital signs reviewed, nursing noted reviewed. GENERAL: Obese female and in no acute distress. HEAD: Atraumatic, normocephalic. EYES: Eyes appear normal, extraocular movements intact, sclera anicteric, conjunctiva are normal. ENT: nares patent, oropharynx clear without exudates. Moist mucous membranes. NECK: Normal range of motion, supple without lymphadenopathy LUNGS: Breath sounds clear to auscultation bilaterally and equal. No wheezes rales or rhonchi. HEART: Regular rate and rhythm without murmurs ABDOMEN: Soft, nontender, normoactive bowel sounds. No rebound, guarding, or rigidity. No masses appreciated. EXTREMITIES: Nontender, good range of motion, trace pitting edema bilaterally NEUROLOGICAL: No focal neurological deficits. Moves all extremities spontaneously Motor and sensory grossly intact on exam. NIH stroke scale score : 0, patient had excellent strength in all 4 extremities, sensation intact and equal bilaterally, no facial droop, no dysarthria, or aphasia. PSYCH: Normal mood, normal affect. SKIN: Warm, Dry, normal turgor, no rashes or lesions noted on exposed skin TRAVEL OUTSIDE OF THE [place] IN LAST 30 DAYS: No - Related Data Allergies/Adverse Reactions: aspirin [Aspirin] Allergy (Intermediate, Verified 02/23/17 19:56) rash strawberry [[place]] Allergy (Mild, Verified 02/23/17 19:56) Hives Past Medical History - Social History Smoking Status: Never Smoker Family History: Reviewed & Not Pertinent, Arthritis, DM, Hyperlipidemia. denies : CAD, COPD, CVA, Hypertension, Malignancy, Thyroid Disfunction - Past Medical History Cardiac Medical History: Reports: Hx Hypertension Pulmonary Medical History: Reports: Hx Asthma Neurological Medical History: Reports: Hx Cerebrovascular Accident - mild 2009, Hx Seizures Endocrine Medical History: Reports: Hx Hypothyroidism Renal/ Medical History: Denies: Hx Peritoneal Dialysis Musculoskeletal Medical History: Reports Hx Arthritis, Reports Hx Musculoskeletal Deformity, Reports Hx Musculoskeletal Trauma Psychiatric Medical History: Reports: Hx Anxiety, Hx Depression Past Surgical History: Reports: Hx Orthopedic Surgery - back; March 15 2016. Denies: Hx Hysterectomy - Immunizations Immunizations up to date: No Hx Diphtheria, Pertussis, Tetanus Vaccination: No Physical Exam - Vital signs Vitals: Resp BP Pulse Ox 15 159/89 H 100 06/18/18 19:45 06/18/18 19:45 06/18/18 19:45 Course - Re-evaluation Re-evalutation: Patient seen and examined vital signs reviewed. Patient was evaluated and treated as appropriate for the patient's presenting symptoms and complaint, with consideration of any critical or life threatening conditions that may be associated with their obtained history and exam as noted above. Patient was treated with IV fluids, and IV Keppra 500 mg. Patient was complaining of low back pain, she has a history of, she was given some IV Dilaudid and Zofran for this, and was much improved on reevaluation. Patient was coming out of her postictal state, she did not have any focal neurological deficits. Evaluation was most consistent with breakthrough seizure in a patient with underlying seizure disorder. Patient be discharged back to her rehab facility, advised to follow-up with her primary physician. Plan of care was discussed with the patient at this point, after careful consideration I feel that that patient can be discharged from the emergency department, the patient was educated treatments and reasons to return to the emergency department based on their presumed diagnosis as noted above, they were advised to followup with a primary care physician in 2-3 days. Patient was agreeable to plan of care. *Note is created using voice recognition software and may contain spelling, syntax or grammatical errors. - Vital Signs Vital signs: Temp Pulse Resp BP Pulse Ox 98.5 F 16 133/78 H 100 06/18/18 19:46 06/18/18 20:11 06/18/18 21:00 06/18/18 21:00 - EKG Interpretation by Me Additional EKG results interpreted by me: EKG demonstrates sinus rhythm with a ventricular rate of 76 bpm, left axis deviation, QTC 500 ms, there is a T wave inversion in leads V2, V3, this is compared with prior EKG from 06/01/2018, without significant change. Discharge - Discharge Clinical Impression: Seizure Back pain Qualifiers: Back pain location: low back pain Chronicity: chronic Back pain laterality: bilateral Sciatica presence: without sciatica Qualified Code(s): M54.5 - Low back pain Condition: Stable Disposition: REHAB FACILITY Instructions: Seizure, Known Epileptic ([facility]) Referrals: ALTA NAVARRO DO [Primary Care Provider] - Follow up in 3-5 days
[2018-06-18] MEDS ORDERED: LEVETIRACETAM 500 MG/NACL-ISO 500 MG/100 ML RTUPB IV ONE (20:08)
[2018-06-18] MEDS ORDERED: FENTANYL CITRATE INJ/PF 100 MCG/2 ML AMPUL IV ONE (20:42)
[2018-06-18] MEDS ORDERED: ONDANSETRON HCL INJ/PF 4 MG/2 ML SDV IV ONE (20:43)
--- NOTE | 2018-06-18 21:02 | EKG REPORT ---
SEVERITY:- BORDERLINE ECG - SINUS RHYTHM BORDERLINE T ABNORMALITIES, ANTERIOR LEADS BORDERLINE PROLONGED QT INTERVAL : Confirmed by: Jose Elizondo MD 18-Jun-2018 21:02:12
[2018-06-18 21:47] VITALS: BP 133/78
== END 2018-06-18 23:50 ==
LOC: ER 19:37
DX: G40.909 Epilepsy, unspecified, not intractable, without status epilepticus (principal); Z79.899 Other long term (current) drug therapy; M54.5 Low back pain; G89.29 Other chronic pain; I10 Essential (primary) hypertension; E66.9 Obesity, unspecified; J45.909 Unspecified asthma, uncomplicated; Z86.73 Personal history of transient ischemic attack (TIA), and cerebral infarction without residual deficits; Z88.6 Allergy status to analgesic agent; Z91.018 Allergy to other foods
CPT/HCPCS: 93005; 99285; 96361; 96374; 93010; J3010; J2405; J7030; J1953

== ENCOUNTER → 2018-06-27 | Outpatient (CLI) | payer MEDICARE, MEDICAID ==
--- NOTE | 2018-06-27 14:18 | WOMENS IMAGING REPORT ---
EXAM DESCRIPTION: BILAT DIAGNOSTIC MAMMO W/CAD; U/S BREAST UNILAT LIMITED COMPLETED DATE/TIME: 06/27/2018 12:56 pm; 06/27/2018 1:33 pm REASON FOR STUDY: BILATERAL DIAGNOSTIC MAMMO /N60.02; LT BREAST DISCHARGE N60.[address]60[address] OF LEFT BREAST Patient gives a history of clear left nipple discharge COMPARISON: No prior breast imaging TECHNIQUE: Standard craniocaudal and mediolateral oblique views of each breast recorded using digita l acquisition. Left breast 90 mediolateral view was also performed. Left breast ultrasound was performed with right retroareolar imaging for comparison LIMITATIONS: None. FINDINGS: RIGHT BREAST MASSES: No suspicious masses. CALCIFICATIONS: No suspicious calcifications. Multiple foci of milk of calcium are identified as me nisci on the MLO view ARCHITECTURAL DISTORTION: None. DEVELOPING DENSITY: None. ASYMMETRY: None noted. OTHER: No other significant findings. LEFT BREAST MASSES: No suspicious masses. CALCIFICATIONS: No suspicious calcifications. Multiple foci of milk of calcium are identified as men isci on the MLO view ARCHITECTURAL DISTORTION: None. DEVELOPING DENSITY: None. ASYMMETRY: None noted. OTHER: No other significant finding. Read with the assistance of CAD: .[facility] - R2 Cenova Version 1.3 .[facility] Imaging - R2 Cenova Version 1.3 .[facility] - R2 Cenova Version 2.4 .[facility] - R2 Cenova Version 2.4 .[facility] - R2 Virtual Classroom Manager Version 9.2 Left breast ultrasound: Ultrasound of the left breast was performed with comparison imaging of the right. There are no dilat ed ducts in the left retroareolar region. No left retroareolar masses or worrisome acoustic absorpti on. 5 mm cyst in the left 9 o'clock retroareolar region. Comparison limited ultrasound of the right retroareolar region demonstrates no dilated ducts. No cys ts. No retroareolar masses or worrisome acoustic absorption. IMPRESSION: No mammographic or sonographic evidence for malignancy left breast. No mammographic evidence for malignancy right breast BREAST DENSITY: c. The breasts are heterogeneously dense, which may obscure small masses. BIRAD: 2 Benign findings. RECOMMENDATION: RECOMMENDED FOLLOW UP: Clinical follow-up for nipple discharge. Correlate with sesar ent medications. Patient should continue bilateral screening mammography/ tomosynthesis in June 2019 SPECIFIC INTERVENTION/IMAGING/CONSULTATION RECOMMENDED:No additional intervention/ imaging/consultati on needed at this time. COMMUNICATION:Patient notified by letter. COMMENT: The patient has been notified of the results by letter per SA requirements. Additional no tification policies are in place for contacting patient with suspicious or incomplete findings. Quality ID #[id number]: The [employer] recommends an annual screening mammogram for women aged 40 years or over. This facility utilizes a reminder system to ensure that all patients receive reminder letters, and/or direct phone calls for appointments. This includes reminders for routine scr eening mammograms, diagnostic mammograms, or other Breast Imaging Interventions when appropriate. Th is patient will be placed in the appropriate reminder system. The [employer] (ACR) has developed recommendations for screening MRI of the breast s in certain patient populations, to be used in conjunction with mammography. Breast MRI surveillanc e may be appropriate for women with more than 20% lifetime risk of developing breast cancer as deter mined by genetic testing, significant family history of the disease, or history of mantle radiation f or Hodgkins Disease. ACR Practice Guidelines 2008. TECHNICAL DOCUMENTATION: FINDING NUMBER: (1) ASSESSMENT: (1) JOB ID: [id number] [employer]- All Rights Reserved Reading location - IP/workstation name: [email or web address]
--- NOTE | 2018-06-27 14:18 | WOMENS IMAGING REPORT ---
EXAM DESCRIPTION: BILAT DIAGNOSTIC MAMMO W/CAD; U/S BREAST UNILAT LIMITED COMPLETED DATE/TIME: 06/27/2018 12:56 pm; 06/27/2018 1:33 pm REASON FOR STUDY: BILATERAL DIAGNOSTIC MAMMO /N60.02; LT BREAST DISCHARGE N60.02 N60.[address] OF LEFT BREAST Patient gives a history of clear left nipple discharge COMPARISON: No prior breast imaging TECHNIQUE: Standard craniocaudal and mediolateral oblique views of each breast recorded using digita l acquisition. Left breast 90 mediolateral view was also performed. Left breast ultrasound was performed with right retroareolar imaging for comparison LIMITATIONS: None. FINDINGS: RIGHT BREAST MASSES: No suspicious masses. CALCIFICATIONS: No suspicious calcifications. Multiple foci of milk of calcium are identified as me nisci on the MLO view ARCHITECTURAL DISTORTION: None. DEVELOPING DENSITY: None. ASYMMETRY: None noted. OTHER: No other significant findings. LEFT BREAST MASSES: No suspicious masses. CALCIFICATIONS: No suspicious calcifications. Multiple foci of milk of calcium are identified as men isci on the MLO view ARCHITECTURAL DISTORTION: None. DEVELOPING DENSITY: None. ASYMMETRY: None noted. OTHER: No other significant finding. Read with the assistance of CAD: .[facility] - R2 Cenova Version 1.3 .[facility] Imaging - R2 Cenova Version 1.3 .[facility] Imaging - R2 Cenova Version 2.4 .[facility] - R2 Cenova Version 2.4 .[facility] - R2 Solution Design Engineer Version 9.2 Left breast ultrasound: Ultrasound of the left breast was performed with comparison imaging of the right. There are no dilat ed ducts in the left retroareolar region. No left retroareolar masses or worrisome acoustic absorpti on. 5 mm cyst in the left 9 o'clock retroareolar region. Comparison limited ultrasound of the right retroareolar region demonstrates no dilated ducts. No cys ts. No retroareolar masses or worrisome acoustic absorption. IMPRESSION: No mammographic or sonographic evidence for malignancy left breast. No mammographic evidence for malignancy right breast BREAST DENSITY: c. The breasts are heterogeneously dense, which may obscure small masses. BIRAD: 2 Benign findings. RECOMMENDATION: RECOMMENDED FOLLOW UP: Clinical follow-up for nipple discharge. Correlate with sesar ent medications. Patient should continue bilateral screening mammography/ tomosynthesis in June 2019 SPECIFIC INTERVENTION/IMAGING/CONSULTATION RECOMMENDED:No additional intervention/ imaging/consultati on needed at this time. COMMUNICATION:Patient notified by letter. COMMENT: The patient has been notified of the results by letter per SA requirements. Additional no tification policies are in place for contacting patient with suspicious or incomplete findings. Quality ID #[id number]: The [employer] recommends an annual screening mammogram for women aged 40 years or over. This facility utilizes a reminder system to ensure that all patients receive reminder letters, and/or direct phone calls for appointments. This includes reminders for routine scr eening mammograms, diagnostic mammograms, or other Breast Imaging Interventions when appropriate. Th is patient will be placed in the appropriate reminder system. The [employer] (ACR) has developed recommendations for screening MRI of the breast s in certain patient populations, to be used in conjunction with mammography. Breast MRI surveillanc e may be appropriate for women with more than 20% lifetime risk of developing breast cancer as deter mined by genetic testing, significant family history of the disease, or history of mantle radiation f or Hodgkins Disease. ACR Practice Guidelines 2008. TECHNICAL DOCUMENTATION: FINDING NUMBER: (1) ASSESSMENT: (1) JOB ID: [id number] [employer]- All Rights Reserved Reading location - IP/workstation name: [email or web address][email or web address]
== END ==
LOC: WI 12:02
PROVIDERS: ATTEND Family Medicine
DX: N60.02 Solitary cyst of left breast (principal)
CPT/HCPCS: 76642; 77066

== ENCOUNTER 2018-09-16 19:19 | Emergency (ER) | payer MEDICARE, MEDICAID ==
[2018-09-16] MEDS ORDERED: METHOCARBAMOL INJ/PF 1000 MG/10 ML SDV IV ONE (20:05)
[2018-09-16] MEDS ORDERED: DIPHENHYDRAMINE HCL 50 MG/ML VIAL IV ONE (20:06)
[2018-09-16] MEDS ORDERED: METOCLOPRAMIDE HCL INJ/PF 10 MG/2 ML SDV IV ONE (20:06)
[2018-09-16] MEDS ORDERED: NORMAL SALINE 1000 ML 1,000 ML IV ONE (20:06)
--- NOTE | 2018-09-16 20:08 | ER Document Report ---
ED Headache - General Chief Complaint: Headache Stated Complaint: HEADACHES Time Seen by Provider: 09/16/18 19:57 Primary Care Provider: CHAVA BARRERA MD [Primary Care Provider] - Follow up as needed Notes: Patient is a 48-year-old female that comes to the emergency department for chief complaint of headache, she states that she has almost daily headaches, worse for the past week or so, she states this time instead of her whole head she only has a headache on the left side, behind the left eye, radiating around the side of her head and down her neck. She reports pain in her neck and difficulty turning her head side to side. She reports photophobia, phonophobia, denies vomiting, fever, injury. Past medical history of migraines, seizures (on Aptiom), CVA 5 months ago with some faint residual left-sided weakness, and hysterectomy. Treated for hypertension. TRAVEL OUTSIDE OF THE [place] IN LAST 30 DAYS: No - Related Data Allergies/Adverse Reactions: aspirin [Aspirin] Allergy (Intermediate, Verified 09/16/18 20:00) rash strawberry [[place]] Allergy (Mild, Verified 09/16/18 20:00) Hives latex Allergy (Verified 09/16/18 20:00) Past Medical History - General Information source: Patient - Social History Smoking Status: Never Smoker Frequency of alcohol use: None Drug Abuse: None Lives with: Family Family History: Reviewed & Not Pertinent, Arthritis, DM, Hyperlipidemia Patient has suicidal ideation: No Patient has homicidal ideation: No - Past Medical History Cardiac Medical History: Reports: Hx Hypertension Pulmonary Medical History: Reports: Hx Asthma Neurological Medical History: Reports: Hx Cerebrovascular Accident - mild 2009, Hx Seizures Endocrine Medical History: Reports: Hx Hypothyroidism Renal/ Medical History: Denies: Hx Peritoneal Dialysis Musculoskeletal Medical History: Reports Hx Arthritis, Reports Hx Musculoskeletal Deformity, Reports Hx Musculoskeletal Trauma Psychiatric Medical History: Reports: Hx Anxiety, Hx Depression Past Surgical History: Reports: Hx Orthopedic Surgery - back; March 15 2016. Denies: Hx Hysterectomy - Immunizations Immunizations up to date: No Hx Diphtheria, Pertussis, Tetanus Vaccination: No Review of Systems - Review of Systems Constitutional: No symptoms reported EENT: No symptoms reported Cardiovascular: No symptoms reported Respiratory: No symptoms reported Gastrointestinal: No symptoms reported Genitourinary: No symptoms reported Female Genitourinary: No symptoms reported Musculoskeletal: See HPI Skin: No symptoms reported Hematologic/Lymphatic: No symptoms reported Neurological/Psychological: See HPI Physical Exam - Vital signs Vitals: Temp Pulse Resp BP Pulse Ox 97.9 F 70 20 151/84 H 99 09/16/18 19:32 09/16/18 19:32 09/16/18 19:32 09/16/18 19:32 09/16/18 19:32 - Notes Notes: GENERAL: Patient sitting in the dark, squints her eyes, however she does not appear to be in distress. HEAD: Normocephalic, atraumatic. EYES: Pupils equal, round, and reactive to light. Extraocular movements intact. ENT: Oral mucosa moist, tongue midline. Oropharynx unremarkable. Airway patent. Nares patent, no nasal septal hematoma, TM's intact. NECK: Full range of motion. Supple. Trachea midline. LUNGS: Clear to auscultation bilaterally, no wheezes, rales, or rhonchi. No respiratory distress. HEART: Regular rate and rhythm. No murmur ABDOMEN: Soft, non-tender. Non-distended. Bowel sounds present in all 4 quadrants. GENITOURINARY: Deferred EXTREMITIES: Moves all 4 extremities spontaneously. No edema, normal radial and dorsalis pedis pulses bilaterally. No cyanosis. BACK: Tenderness over the left paracervical musculature extending into the trapezius muscle. Pain with movement of the neck laterally, range of motion is still intact, flexion and extension intact. Normal upper and lower extremity range of motion, normal distal neurovascular exam. No midline tenderness. No saddle anesthesia. NEUROLOGICAL: Alert and oriented x3. Normal speech. Normal finger-nose coordina tion, normal facial nerve evaluation, normal upper and lower extremity strength. [cranial nerves II through XII grossly intact]. PSYCH: Normal affect, normal mood. SKIN: Warm, dry, normal turgor. No rashes or lesions noted. Course - Re-evaluation Re-evalutation: Patient denying any new focal numbness or weakness, visual changes, and the headache has been slowly progressive for about a week. Describing tension and migraine symptoms. Does not appear to be in any distress. No neurological deficits noted on my evaluation. 09/16/18 21:05 Patient reevaluated. She is smiling, alert, talking on the phone. She states her headache is gone, she still has a little bit of neck pain but she can turn her head a lot better already. She denies any other complaints. As a result I have low suspicion of intracranial hemorrhage, subarachnoid hemorrhage, meningitis, venous sinus thrombosis. Patient states she already has neurology follow-up, she has been prescribed headaches for migraine in the past, she cannot tell me the name of the headache medication. Giving small amount of Valium, was previously on this, using as muscle relaxer. Discussed expectations, follow-up, and return precautions. Patient states understanding and agreement. - Vital Signs Vital signs: Temp Pulse Resp BP Pulse Ox 97.9 F 69 20 147/94 H 97 09/16/18 19:32 09/16/18 21:46 09/16/18 19:32 09/16/18 21:46 09/16/18 21:46 Discharge - Discharge Clinical Impression: Headache Qualifiers: Headache type: unspecified Headache chronicity pattern: acute headache Intractability: not intractable Qualified Code(s): R51 - Headache Condition: Stable Disposition: HOME, SELF-CARE Additional Instructions: Your evaluation is most suggestive of a tension headache with resulting migraine. Take medication as prescribed for muscle relaxer, apply heat to the area of the neck, do gentle stretches, continue current medications. Follow-up with your neurologist for additional evaluation and management of headaches. Return if you worsen including return to headache, vomiting, weakness on one side of your body, fever, or any other concerning or worsening symptoms. Prescriptions: Diazepam [Valium 5 mg Tablet] 1 - 2 tab PO TID PRN #10 tablet PRN Reason: Referrals: CHAVA BARRERA MD [Primary Care Provider] - Follow up as needed
[2018-09-16 21:53] VITALS: BP 147/94
== END 2018-09-16 21:53 | disposition home or self-care (01) ==
LOC: ER 19:19
DX: R51 Headache (principal); M54.2 Cervicalgia; H53.149 Visual discomfort, unspecified; I10 Essential (primary) hypertension; J45.909 Unspecified asthma, uncomplicated
CPT/HCPCS: 99283; 96375; 96365; J1200; J2800; J2765; J7030

== ENCOUNTER 2018-09-30 18:55 | Emergency (ER) | payer MEDICARE, MEDICAID ==
[2018-09-30] MEDS ORDERED: NORMAL SALINE 1000 ML 1,000 ML IV ONE (20:34)
[2018-09-30] MEDS ORDERED: METOCLOPRAMIDE HCL INJ/PF 10 MG/2 ML SDV IV ONE (20:35)
--- NOTE | 2018-09-30 20:35 | ER Document Report ---
ED Medical Screen (RME) - General Chief Complaint: Headache Stated Complaint: HEADACHE Time Seen by Provider: 09/30/18 20:30 Primary Care Provider: CHAVA BARRERA MD [Primary Care Provider] - Follow up as needed Notes: Patient is a 48-year-old female history of CVA and migraines that presents to the emergency department for chief complaint of headache. Patient reports she is having a migraine similar to that when she is had in the past, ever since she had a stroke before 5 months ago she is been having persistent migraines, she was seen about 3 weeks ago had a migraine cocktail that seemed to help with that her headache came back. ROS: Other than noted above, the 12 point review of systems was reviewed with the patient and were negative, all pertinent findings are included in the HPI. PHYSICAL EXAMINATION: Vital signs reviewed. GENERAL: Patient appears uncomfortable HEAD: Atraumatic, normocephalic. EYES: Pupils equal round extraocular movements intact, conjunctiva are normal. ENT: Nares patent NECK: Normal range of motion CV: Heart regular rate and rhythm LUNGS: No respiratory distress Musculoskeletal: Normal range of motion NEUROLOGICAL: Normal speech PSYCH: Normal mood, normal affect. MDM: Patient seen and examined for rapid initial assessment. Vital signs reviewed. A comprehensive ED assessment and evaluation of the patient, analysis of test results and completion of the medical decision making process will be conducted by additional ED providers. *Note is created using voice recognition software and may contain spelling, syntax or grammatical errors. TRAVEL OUTSIDE OF THE [place] IN LAST 30 DAYS: No - Related Data Allergies/Adverse Reactions: aspirin [Aspirin] Allergy (Intermediate, Verified 09/30/18 19:03) rash strawberry [[place]] Allergy (Mild, Verified 09/30/18 19:03) Hives latex Allergy (Verified 09/30/18 19:03) Past Medical History - Social History Chew tobacco use (# tins/day): No Frequency of alcohol use: None Drug Abuse: None Family history: DM, Hypertension - Past Medical History Cardiac Medical History: Reports: Hx Hypertension Pulmonary Medical History: Reports: Hx Asthma Neurological Medical History: Reports: Hx Cerebrovascular Accident - mild 2009, Hx Seizures Endocrine Medical History: Reports: Hx Hypothyroidism Renal/ Medical History: Denies: Hx Peritoneal Dialysis Musculoskeltal Medical History: Reports Hx Arthritis, Reports Hx Musculoskeletal Deformity, Reports Hx Musculoskeletal Trauma Psychiatric Medical History: Reports: Hx Anxiety, Hx Depression Past Surgical History: Reports: Hx Orthopedic Surgery - back; March 15 2016. Denies: Hx Hysterectomy - Immunizations Immunizations up to date: No Hx Diphtheria, Pertussis, Tetanus Vaccination: No Physical Exam - Vital signs Vitals: Temp Pulse Resp BP Pulse Ox 99.3 F 73 18 139/87 H 98 09/30/18 19:31 09/30/18 19:31 09/30/18 19:31 09/30/18 19:31 09/30/18 19:31 Course - Vital Signs Vital signs: Temp Pulse Resp BP Pulse Ox 99.3 F 73 18 139/87 H 98 09/30/18 19:31 09/30/18 19:31 09/30/18 19:31 09/30/18 19:31 09/30/18 19:31 Doctor's Discharge - Discharge Referrals: CHAVA BARRERA MD [Primary Care Provider] - Follow up as needed
[2018-09-30] MEDS ORDERED: MAGNESIUM SULFATE/D5W 1 GM/100 ML RTUPB IV ONE (20:36)
[2018-09-30] MEDS ORDERED: DEXAMETHASONE SOD PHOS INJ 10 MG/1 ML VIAL IV ONE (20:36)
[2018-09-30] MEDS ORDERED: METHOCARBAMOL INJ/PF 1000 MG/10 ML SDV IV ONE (22:39)
--- NOTE | 2018-09-30 22:45 | ER Document Report ---
ED Headache - General Chief Complaint: Headache Stated Complaint: HEADACHE Time Seen by Provider: 09/30/18 20:30 Primary Care Provider: CHAVA BARRERA MD [Primary Care Provider] - Follow up as needed Notes: Patient is a 48 year old female that comes to the Emergency Department for chief complaint of headache. She was seen by me several weeks ago for headache. She states her headache is essentially "the same", starts with pains in her neck and milder headaches on the side, then developed into throbbing headache with light sensitivity and nausea. She denies head injury or vomiting. She denies numbness, weakness, fever. She denies that the headache is changed or worse from previously. Headache has become gradually worse. She has a history of frequent headaches, states she saw neurology since her last visit here, she states they have not changed management yet. Past medical history of migraines, seizures (takes Aptiom), CVA, hypertension, and hysterectomy. TRAVEL OUTSIDE OF THE [place] IN LAST 30 DAYS: No - Related Data Allergies/Adverse Reactions: aspirin [Aspirin] Allergy (Intermediate, Verified 09/30/18 19:03) rash strawberry [[place]] Allergy (Mild, Verified 09/30/18 19:03) Hives latex Allergy (Verified 09/30/18 19:03) Past Medical History - General Information source: Patient - Social History Smoking Status: Never Smoker Chew tobacco use (# tins/day): No Frequency of alcohol use: None Drug Abuse: None Lives with: Family Family History: Reviewed & Not Pertinent, Arthritis, DM, Hyperlipidemia Patient has suicidal ideation: No Patient has homicidal ideation: No - Past Medical History Cardiac Medical History: Reports: Hx Hypertension Pulmonary Medical History: Reports: Hx Asthma Neurological Medical History: Reports: Hx Cerebrovascular Accident - mild 2009, Hx Seizures Endocrine Medical History: Reports: Hx Hypothyroidism Renal/ Medical History: Denies: Hx Peritoneal Dialysis Musculoskeletal Medical History: Reports Hx Arthritis, Reports Hx Musculoskeletal Deformity, Reports Hx Musculoskeletal Trauma Psychiatric Medical History: Reports: Hx Anxiety, Hx Depression Past Surgical History: Reports: Hx Orthopedic Surgery - back; March 15 2016. Denies: Hx Hysterectomy - Immunizations Immunizations up to date: No Hx Diphtheria, Pertussis, Tetanus Vaccination: No Review of Systems - Review of Systems Constitutional: No symptoms reported EENT: No symptoms reported Cardiovascular: No symptoms reported Respiratory: No symptoms reported Gastrointestinal: See HPI Genitourinary: No symptoms reported Female Genitourinary: No symptoms reported Musculoskeletal: See HPI Skin: No symptoms reported Hematologic/Lymphatic: No symptoms reported Neurological/Psychological: See HPI Physical Exam - Vital signs Vitals: Temp Pulse Resp BP Pulse Ox 99.3 F 73 18 139/87 H 98 09/30/18 19:31 09/30/18 19:31 09/30/18 19:31 09/30/18 19:31 09/30/18 19:31 - Notes Notes: GENERAL: Alert, interacts well. No acute distress. HEAD: Normocephalic, atraumatic. EYES: Pupils equal, round, and reactive to light. Extraocular movements intact. ENT: Oral mucosa moist, tongue midline. Oropharynx unremarkable. Airway patent. Nares patent, no nasal septal hematoma, TM's intact. NECK: Full range of motion. Supple. Trachea midline. LUNGS: Clear to auscultation bilaterally, no wheezes, rales, or rhonchi. No respiratory distress. HEART: Regular rate and rhythm. No murmur ABDOMEN: Soft, non-tender. Non-distended. Bowel sounds present in all 4 quadrants. GENITOURINARY: Deferred EXTREMITIES: Moves all 4 extremities spontaneously. No edema, normal radial and dorsalis pedis pulses bilaterally. No cyanosis. BACK: no cervical, thoracic, lumbar midline tenderness. Mild paracervical muscular tenderness bilaterally, unremarkable range of motion of the neck, no signs of trauma. No saddle anesthesia, normal distal neurovascular exam. NEUROLOGICAL: Alert and oriented x3. Normal speech. [cranial nerves II through XII grossly intact]. PSYCH: Normal affect, normal mood. SKIN: Warm, dry, normal turgor. No rashes or lesions noted. Course - Re-evaluation Re-evalutation: Patient has mild paracervical muscle tenderness bilaterally. Range of motion is unremarkable. She is smiling, talking, laughing, well-appearing. She just received her medications from triage on my initial evaluation, she will be reevaluated. On reevaluation patient sitting on the edge of the bed, smiling, talkative. She states she feels much better and she is ready to leave. She has a normal neurological exam again. Presentation similar to last time but this time she is actually better. She is requesting a muscle relaxer, provided with Robaxin. Still following with neurology. Very low suspicion of venous sinus thrombosis, intracranial hemorrhage, meningitis, subarachnoid hemorrhage based on patient's very benign exam and appearance. Discussed follow-up and return precautions. Patient states understanding and agreement. - Vital Signs Vital signs: Temp Pulse Resp BP Pulse Ox 98.5 F 76 18 126/61 H 100 10/01/18 01:23 10/01/18 01:23 10/01/18 01:23 10/01/18 01:23 10/01/18 01:23 Discharge - Discharge Clinical Impression: Headache Qualifiers: Headache type: unspecified Headache chronicity pattern: acute headache Intractability: not intractable Qualified Code(s): R51 - Headache Condition: Stable Disposition: HOME, SELF-CARE Additional Instructions: Your evaluation is most suggestive of a tension headache with resulting migraine. Take medication as prescribed for muscle relaxer, apply heat to the area of the neck, do gentle stretches, continue current medications. Follow-up with your neurologist for additional evaluation and management of headaches. Return if you worsen including return to headache, vomiting, weakness on one side of your body, fever, or any other concerning or worsening symptoms. Prescriptions: Methocarbamol [Robaxin 750 mg Tablet] 750 mg PO Q6 #20 tablet Referrals: CHAVA BARRERA MD [Primary Care Provider] - Follow up as needed
[2018-10-01 01:30] VITALS: BP 126/61
== END 2018-10-01 01:29 | disposition home or self-care (01) ==
LOC: ER 18:55
DX: R51 Headache (principal); R29.898 Other symptoms and signs involving the musculoskeletal system; H53.149 Visual discomfort, unspecified; R11.0 Nausea; J45.909 Unspecified asthma, uncomplicated; I10 Essential (primary) hypertension; R56.9 Unspecified convulsions; Z79.899 Other long term (current) drug therapy; Z88.6 Allergy status to analgesic agent; Z91.018 Allergy to other foods; Z91.040 Latex allergy status
CPT/HCPCS: 99283; 96361; 96375; 96365; 96367; J2800; J2765; J3475; J7030; J1100

== ENCOUNTER → 2019-03-05 | Outpatient (CLI) | payer MEDICARE, MEDICAID ==
--- NOTE | 2019-03-05 17:09 | RADIOLOGY REPORT (SQ) ---
EXAM DESCRIPTION: U/S EXTREMITY NONVASCULAR LTD COMPLETED DATE/TIME: 03/05/2019 4:58 pm REASON FOR STUDY: (M71.21)SYNOVIAL CYST OF POPLITEAL SPACE AUGUSTE, RIGHT KNEE R22.41 LOCALIZED SWELL ING, MASS AND LUMP, RIGHT LOWER LIMB R22.31 LOCALIZED SWELLING, MASS AND LUMP, RIGHT UPPER LIMB M71. 21 SYNOVIAL CYST OF POPLITEAL SPACE AUGUSTE, RIGHT KNEE COMPARISON: None. TECHNIQUE: Static and real time bright scale ultrasound Doppler spectral analysis, and color Doppler a cquired in the popliteal fossa on the right. LIMITATIONS: None. FINDINGS: Sonographic imaging of the dorsal aspect of the right knee shows no popliteal cyst. IMPRESSION: NO SIGNIFICANT FINDING IN THE POPLITEAL FOSSA. TECHNICAL DOCUMENTATION: JOB ID: [id number] [employer] All Rights Reserved Reading location - IP/workstation name: [email or web address]
--- NOTE | 2019-03-06 07:33 | XCELERA REPORT ---
[address] [address] Upper Extremity Venous Evaluation Name: BLANCA BRASWELL Age: 49 yrs Gender: Female : 1970 Patient Status: Outpatient Patient Location: [facility] Study Date: 03/05/2019 04:20 PM Procedure: Unilateral duplex scan of the right upper extremity veins was performed, including responses to compression and other maneuvers. Reason For Study: RUE SWELLING Ordering Physician: CHAVA BARRERA Performed By: Dina Monge Right Side Venous Evaluation Normal vessel filling wall to wall, compression and augmentation as well as Colour flow down to the forearm veins. Interpretation Summary Normal compression, patency, spontaneous and phasic flow of the right upper extremity veins. : CHAVA BARRERA > Maximo Ward
--- NOTE | 2019-03-06 07:35 | XCELERA REPORT ---
[address] [address] Lower Extremity Venous Evaluation Procedure: Color flow and duplex imaging bilaterally of the veins of the lower extremities as well as the Common Femoral veins. Right Sided Venous Evaluation Challenging study due to body habitus. Normal vessel filling wall to wall, compression and augmentation as well as Colour flow down to the infrageniculate veins. Left Sided Venous Evaluation Challenging study due to body habitus. Normal vessel filling wall to wall, compression and augmentation as well as Colour flow down to the infrageniculate veins. Interpretation Summary No duplex evidence of DVT or obstruction in the bilateral lower extremities. Name: BLANCA BRASWELL Age: 49 yrs Gender: Female : 1970 Patient Status: Outpatient Patient Location: [facility] Study Date: 03/05/2019 03:54 PM Reason For Study: SWELLING Ordering Physician: CHAVA BARRERA Performed By: Dina Monge : CHAVA BARRERA > Maximo Ward
== END ==
LOC: RAD 15:19
PROVIDERS: ATTEND Internal Medicine Geriatric Medicine
DX: R22.31 Localized swelling, mass and lump, right upper limb (principal); M71.21 Synovial cyst of popliteal space [Baker], right knee
CPT/HCPCS: 76882; 93970; 93971